=== PATIENT | female | born 1975 | race Caucasian/White ===

== ENCOUNTER → 2017-07-31 | Outpatient (CLI) | payer MEDICAID, SELFPAY | PROVIDERS: Family Provider Emergency Medicine; PCP Emergency Medicine; Visit Provider Emergency Medicine | DX: M54.5 Low back pain (principal) | CPT/HCPCS: 72148; 76376 ==

== ENCOUNTER 2017-08-20 18:55 | Emergency (ER) | payer MEDICAID, SELFPAY ==
[2017-08-20 18:56] VITALS: BP 82/51; PULSE 71; RESP 18; TEMP 36.9; O2SAT 95; BMI 36.9
--- NOTE | 2017-08-20 19:50 | XR_ITS ---
XR chest portable HISTORY: ITS.REASON: chest pain ORDERING PHYSICIAN: Anish Bhatti MD PATIENT AGE: 41 years COMPARISON: None available FINDINGS: The cardiomediastinal silhouette and pulmonary vascularity are within normal limits. There is a 7 mm nodular opacity in the right hilar region. While this may be related to a vessel on end, one cannot exclude possibility of a pulmonary nodule. As this is not readily apparent on the previous exam. The study is however slightly rotated. The lungs are otherwise clear with no acute findings.. No acute bony abnormalities. IMPRESSION: 1. No acute finding. 2. Nodular opacity right perihilar region possibly related to a vessel on end with mild rotation. Recommend upright PA and lateral chest for further evaluation.
[2017-08-20 20:06] LABS: Basophils # 0.1 K/mm3 (0-0.2); Basophils % 0.9 % (0.1-2.0); Eosinophils # 0.1 K/mm3 (0.0-0.4); Eosinophils % 1.5 % (0.1-12.0); Hemoglobin 14.7 g/dL (12.2-16.2); Lymphocytes # 3.9 K/mm3 (0.7-4.5); Lymphocytes % 40.5 K/mm3 (10-50); Mean Corpuscular HGB Conc 33.5 g/dL (31.8-35.4); Mean Corpuscular Hemoglobin 31.5 pg (27.0-31.2); Mean Corpuscular Volume 93.8 fl (81-99); Mean Platelet Volume 9.5 fl (7.4-10.4); Monocytes # 0.5 K/mm3 (0.1-1.0); Monocytes % 5.1 % (1.7-9.3); Neutrophils # 4.9 K/mm3 (1.8-7.8); Platelet Count 190 K/mm3 (142-424); Red Blood Count 4.69 M/mm3 (4.20-5.40); Red Cell Distribution Width 13.8 % (11.5-17.5); White Blood Count 9.5 K/mm3 (4.8-10.8)
--- NOTE | 2017-08-20 20:26 | PC.PHONENOTE ---
pt's yelled for help myself and Ekaterina went in and witnessedshaking and jerking on the bed, advised pt was having a seizure and she had a hx of them. Pt monitored and made sure she did not injure herself. Seizure pads in place at this time. notified.
[2017-08-20 20:27] LABS: Alanine Aminotransferase 23 U/L (12-78); Albumin Level 3.8 gm/dL (3.4-5.0); Alkaline Phosphatase 62 U/L (46-116); Aspartate Amino Transferase 16 U/L (15-37); Bilirubin,Total 0.3 mg/dL (0.2-1.0); Blood Urea Nitrogen 12 mg/dL (7-18); Calcium 9.2 mg/dL (8.5-10.1); Carbon Dioxide 33 mmol/L (21.0-32.0); Chloride 101 mmol/L (98-107); Creatine Kinase 79 U/L (26-192); Creatinine Clearance Estimated 176 mL/min (0-300); Creatinine,Serum 0.76 mg/dL (0.55-1.02); Estimated Glomerular Filt Rate 84 ml/min (>60); GFR (African American) 102 ML/MIN (>60); Globulin 3.8 gm/dl (1.3-3.2); Glucose 85 mg/dL (74-106); Sodium 138 mmol/L (136-145); Total Protein,Serum 7.6 gm/dL (6.4-8.2); Troponin I < 0.02 ng/ml (0.00-0.06)
[2017-08-20 20:31] LABS: CKMB Relative Index 0.6 U/L (0-4.0); Creatine Kinase MB < 0.5 mg/ml (0.0-3.6)
--- NOTE | 2017-08-20 22:11 | HMH.EDCP ---
ED Disposition Clinical Impression: Atypical chest pain Disposition: Home, Self-Care Condition on Discharge: Good Instructions: DI for Atypical Chest Pain Additional Instructions: see pcp for follow up Referrals: Jeevan Kevin MD [Primary Care Provider] - - Critical Care Critical Care Time: No Attestation: On 08/20/17, the high probability of a clinically significant, sudden or life threatening deterioration of the following system(s) required my full and direct attention, intervention and personal management. The time I documented below is in addition to time spent performing reported procedures but includes the following listed in this critical care notation. Medical Decision Making - Medical Records Medical records reviewed: Yes: I reviewed the patient's medical records. Vital Signs: 08/20/17 18:56 Temperature 98.4 F Temperature Source Oral Pulse Rate [Right Radial] 71 Respiratory Rate 18 Blood Pressure [Right Arm] 82/51 Blood Pressure Mean [Right Arm] 61 Blood Pressure Source [Right Arm] Automatic Cuff Blood Pressure Position [Right Arm] Supine 02 Sat by Pulse Oximetry 95 Oxygen Delivery Method Room Air - Lab Data Lab Results 08/20/17 19:00: WBC 9.5, RBC 4.69, Hgb 14.7, Hct 44.0, MCV 93.8, MCH 31.5 H, MCHC 33.5, RDW 13.8, Plt Count 190, MPV 9.5, Neut % (Auto) 52.0, Lymph % (Auto) 40.5, [place] % (Auto) 5.1, Eos % (Auto) 1.5, Baso % (Auto) 0.9, Neut # (Auto) 4.9, Lymph # (Auto) 3.9, [place] # (Auto) 0.5, Eos # (Auto) 0.1, Baso # (Auto) 0.1 08/20/17 19:00: Sodium 138, Potassium 4.0, Chloride 101, Carbon Dioxide 33 H, Anion Gap 8.0, BUN 12, Creatinine 0.76, Estimated Creat Clear 176, Estimated GFR 84, Est GFR ( Amer) 102, Glucose 85, Calcium 9.2, Total Bilirubin 0.3, AST 16, ALT 23, Alkaline Phosphatase 62, Total Creatine Kinase 79, CK-MB (CK-2) < 0.5, CK-MB (CK-2) Rel Index 0.6, Troponin I < 0.02, Total Protein 7.6, Albumin 3.8, Globulin 3.8 H, Albumin/Globulin Ratio 1.0 L Result diagrams: 08/20/17 19:00 08/20/17 19:00 Orders (Tests/Meds): ORDERS Category Date Time Status XR chest portable Stat Exams 08/20/17 19:50 Taken - Radiology Data #1 Image Reviewed: Yes I reviewed the patient's radiology image Preliminary Findings: Normal/NAD - ECG Data Tracing #1 I reviewed this ECG and interpreted as documented below: Ischemic changes: non-specific ST-T wave changes - Leonid Inquiry Pt receiving controlled substance: No Chest Pain HPI - General Chief Complaint: Chest Pain Stated Complaint: CHEST PAIN Time Seen by Provider: 08/20/17 20:30 Mode of Arrival: Ambulatory Source of Information: Patient, Significant Other, Medical Record Limitations: No Limitations Description of Symptoms (Recalled from ER Triage Doc. by RN): PT STATES THATS SHE HAS BEEN HAVING CHEST PAIN ALL DAY. PAIN FEELS LIKE SHE HAS SOMETHING SITTING ON HER CHEST AT A PAIN RATING OF 9 OUT OF 10. - History of Present Illness HPI narrative: this wf with ant chest pain today with no sob and no fever or chills no known card disease complaint: chest pain Onset (ago): day(s) Duration: now resolved Activity at onset: other Pain location: epigastric Pain radiation: none Relieving factors: nothing Risk Factors for CAD: Family Hx of CAD, Smoking Treatments prior to or on arrival for Cardiac Chest Pain: none - Related Data Allergies Allergy/AdvReac Type Severity Reaction Status Date / Time codeine [CODEINE] Allergy Intermediate Verified 08/20/17 19:04 Penicillins Allergy Intermediate Verified 08/20/17 19:04 [facility] History I have reviewed the patient's past medical history: Yes Fractures: Yes (FEMUR JAMES) - *Social History Smoking Status: Former smoker Tobacco Type: cigarettes Alcohol Intake: never - Psychiatric History Expresses thoughts of harming self/others: None Suicide Plan Description: No Plan ROS Obtained: Yes All systems reviewed & no additional complaints - Consti
--- NOTE | 2017-08-20 22:18 | ED_ITS ---
ED Disposition Clinical Impression: Atypical chest pain Disposition: Home, Self-Care Condition on Discharge: Good Instructions: DI for Atypical Chest Pain Additional Instructions: see pcp for follow up Referrals: Jeevan Kevin MD [Primary Care Provider] - - Critical Care Critical Care Time: No Attestation: On 08/20/17, the high probability of a clinically significant, sudden or life threatening deterioration of the following system(s) required my full and direct attention, intervention and personal management. The time I documented below is in addition to time spent performing reported procedures but includes the following listed in this critical care notation. Medical Decision Making - Medical Records Medical records reviewed: Yes: I reviewed the patient's medical records. Vital Signs: 08/20/17 18:56 Temperature 98.4 F Temperature Source Oral Pulse Rate [Right Radial] 71 Respiratory Rate 18 Blood Pressure [Right Arm] 82/51 Blood Pressure Mean [Right Arm] 61 Blood Pressure Source [Right Arm] Automatic Cuff Blood Pressure Position [Right Arm] Supine 02 Sat by Pulse Oximetry 95 Oxygen Delivery Method Room Air - Lab Data Lab Results 08/20/17 19:00: WBC 9.5, RBC 4.69, Hgb 14.7, Hct 44.0, MCV 93.8, MCH 31.5 H, MCHC 33.5, RDW 13.8, Plt Count 190, MPV 9.5, Neut % (Auto) 52.0, Lymph % (Auto) 40.5, [place] % (Auto) 5.1, Eos % (Auto) 1.5, Baso % (Auto) 0.9, Neut # (Auto) 4.9 , Lymph # (Auto) 3.9, [place] # (Auto) 0.5, Eos # (Auto) 0.1, Baso # (Auto) 0.1 08/20/17 19:00: Sodium 138, Potassium 4.0, Chloride 101, Carbon Dioxide 33 H, Anion Gap 8.0, BUN 12, Creatinine 0.76, Estimated Creat Clear 176, Estimated GFR 84, Est GFR ( Amer) 102, Glucose 85, Calcium 9.2, Total Bilirubin 0.3 , AST 16, ALT 23, Alkaline Phosphatase 62, Total Creatine Kinase 79, CK-MB (CK-2 ) < 0.5, CK-MB (CK-2) Rel Index 0.6, Troponin I < 0.02, Total Protein 7.6, Albumin 3.8, Globulin 3.8 H, Albumin/Globulin Ratio 1.0 L Result diagrams: 08/20/17 19:00 08/20/17 19:00 Orders (Tests/Meds): ORDERS Category Date Time Status XR chest portable Stat Exams 08/20/17 19:50 Taken - Radiology Data #1 Image Reviewed: Yes I reviewed the patient's radiology image Preliminary Findings: Normal/NAD - ECG Data Tracing #1 I reviewed this ECG and interpreted as documented below: Ischemic changes: non-specific ST-T wave changes - Leonid Inquiry Pt receiving controlled substance: No Chest Pain HPI - General Chief Complaint: Chest Pain Stated Complaint: CHEST PAIN Time Seen by Provider: 08/20/17 20:30 Mode of Arrival: Ambulatory Source of Information: Patient, Significant Other, Medical Record Limitations: No Limitations Description of Symptoms (Recalled from ER Triage Doc. by RN): PT STATES THATS SHE HAS BEEN HAVING CHEST PAIN ALL DAY. PAIN FEELS LIKE SHE HAS SOMETHING SITTING ON HER CHEST AT A PAIN RATING OF 9 OUT OF 10. - History of Present Illness HPI narrative: this wf with ant chest pain today with no sob and no fever or chills no known card disease complaint: chest pain Onset (ago): day(s) Duration: now resolved Activity at onset: other Pain location: epigastric Pain radiation: none Relieving factors: nothing Risk Factors for CAD: Family Hx of CAD, Smoking Treatments prior to or on arrival for Cardiac Chest Pain: none - Related Data
== END 2017-08-20 22:26 | disposition left against medical advice (07) ==
PROVIDERS: Emergency Provider Emergency Medicine; Family Provider Emergency Medicine; PCP Emergency Medicine
DX: R07.89 Other chest pain (principal); Z87.891 Personal history of nicotine dependence; Z88.0 Allergy status to penicillin; Z88.6 Allergy status to analgesic agent
CPT/HCPCS: 71045; 80053; 82550; 82553; 84484; 85025; 93005; 99283

== ENCOUNTER → 2017-10-22 15:22 | Outpatient (CLI) | payer MEDICAID, SELFPAY ==
[2017-10-22 20:18] LABS: Alanine Aminotransferase 29 U/L (12-78); Albumin Level 3.7 gm/dL (3.4-5.0); Albumin/Globulin Ratio 1.2 (1.1-1.8); Alkaline Phosphatase 66 U/L (46-116); Anion Gap 11.6 mEq/L (5-15); Aspartate Amino Transferase 14 U/L (15-37); Bilirubin,Total 0.4 mg/dL (0.2-1.0); Blood Urea Nitrogen 9 mg/dL (7-18); Calcium 9.1 mg/dL (8.5-10.1); Carbon Dioxide 31 mmol/L (21.0-32.0); Chloride 103 mmol/L (98-107); Creatinine,Serum 0.61 mg/dL (0.55-1.02); Estimated Glomerular Filt Rate 108 ml/min (>60); Free T4 (Free Thyroxine) 0.99 ng/dl (0.76-1.46); GFR (African American) 131 ML/MIN (>60); Globulin 3.2 gm/dl (1.3-3.2); Glucose 82 mg/dL (74-106); Potassium 4.6 mmoL/L (3.5-5.1); Sodium 141 mmol/L (136-145); Thyroid Stimulating Hormone 1.73 uIU/ml (0.358-3.740); Total Protein,Serum 6.9 gm/dL (6.4-8.2)
[2017-10-22 23:12] LABS: Amphetamine/Metha Screen,Urine Negative ng/mL (<1000); Barbiturates Screen,Urine Negative ng/mL (<200); Benzodiazepines Screen,Urine Negative ng/mL (200); Cannabinoid Screen,Urine Negative ng/mL (<50); Cocaine Screen,Urine Negative ng/g (<300); Methadone Screen,Urine Negative ng/mL (<300); Opiate Screen,Urine Negative ng/mL (<300); Phencyclidine Screen,Urine Negative ng/mL (<25)
== END ==
PROVIDERS: Visit Provider Nurse Practitioner Family
DX: Z79.899 Other long term (current) drug therapy (principal); R25.2 Cramp and spasm; R63.5 Abnormal weight gain
CPT/HCPCS: 80053; 80305; 84439; 84443

== ENCOUNTER → 2017-11-03 11:04 | Outpatient (CLI) | payer MEDICAID, SELFPAY ==
[2017-11-03 11:09] LABS: Microscopic, Urine URINE MICROSCOPIC (MICROSCOPIC)
--- NOTE | 2017-11-03 11:23 | XR_ITS ---
XR knee RT 4V HISTORY: Pain following injury ITS.REASON: s/p fall ORDERING PHYSICIAN: Trip Velazquez MD PATIENT AGE: 42 years COMPARISON: None FINDINGS: No acute fracture or dislocation. There is slight decrease in the joint space medially consistent with minimal osteoarthritic change. IMPRESSION: Minimal osteoarthritic change medial compartment otherwise negative
--- NOTE | 2017-11-03 11:23 | XR_ITS ---
XR ankle RT min 3V HISTORY: Pain and swelling following injury ITS.REASON: right ankle and foot swelling ORDERING PHYSICIAN: Trip Velazquez MD PATIENT AGE: 42 years COMPARISON: None FINDINGS: No fracture or dislocation. No lytic or blastic change. There is normal mineralization.. The joint spaces are well-preserved. No significant degenerative/arthritic changes. No erosive changes evident. IMPRESSION: Negative ankle, no acute finding
[2017-11-03 11:25] LABS: Appearance,Urine CLEAR (Clear); Bilirubin,Urine Negative (Negative); Blood, Urine Negative (Negative); Color,Urine YELLOW (Yellow); Glucose,Urine (UA) Negative (Negative); Ketones,Urine Negative (Negative); Leukocyte Esterase,Urine Negative (Negative); Nitrate,Urine Negative (Negative); Protein,Urine Negative (Negative); Specific Gravity, Urine 1.015 (1.005-1.030); Urobilinogen,Urine 0.2 EU/dl (0.2)
[2017-11-03 11:26] LABS: Basophils # 0.1 K/mm3 (0-0.2); Basophils % 0.4 % (0.1-2.0); Eosinophils # 0.1 K/mm3 (0.0-0.4); Eosinophils % 0.9 % (0.1-12.0); Hematocrit 47.8 % (37.0-47.0); Lymphocytes # 3.2 K/mm3 (0.7-4.5); Lymphocytes % 27.7 K/mm3 (10-50); Mean Corpuscular HGB Conc 33.4 g/dL (31.8-35.4); Mean Corpuscular Hemoglobin 31.8 pg (27.0-31.2); Mean Corpuscular Volume 95.2 fl (81-99); Mean Platelet Volume 9.3 fl (7.4-10.4); Monocytes # 0.5 K/mm3 (0.1-1.0); Monocytes % 4.6 % (1.7-9.3); Neutrophils # 7.6 K/mm3 (1.8-7.8); Neutrophils % 66.3 % (37.0-80.0); Platelet Count 208 K/mm3 (142-424); Red Blood Count 5.02 M/mm3 (4.20-5.40); Red Cell Distribution Width 13.5 % (11.5-17.5); White Blood Count 11.5 K/mm3 (4.8-10.8)
[2017-11-03 11:39] LABS: Bacteria,Urine Trace /lpf
[2017-11-03 13:01] LABS: Alanine Aminotransferase 23 U/L (12-78); Albumin Level 3.6 gm/dL (3.4-5.0); Albumin/Globulin Ratio 1.1 (1.1-1.8); Alkaline Phosphatase 62 U/L (46-116); Anion Gap 9.2 mEq/L (5-15); Aspartate Amino Transferase 20 U/L (15-37); Bilirubin,Total 0.4 mg/dL (0.2-1.0); Blood Urea Nitrogen 9 mg/dL (7-18); Carbon Dioxide 32 mmol/L (21.0-32.0); Chloride 100 mmol/L (98-107); Creatinine,Serum 0.63 mg/dL (0.55-1.02); Estimated Glomerular Filt Rate 104 ml/min (>60); GFR (African American) 126 ML/MIN (>60); Globulin 3.4 gm/dl (1.3-3.2); Glucose 91 mg/dL (74-106); Potassium 4.2 mmoL/L (3.5-5.1); Sodium 137 mmol/L (136-145)
== END ==
PROVIDERS: PCP Nurse Practitioner Family; Visit Provider Obstetrics & Gynecology
DX: M25.561 Pain in right knee (principal); M25.571 Pain in right ankle and joints of right foot; W19.XXXA Unspecified fall, initial encounter
CPT/HCPCS: 36415; 73564; 73610; 80053; 81001; 85025

== ENCOUNTER 2017-11-10 07:08 | Day surgery (SDC) | payer MEDICAID, SELFPAY ==
[2017-11-10] VITALS (23 sets, daily range): BP systolic 118–196; BP diastolic 60–148; PULSE 53–65; RESP 12–20; TEMP 36.1–43; O2SAT 89–96; BMI 37.2
--- NOTE | 2017-11-10 08:09 | HMH.ANESCL ---
[facility] Anesthesia Checklist - Patient Identification Patient Identification: Arm Band, Verbal (Name & ) - Structural Data Admitted From: Home Planned Operative Procedure/s: a and p repair Consent for Planned Operative Procedure(s) Verified: Yes Verified Documents: Surgical Consent, History and Physical - NPO Status Verified Time NPO: 00:00 - Chart Verification Results Verified: CBC, BMP - Additional verifications Patient : No Anesthesia Reactions: No Hx Blood Transfusions: No Blood Transfusion Reaction: No Cephalosporin Allergy: No Previous Colonoscopy: No - Cardiovascular Assessment Heart Sounds: S1 & S2 Pulse Strength: Baseline Pulse Rhythm: Regular Peripheral Edema: No - Airway Assessment C-Spine Mobility Assessed: Yes TMJ Mobility Assessed: Yes Dentition: Good Dentition - Neurological Assessment Level of Consciousness: Awake, Alert, Appropriate Hx Seizures: Yes (last one 3 months ago) Numbness or tingling in extremities: No - Anesthesia Plan Anesthesia Risk discussed: Yes Anesthesia Plan: Verified ASA Class: II Anesthesia Type: General [facility] Anesthesia HX I have reviewed the patient's past medical history: Yes Medical History: Reports:: Anxiety, Depression, Gastroesophageal Reflux Disease(GERD), Hypertension, Seizures Denies:: Cancer, Diabetes Mellitus Type 1, Diabetes Mellitus Type 2, MRSA Other Medical History: Reports: Arthritis, Other. Denies: Blood Transfusion Reaction Laterality Cases: Bilateral: Other Other Surgeries: Yes: Appendectomy, Cholecystectomy, Other Amputation: No Fractures: Yes (FEMUR JAMES) *Family Hx:: Asthma, Cancer, Diabetes, Heart Attack, Hyperlipidemia, Hypertension, Stroke, Thyroid Disorder
--- NOTE | 2017-11-10 08:12 | P.PN_ITS ---
[facility] Anesthesia Checklist - Patient Identification Patient Identification: Arm Band, Verbal (Name & ) - Structural Data Admitted From: Home Planned Operative Procedure/s: a and p repair Consent for Planned Operative Procedure(s) Verified: Yes Verified Documents: Surgical Consent, History and Physical - NPO Status Verified Time NPO: 00:00 - Chart Verification Results Verified: CBC, BMP - Additional verifications Patient : No Anesthesia Reactions: No Hx Blood Transfusions: No Blood Transfusion Reaction: No Cephalosporin Allergy: No Previous Colonoscopy: No - Cardiovascular Assessment Heart Sounds: S1 & S2 Pulse Strength: Baseline Pulse Rhythm: Regular Peripheral Edema: No - Airway Assessment C-Spine Mobility Assessed: Yes TMJ Mobility Assessed: Yes Dentition: Good Dentition - Neurological Assessment Level of Consciousness: Awake, Alert, Appropriate Hx Seizures: Yes (last one 3 months ago) Numbness or tingling in extremities: No - Anesthesia Plan Anesthesia Risk discussed: Yes Anesthesia Plan: Verified ASA Class: II Anesthesia Type: General [facility] Anesthesia HX I have reviewed the patient's past medical history: Yes Medical History: Reports:: Anxiety, Depression, Gastroesophageal Reflux Disease( GERD), Hypertension, Seizures Denies:: Cancer, Diabetes Mellitus Type 1, Diabetes Mellitus Type 2, MRSA Other Medical History: Reports: Arthritis, Other. Denies: Blood Transfusion Reaction Laterality Cases: Bilateral: Other Other Surgeries: Yes: Appendectomy, Cholecystectomy, Other Amputation: No Fractures: Yes (FEMUR JAMES) *Family Hx:: Asthma, Cancer, Diabetes, Heart Attack, Hyperlipidemia, Hypertension, Stroke, Thyroid Disorder
--- NOTE | 2017-11-10 09:15 | HMH.OPNOTE ---
Date of procedure: 11/10/17 Pre-op Diagnosis:: Symptomatic pelvic relaxation Post-op Diagnosis:: Symptomatic pelvic relaxation Procedure performed:: Anterior and posterior colporrhaphy's Surgeon:: Trip Vealzquez MD Starbucks Clerk(s):: DANIEL Bustamante STAMP MOUNTER:: Jaylon Urbina Anesthesia: GETA Estimated blood loss (mL): 100 Operative findings:: Symptomatic pelvic relaxation Operative note:: After the patient was prepped and draped in usual fashion and general anesthesia was administered, a weighted speculum was placed within the posterior fourchette of the vagina, and the vaginal cuff was grasped at each end with a long Devika clamp. The intervening scar of the vaginal cuff was excised with Metzenbaum scissors. The vaginal mucosa was then undermined up the midline to the urethral meatus, Allis clamps being placed on either side along the way. The endopelvic fascia was sharply and bluntly dissected free, and then interrupted U-sutures of 2-0 Vicryl were placed to elevate the urethrovesical angle. The excess vaginal mucosa was then trimmed, and the mucosa was closed with a running locked suture of 2-0 Vicryl. The vaginal cuff was closed with a running locked suture of #1 Vicryl. The posterior repair was carried out as had been the anterior repair, albeit in a yash-shaped fashion. Pelvic support appeared good at the close of the procedure. The urine was clear in the Bentley catheter. The sponge and needle count was correct. The patient tolerated the procedure well, and was taken to PACU in excellent condition. She will be discharged today, with her Bentley catheter, if her vital signs are stable. Condition: stable Disposition: same day Specimens:: None Complications:: None
--- NOTE | 2017-11-10 09:19 | P.OP_ITS ---
Date of procedure: 11/10/17 Pre-op Diagnosis:: Symptomatic pelvic relaxation Post-op Diagnosis:: Symptomatic pelvic relaxation Procedure performed:: Anterior and posterior colporrhaphy's Surgeon:: Trip Velazquez MD Cosmetics Machine Operator(s):: DANIEL Bustamante TEAM LEADER SURGERY:: Jaylon Urbina Anesthesia: GETA Estimated blood loss (mL): 100 Operative findings:: Symptomatic pelvic relaxation Operative note:: After the patient was prepped and draped in usual fashion and general anesthesia was administered, a weighted speculum was placed within the posterior fourchette of the vagina, and the vaginal cuff was grasped at each end with a long Devika clamp. The intervening scar of the vaginal cuff was excised with Metzenbaum scissors. The vaginal mucosa was then undermined up the midline to the urethral meatus, Allis clamps being placed on either side along the way. The endopelvic fascia was sharply and bluntly dissected free, and then interrupted U-sutures of 2-0 Vicryl were placed to elevate the urethrovesical angle. The excess vaginal mucosa was then trimmed, and the mucosa was closed with a running locked suture of 2-0 Vicryl. The vaginal cuff was closed with a running locked suture of #1 Vicryl. The posterior repair was carried out as had been the anterior repair, albeit in a yash-shaped fashion. Pelvic support appeared good at the close of the procedure. The urine was clear in the Bentley catheter. The sponge and needle count was correct. The patient tolerated the procedure well, and was taken to PACU in excellent condition. She will be discharged today, with her Bentley catheter, if her vital signs are stable. Condition: stable Disposition: same day Specimens:: None Complications:: None
--- NOTE | 2017-11-10 09:25 | HMH.ANESI ---
[facility] Anesthesia Record Part I Intake, IV Amount: 1,500 Estimated blood loss (mL): 50 Urine output (mL): 200 Blood Pressure: 150/100 SaO2: 93 Pulse Rate: 58 Respiratory Rate: 12 Temperature: 97.7 F Patient is:: Awake, Stable Stable to PACU at:: 09:20
--- NOTE | 2017-11-10 09:27 | P.PN_ITS ---
[facility] Anesthesia Record Part II Discharge Time: 09:50 Destination: [facility] PACU nurse assessment reviewed?: Yes Patient Condition:: Good Anesthesia Complications:: None
--- NOTE | 2017-11-10 09:27 | HMH.ANESII ---
[facility] Anesthesia Record Part II Discharge Time: 09:50 Destination: [facility] PACU nurse assessment reviewed?: Yes Patient Condition:: Good Anesthesia Complications:: None
[2017-11-10 10:37] LABS: Hematocrit 46.4 % (37.0-47.0); Hemoglobin 15.2 g/dL (12.2-16.2)
[2017-11-10 11:13] LABS: Microscopic,Cath URINE MICROSCOPIC (MICROSCOPIC)
[2017-11-10 11:57] LABS: Appearance,Urine/Cath CLEAR (Clear); Bilirubin,Cath Negative (Negative); Blood, Urine/Cath Negative (Negative); Color,Urine/Cath YELLOW (Yellow); Glucose,Urine/Cath (UA) Negative (Negative); Ketones,Urine/Cath Negative (Negative); Leukocyte Esterase,Cath Negative (Negative); Nitrate,Cath Negative (Negative); Protein,Urine/Cath Negative (Negative); Urobilinogen,Cath 0.2 EU/dl (0.2)
[2017-11-10 12:16] LABS: Bacteria,Urine/Cath TRACE /lpf
== END 2017-11-10 10:45 | disposition home or self-care (01) ==
LOC: OR 07:10
PROVIDERS: Family Provider Emergency Medicine; PCP Nurse Practitioner Family; Visit Provider Obstetrics & Gynecology
PROC: (CPT 57288; principal; 2017-11-10 08:30)
DX: N81.89 Other female genital prolapse (principal)
CPT/HCPCS: 57260; 81001; 85014; 85018; 96372; 96374; J1956; J2405

== ENCOUNTER → 2018-01-08 11:10 | Outpatient (CLI) | payer MEDICAID, SELFPAY ==
--- NOTE | 2018-01-08 11:11 | MR_ITS ---
MR knee RT wo con HISTORY: Right knee pain, prior fall with anterior and posterior pain ITS.REASON: osteoarthritis right knee ORDERING PHYSICIAN: Darin Ramirez MD PATIENT AGE: 42 years Comparison: 11/03/2017 TECHNIQUE: Standard multiplanar multiecho sequences are performed without contrast. FINDINGS: The cruciate ligaments, collateral ligaments, patellar tendon, and quadriceps tendon are intact. Posterior patellar cartilage is well-preserved. No meniscal tear apparent There are tricompartmental osteoarthritic changes with some decrease in the joint space and osteophyte formation. There is a small knee joint effusion. No fracture or dislocation. No bone marrow edema. IMPRESSION: 1. No internal derangement 2. Osteoarthritis with small knee joint effusion
== END ==
PROVIDERS: Family Provider Emergency Medicine; PCP Nurse Practitioner Family; Visit Provider Orthopaedic Surgery
DX: M17.11 Unilateral primary osteoarthritis, right knee (principal)
CPT/HCPCS: 73721

== ENCOUNTER → 2018-01-19 09:37 | Outpatient (POV) | payer MEDICAID, SELFPAY ==
[2018-01-19 09:46] VITALS: BP 118/74; PULSE 74; RESP 18; O2SAT 98
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
== END ==
PROVIDERS: Family Provider Emergency Medicine; PCP Nurse Practitioner Family; Visit Provider Clinical Nurse Specialist Family Health
DX: M46.1 Sacroiliitis, not elsewhere classified (principal)
CPT/HCPCS: 99202

== ENCOUNTER → 2018-01-28 10:59 | Outpatient (REF) | payer MEDICAID, SELFPAY ==
[2018-01-28 13:45] LABS: Amphetamine/Metha Screen,Urine Negative ng/mL (<1000); Barbiturates Screen,Urine Negative ng/mL (<200); Benzodiazepines Screen,Urine Negative ng/mL (200); Cannabinoid Screen,Urine Negative ng/mL (<50); Cocaine Screen,Urine Negative ng/g (<300); Methadone Screen,Urine Negative ng/mL (<300); Opiate Screen,Urine Negative ng/mL (<300); Phencyclidine Screen,Urine Negative ng/mL (<25)
== END ==
LOC: LAB 10:59
PROVIDERS: Visit Provider Nurse Practitioner Family
DX: G62.9 Polyneuropathy, unspecified (principal)
CPT/HCPCS: 80305

== ENCOUNTER → 2018-02-23 10:26 | Outpatient (CLI) | payer MEDICAID, SELFPAY ==
--- NOTE | 2018-02-23 10:27 | US_ITS ---
US transvaginal HISTORY: Previous hysterectomy ITS.REASON: pelvic pain ORDERING PHYSICIAN: Trip Velazquez MD PATIENT AGE: 42 years Comparison: Transvaginal ultrasound pelvis 05/06/2017 FINDINGS: The vaginal cuff appears normal. The left ovary measures 1.8 x 1.5 cm and shows homogeneous echogenicity. The right ovary measures 1.3 x 1.8 x 1.4 cm. The right ovary appears normal as well. There is no abnormal fluid collection. There is normal-appearing bowel noted. IMPRESSION: Post hysterectomy, grossly normal-appearing ovaries bilaterally, no abnormal fluid collection identified
== END ==
PROVIDERS: Family Provider Emergency Medicine; PCP Nurse Practitioner Family; Visit Provider Obstetrics & Gynecology
DX: R10.2 Pelvic and perineal pain (principal)
CPT/HCPCS: 76830

== ENCOUNTER → 2018-03-01 09:52 | Outpatient (POV) | payer MEDICAID, SELFPAY ==
--- NOTE | 2018-03-01 10:20 | HMH.PAINSOAP ---
[facility] Pain Management SOAP Note Subjective:: Patient is a pleasant 42-year-old white female who we are treating for low back pain. Patient has recently had a bilateral SI joint injection she states she got no relief from. Patient does not have any updated MRI imaging. Patient states she can feel popping in her back at all times she rates her pain an 8 out of 10 she states nothing helps it. Patient is currently in a Suboxone clinic. And a narcotic candidate. We will fill an MRI for the patient to discern pathology. ROS General: no recent weight change, no fever, no sleep disturbances Respiratory: no cough, no shortness of air, no recurring pulmonary infections Cardiovascular/Peripheral Vascular: No chest pain, No palpitations, no edema, no shortness of breath. Gastrointestinal: no incontinence, normal bowel movements reported Genitourinary: no incontinence Musculoskeletal: Back pain, hip pain Psychiatric: normal mood/ affect Neurological: [denies weakness in extremities], [denies balance issues] Objective:: Physical Exam General: Alert and oriented x3, no acute distress, pleasant and cooperative, [on room air] Lungs: Resps E/U, Symmetrical chest expansion, Eyes: PERRL Musculoskeletal: Flexion and extension of lumbar spine somewhat guarded secondary to pain, deep tendon reflexes normal, strength in upper and lower extremities [5/5], [abnormal gait noted] Neurological: speech clear, farmer vegetable equal, no gross sensory deficits Assessment:: Back pain, leg pain, hip pain Plan:: We will order a MRI for the patient and follow-up with her after we get the results. We will then make a plan of care. This note was dictated using voice recognition software and may contain errors or omissions
--- NOTE | 2018-03-01 10:24 | P.CONS_ITS ---
[facility] Pain Management SOAP Note Subjective:: Patient is a pleasant 42-year-old white female who we are treating for low back pain. Patient has recently had a bilateral SI joint injection she states she got no relief from. Patient does not have any updated MRI imaging. Patient states she can feel popping in her back at all times she rates her pain an 8 out of 10 she states nothing helps it. Patient is currently in a Suboxone clinic. And a narcotic candidate. We will fill an MRI for the patient to discern pathology. ROS General: no recent weight change, no fever, no sleep disturbances Respiratory: no cough, no shortness of air, no recurring pulmonary infections Cardiovascular/Peripheral Vascular: No chest pain, No palpitations, no edema, no shortness of breath. Gastrointestinal: no incontinence, normal bowel movements reported Genitourinary: no incontinence Musculoskeletal: Back pain, hip pain Psychiatric: normal mood/ affect Neurological: [denies weakness in extremities], [denies balance issues] Objective:: Physical Exam General: Alert and oriented x3, no acute distress, pleasant and cooperative, [ on room air] Lungs: Resps E/U, Symmetrical chest expansion, Eyes: PERRL Musculoskeletal: Flexion and extension of lumbar spine somewhat guarded secondary to pain, deep tendon reflexes normal, strength in upper and lower extremities [5/5], [abnormal gait noted] Neurological: speech clear, veterinary manager equal, no gross sensory deficits Assessment:: Back pain, leg pain, hip pain Plan:: We will order a MRI for the patient and follow-up with her after we get the results. We will then make a plan of care. This note was dictated using voice recognition software and may contain errors or omissions
[2018-03-01 11:03] VITALS: BP 140/79; PULSE 56; RESP 18; O2SAT 98; BMI 37.3
== END ==
PROVIDERS: Family Provider Emergency Medicine; PCP Nurse Practitioner Family; Visit Provider Clinical Nurse Specialist Family Health
DX: M54.5 Low back pain (principal)
CPT/HCPCS: 99212

== ENCOUNTER → 2018-03-08 13:00 | Outpatient (CLI) | payer MEDICAID, SELFPAY ==
--- NOTE | 2018-03-08 13:03 | MR_ITS ---
MR lumbar spine wo con HISTORY: Low back pain, bilateral leg pain, clicking in the low back straightening back, prior fusion ITS.REASON: BACK PAIN ORDERING PHYSICIAN: Zainab Brown PATIENT AGE: 42 years Comparison: 07/31/2017 TECHNIQUE: Standard multiplanar multiecho sequences are performed without contrast. 3-D MIP and myelographic images are also rendered and reviewed FINDINGS: Normal alignment. The spinal cord ends at the L1 level. L1-L2 and L2-L3 show mild facet hypertrophic change. L3-L4: Mild disc desiccation with minimal bulging disc and facet hypertrophy. The disc is slightly eccentric toward the right as before with mild bilateral foraminal narrowing. L4-L5: Degenerative disc disease with bulging disc which is eccentric towards the left along with facet and ligamentum flavum hypertrophy with moderate left-sided foraminal narrowing. There is minimal anterolisthesis of L4.. L5-S1: Mild degenerative disc disease with minimal bulging disc. No disc herniation or canal stenosis. IMPRESSION: No change in the mild lumbar spondylosis with degenerative disc disease and facet and ligamentum flavum hypertrophy with bulging discs and foraminal narrowing as detailed above. No disc herniation or canal stenosis.
== END ==
PROVIDERS: Family Provider Emergency Medicine; PCP Nurse Practitioner Family; Visit Provider Clinical Nurse Specialist Family Health
DX: M54.5 Low back pain (principal)
CPT/HCPCS: 72148; 76376

== ENCOUNTER → 2018-03-22 11:39 | Outpatient (POV) | payer MEDICAID, SELFPAY ==
[2018-03-22 11:42] VITALS: BP 130/82; PULSE 61; RESP 18; O2SAT 98; BMI 38.8
--- NOTE | 2018-03-22 12:29 | XR_ITS ---
XR foot wt bearing LT 3V HISTORY: Pain following injury ITS.REASON: TOE FRACTURE, FOOT/ANKLE PAIN ORDERING PHYSICIAN: Zainab Brown PATIENT AGE: 42 years COMPARISON: None FINDINGS: No acute fracture or dislocation is evident. There is a well-circumscribed bony density at the medial aspect of the medial cuneiform at the first metatarsal tarsal junction and may represent an accessory center of ossification. There is minimal hallux valgus. IMPRESSION: No acute finding
--- NOTE | 2018-03-22 12:29 | XR_ITS ---
XR ankle wt bearing LT min 3V HISTORY: Ankle pain ITS.REASON: TOE FRACTURE, FOOT/ANKLE PAIN ORDERING PHYSICIAN: Zainab Brown PATIENT AGE: 42 years Comparison: None FINDINGS: No fracture or dislocation. No lytic or blastic change. There is normal mineralization.. The joint spaces are well-preserved. No significant degenerative/arthritic changes. No erosive changes evident. IMPRESSION: Negative ankle, no acute finding
--- NOTE | 2018-03-22 12:29 | XR_ITS ---
XR foot wt bearing RT 3V HISTORY: Pain following injury ITS.REASON: TOE FRACTURE, FOOT/ANKLE PAIN ORDERING PHYSICIAN: Zainab Brown PATIENT AGE: 42 years COMPARISON: None FINDINGS: No fracture or dislocation. No lytic or blastic change. There is normal mineralization.. The joint spaces are well-preserved. No significant degenerative/arthritic changes. No erosive changes evident. IMPRESSION: Negative, no acute finding
--- NOTE | 2018-03-22 12:29 | XR_ITS ---
XR ankle wt bearing RT min 3V HISTORY: Ankle pain ITS.REASON: TOE FRACTURE, FOOT/ANKLE PAIN ORDERING PHYSICIAN: Zainab Brown PATIENT AGE: 42 years Comparison: None FINDINGS: No fracture or dislocation. No lytic or blastic change. There is normal mineralization.. The joint spaces are well-preserved. No significant degenerative/arthritic changes. No erosive changes evident. IMPRESSION: Negative ankle, no acute finding
--- NOTE | 2018-03-22 13:01 | HMH.PAINSOAP ---
[facility] Pain Management SOAP Note Subjective:: She is a pleasant 42-year-old white female who presents today for follow-up in regards to her MRI. Her last visit however patient has had 2 falls and a trip to the ER after several days due to what she states broken her toes. We will set the patient up with a trapper bird. Patient rates her pain an 8 out of 10 mostly her bilateral feet. Patient does have some pathology on her MRI however it has been unchanged since her last one. ROS General: no recent weight change, no fever, no sleep disturbances Respiratory: no cough, no shortness of air, no recurring pulmonary infections Cardiovascular/Peripheral Vascular: No chest pain, No palpitations, no edema, no shortness of breath. Gastrointestinal: no incontinence, normal bowel movements reported Genitourinary: no incontinence Musculoskeletal: Bilateral foot pain Psychiatric: normal mood/ affect Neurological: [denies weakness in extremities], [denies balance issues] Objective:: Physical Exam General: Alert and oriented x3, no acute distress, pleasant and cooperative, [on room air] Lungs: Resps E/U, Symmetrical chest expansion, Eyes: PERRL Musculoskeletal: Flexion and extension of lumbar spine somewhat guarded secondary to pain, deep tendon reflexes normal, strength in upper and lower extremities [5/5], [abnormal gait noted], patient presents with a boot on her right foot and left foot wrapped in Cameron bandages. Neurological: speech clear, dish up person equal, no gross sensory deficits Assessment:: Bilateral foot pain, degenerative disc disease of lumbar spine Plan:: We will set her up for x-rays along with a trapper bird appointment in regards to her bilateral foot pain. We will follow-up with her in 2 months and see how she is doing. At this time patient's foot pain is worse than her back pain. We will readdress her back pain at her next visit. Patient is on Suboxone and is not a narcotic candidate. This note was dictated using voice recognition software and may contain errors or omissions
--- NOTE | 2018-03-22 13:05 | P.CONS_ITS ---
[facility] Pain Management SOAP Note Subjective:: She is a pleasant 42-year-old white female who presents today for follow-up in regards to her MRI. Her last visit however patient has had 2 falls and a trip to the ER after several days due to what she states broken her toes. We will set the patient up with a pot runner. Patient rates her pain an 8 out of 10 mostly her bilateral feet. Patient does have some pathology on her MRI however it has been unchanged since her last one. ROS General: no recent weight change, no fever, no sleep disturbances Respiratory: no cough, no shortness of air, no recurring pulmonary infections Cardiovascular/Peripheral Vascular: No chest pain, No palpitations, no edema, no shortness of breath. Gastrointestinal: no incontinence, normal bowel movements reported Genitourinary: no incontinence Musculoskeletal: Bilateral foot pain Psychiatric: normal mood/ affect Neurological: [denies weakness in extremities], [denies balance issues] Objective:: Physical Exam General: Alert and oriented x3, no acute distress, pleasant and cooperative, [ on room air] Lungs: Resps E/U, Symmetrical chest expansion, Eyes: PERRL Musculoskeletal: Flexion and extension of lumbar spine somewhat guarded secondary to pain, deep tendon reflexes normal, strength in upper and lower extremities [5/5], [abnormal gait noted], patient presents with a boot on her right foot and left foot wrapped in Cameron bandages. Neurological: speech clear, stock patch sawyer equal, no gross sensory deficits Assessment:: Bilateral foot pain, degenerative disc disease of lumbar spine Plan:: We will set her up for x-rays along with a pot runner appointment in regards to her bilateral foot pain. We will follow-up with her in 2 months and see how she is doing. At this time patient's foot pain is worse than her back pain. We will readdress her back pain at her next visit. Patient is on Suboxone and is not a narcotic candidate. This note was dictated using voice recognition software and may contain errors or omissions
== END ==
PROVIDERS: Family Provider Emergency Medicine; PCP Nurse Practitioner Family; Visit Provider Clinical Nurse Specialist Family Health
DX: M79.672 Pain in left foot (principal); M79.671 Pain in right foot; M51.36 Other intervertebral disc degeneration, lumbar region
CPT/HCPCS: 73610; 73630; 99213

== ENCOUNTER → 2018-03-25 11:13 | Outpatient (REF) | payer MEDICAID, SELFPAY ==
[2018-03-25 14:42] LABS: Amphetamine/Metha Screen,Urine Negative ng/mL (<1000); Barbiturates Screen,Urine Negative ng/mL (<200); Benzodiazepines Screen,Urine Negative ng/mL (<200); Cannabinoid Screen,Urine Negative ng/mL (<50); Cocaine Screen,Urine Negative ng/mL (<300); Methadone Screen,Urine Negative ng/mL (<300); Opiate Screen,Urine Negative ng/mL (<300); Phencyclidine Screen,Urine Negative ng/mL (<25)
== END ==
LOC: LAB 11:13
PROVIDERS: Visit Provider Nurse Practitioner Family
DX: Z79.899 Other long term (current) drug therapy (principal)
CPT/HCPCS: 80305

== ENCOUNTER → 2018-04-06 13:11 | Outpatient (CLI) | payer MEDICAID, SELFPAY | PROVIDERS: PCP Nurse Practitioner Family; Visit Provider Nurse Practitioner Family | DX: G47.00 Insomnia, unspecified (principal) | CPT/HCPCS: 95806 ==

== ENCOUNTER → 2018-04-16 08:11 | Outpatient (CLI) | payer MEDICAID, SELFPAY ==
--- NOTE | 2018-04-16 08:25 | MR_ITS ---
MR ankle LT wo/w con HISTORY: Left ankle pain following injury. Anterior pain ITS.REASON: left ankle pain ORDERING PHYSICIAN: Jocelyn Arndt DPM PATIENT AGE: 42 years Comparison: 03/22/2018 TECHNIQUE: Standard multiplanar multiecho sequences are performed without and with gadolinium enhancement. FINDINGS: Motion artifact does obscure fine detail. There is a nondisplaced longitudinal fracture involving the posterior aspect of the distal tibia. Bone marrow edema is present at that region. The fracture does extend into the articular surface of the distal tibia with some minimal cortical irregularity of the articular surface posteriorly. There is some mild edema at the sinus Tarsi nonspecific There is thickening of the anterior tibiofibular ligament which may be due to underlying sprain. There is tear of the anterior talofibular ligament. There may be a small with a residual ligament fiber at the ATFL however, this is abnormal. The ATFL should be much thicker than this. The posterior tibiofibular and posterior talofibular ligaments appear intact. A small cyst is present in the mid aspect of the calcaneus superiorly and medially measuring approximately 8 x 5 mm. The coronal images are somewhat limited by motion artifact. The fibers of the deltoid ligament are sparse. Sprain of the deltoid ligament or partial tear is a consideration. Please correlate with physical exam. Unable to completely assess due to the motion. No abnormal enhancement apparent. The tendons about the ankle appear intact. There is a small ankle joint effusion. Bone marrow edema involves the posterior aspect of the distal tibia as well as the posterior and lateral aspect of the distal tibia. IMPRESSION: 1. Nondisplaced longitudinal fracture of the posterior distal tibia with articular involvement with underlying bone marrow edema. There is ankle joint effusion 2. Tear of the ATFL. 3. Thickening of the anterior tibiofibular ligament suggesting partial tear or sprain. 4. The fibers of the deltoid ligament are sparse. Motion artifact does obscure fine detail at this region. Partial tear or sprain of the deltoid ligament is considered.
[2018-04-16 08:36] LABS: Blood Urea Nitrogen 16 mg/dL (7-18); Creatinine,Serum 0.79 mg/dL (0.55-1.02); Estimated Glomerular Filt Rate 80 ml/min (>60); GFR (African American) 97 ML/MIN (>60)
== END ==
PROVIDERS: Family Provider Emergency Medicine; PCP Nurse Practitioner Family; Visit Provider Podiatrist
DX: M25.572 Pain in left ankle and joints of left foot (principal); S93.432A Sprain of tibiofibular ligament of left ankle, initial encounter; S93.492A Sprain of other ligament of left ankle, initial encounter
CPT/HCPCS: 36415; 73223; 82565; 84520; A9576

== ENCOUNTER → 2018-04-23 10:49 | Outpatient (CLI) | payer MEDICAID, SELFPAY ==
[2018-04-23 18:38] LABS: Amphetamine/Metha Screen,Urine Negative ng/mL (<1000); Barbiturates Screen,Urine Negative ng/mL (<200); Benzodiazepines Screen,Urine Negative ng/mL (<200); Cannabinoid Screen,Urine Negative ng/mL (<50); Cocaine Screen,Urine Negative ng/mL (<300); Methadone Screen,Urine Negative ng/mL (<300); Opiate Screen,Urine Negative ng/mL (<300); Phencyclidine Screen,Urine Negative ng/mL (<25)
== END ==
PROVIDERS: Visit Provider Nurse Practitioner Family
DX: Z79.899 Other long term (current) drug therapy (principal)
CPT/HCPCS: 80305

== ENCOUNTER → 2018-05-24 11:56 | Outpatient (POV) | payer MEDICAID, SELFPAY ==
[2018-05-24 12:14] VITALS: BP 108/60; PULSE 58; RESP 18; O2SAT 95; BMI 37.3
--- NOTE | 2018-05-24 12:43 | HMH.PAINSOAP ---
[facility] Pain Management SOAP Note Subjective:: Patient is a pleasant 42-year-old white female who presents today for follow-up. Patient is being treated for back pain along with radicular symptoms. Patient states her pain has become worse and worse. She rates it an 8 out of 10 today. Patient would like to discuss neuro stimulation. Patient is in a Suboxone clinic is a not a candidate for narcotic medications. Patient would like to discuss a anti-inflammatory regimen. Patient states she is on Mobic previously however she has not been on it lately. ROS General: no recent weight change, no fever, no sleep disturbances Respiratory: no cough, no shortness of air, no recurring pulmonary infections Cardiovascular/Peripheral Vascular: No chest pain, No palpitations, no edema, no shortness of breath. Gastrointestinal: no incontinence, normal bowel movements reported Genitourinary: no incontinence Musculoskeletal: Back pain, leg pain Psychiatric: normal mood/ affect Neurological: [denies weakness in extremities], [denies balance issues] Objective:: Physical Exam General: Alert and oriented x3, no acute distress, pleasant and cooperative, [on room air] Lungs: Resps E/U, Symmetrical chest expansion, Eyes: PERRL Musculoskeletal: Flexion and extension of lumbar spine somewhat guarded secondary to pain, deep tendon reflexes normal, strength in upper and lower extremities [5/5], [abnormal gait noted] Neurological: speech clear, carroter equal, no gross sensory deficits Assessment:: Degenerative disc disease lumbar spine with lumbar radiculopathy Plan:: Patient and I discussed in neurostimulator. Patient would like to move forward with this. Patient's tried and failed physical therapy, injections, anti-inflammatories. We will also start her back on Celebrex 200 mg 1 p.o. daily. Patient is not a narcotic candidate due to her Suboxone use. I believe that this would increase her functionality on a long-term basis. I will follow-up with the patient after her psychological evaluation. This note was dictated using voice recognition software and may contain errors or omissions
--- NOTE | 2018-05-24 12:46 | P.CONS_ITS ---
[facility] Pain Management SOAP Note Subjective:: Patient is a pleasant 42-year-old white female who presents today for follow-up. Patient is being treated for back pain along with radicular symptoms. Patient states her pain has become worse and worse. She rates it an 8 out of 10 today. Patient would like to discuss neuro stimulation. Patient is in a Suboxone clinic is a not a candidate for narcotic medications. Patient would like to discuss a anti-inflammatory regimen. Patient states she is on Mobic previously however she has not been on it lately. ROS General: no recent weight change, no fever, no sleep disturbances Respiratory: no cough, no shortness of air, no recurring pulmonary infections Cardiovascular/Peripheral Vascular: No chest pain, No palpitations, no edema, no shortness of breath. Gastrointestinal: no incontinence, normal bowel movements reported Genitourinary: no incontinence Musculoskeletal: Back pain, leg pain Psychiatric: normal mood/ affect Neurological: [denies weakness in extremities], [denies balance issues] Objective:: Physical Exam General: Alert and oriented x3, no acute distress, pleasant and cooperative, [on room air] Lungs: Resps E/U, Symmetrical chest expansion, Eyes: PERRL Musculoskeletal: Flexion and extension of lumbar spine somewhat guarded seconda ry to pain, deep tendon reflexes normal, strength in upper and lower extremities [5/5], [abnormal gait noted] Neurological: speech clear, division operations manager equal, no gross sensory deficits Assessment:: Degenerative disc disease lumbar spine with lumbar radiculopathy Plan:: Patient and I discussed in neurostimulator. Patient would like to move forward with this. Patient's tried and failed physical therapy, injections, anti- inflammatories. We will also start her back on Celebrex 200 mg 1 p.o. daily. Patient is not a narcotic candidate due to her Suboxone use. I believe that this would increase her functionality on a long-term basis. I will follow-up with the patient after her psychological evaluation. This note was dictated using voice recognition software and may contain errors or omissions
== END ==
PROVIDERS: Family Provider Emergency Medicine; PCP Nurse Practitioner Family; Visit Provider Clinical Nurse Specialist Family Health
DX: M51.16 Intervertebral disc disorders with radiculopathy, lumbar region (principal)
CPT/HCPCS: 99213

== ENCOUNTER → 2018-06-16 19:07 | Outpatient (CLI) | payer MEDICAID, SELFPAY ==
[2018-06-16 19:50] LABS: Basophils # 0.1 K/mm3 (0-0.2); Basophils % 0.9 % (0.1-2.0); Eosinophils # 0.2 K/mm3 (0.0-0.4); Eosinophils % 1.7 % (0.1-12.0); Hematocrit 46.1 % (37.0-47.0); Lymphocytes # 3.9 K/mm3 (0.7-4.5); Lymphocytes % 37.8 % (10-50); Mean Corpuscular HGB Conc 32.5 g/dL (31.8-35.4); Mean Corpuscular Hemoglobin 31.2 pg (27.0-31.2); Mean Corpuscular Volume 95.9 fl (81-99); Mean Platelet Volume 10.4 fl (7.4-10.4); Monocytes # 0.6 K/mm3 (0.1-1.0); Monocytes % 5.5 % (1.7-9.3); Neutrophils # 5.6 K/mm3 (1.8-7.8); Neutrophils % 54.2 % (37.0-80.0); Platelet Count 187 K/mm3 (142-424); Red Blood Count 4.81 M/mm3 (4.20-5.40); Red Cell Distribution Width 13.7 % (11.5-17.5); White Blood Count 10.4 K/mm3 (4.8-10.8)
[2018-06-16 21:13] LABS: Alanine Aminotransferase 28 U/L (12-78); Albumin Level 3.6 gm/dL (3.4-5.0); Albumin/Globulin Ratio 1.1 (1.1-1.8); Alkaline Phosphatase 85 U/L (46-116); Anion Gap 14.3 mEq/L (5-15); Aspartate Amino Transferase 23 U/L (15-37); Bilirubin,Total 0.2 mg/dL (0.2-1.0); Blood Urea Nitrogen 14 mg/dL (7-18); Calcium 8.7 mg/dL (8.5-10.1); Carbon Dioxide 28 mmol/L (21.0-32.0); Chloride 99 mmol/L (98-107); Chol/HDL Ratio 3.3 (1-3.5); Cholesterol 169 mg/dL (140-200); Creatinine,Serum 0.89 mg/dL (0.55-1.02); Estimated Glomerular Filt Rate 70 ml/min (>60); GFR (African American) 85 ML/MIN (>60); Globulin 3.3 gm/dl (1.3-3.2); Glucose 93 mg/dL (74-106); HDL Cholesterol 52 mg/dL (29-89); LDL Cholesterol 90 mg/dL (0-130); Potassium 4.3 mmoL/L (3.5-5.1); Sodium 137 mmol/L (136-145); T4 (Thyroxine) 6.5 ug/dl (4.7-13.3); Thyroid Stimulating Hormone 1.08 uIU/ml (0.358-3.740); Total Protein,Serum 6.9 gm/dL (6.4-8.2); Triglycerides 137 mg/dL (30-200); VLDL Cholesterol 27 mg/dL (0-40)
[2018-06-18 15:52] LABS: Vitamin D 25 Hydroxy 35.6 ng/mL (30.0-100.0)
== END ==
LOC: LAB 19:08 → LAB.DROPOF 06-17 11:15
PROVIDERS: PCP Physician Assistant; Visit Provider Physician Assistant
DX: R53.83 Other fatigue (principal)
CPT/HCPCS: 80053; 80061; 82652; 84436; 84443; 85025

== ENCOUNTER → 2018-07-20 15:19 | Outpatient (CLI) | payer MEDICAID, SELFPAY ==
[2018-07-20 16:31] LABS: Erythrocyte Sedimentation Rate 10 mm/hr (0-20)
[2018-07-20 18:17] LABS: Amphetamine/Metha Screen,Urine Negative ng/mL (<1000); Barbiturates Screen,Urine Negative ng/mL (<200); Benzodiazepines Screen,Urine Negative ng/mL (<200); Cannabinoid Screen,Urine Negative ng/mL (<50); Cocaine Screen,Urine Negative ng/mL (<300); Methadone Screen,Urine Negative ng/mL (<300); Opiate Screen,Urine Negative ng/mL (<300); Phencyclidine Screen,Urine Negative ng/mL (<25)
[2018-07-22 12:25] LABS: Anti-Centromere B Antibodies <0.2 AI (0.0-0.9); Anti-Jo-1 <0.2 AI (0.0-0.9); Anti-Smith Antibody <0.2 AI (0.0-0.9); Antichromatin Antibodies <0.2 AI (0.0-0.9); Antiscleroderma-70 Antibodies <0.2 AI (0.0-0.9); RNP Antibodies <0.2 AI (0.0-0.9); Sjogren's Anti-SS-A <0.2 AI (0.0-0.9); Sjogren's Anti-SS-B <0.2 AI (0.0-0.9)
[2018-07-22 15:22] LABS: Anti-DNA (DS) Ab Qn 1 IU/mL (0-9); RA Latex Turbid. <10.0 IU/mL (0.0-13.9)
[2018-07-23 03:37] LABS: PTT-LA 38.8 sec (0.0-51.9); dRVVT 43.9 sec (0.0-47.0)
[2018-07-23 06:04] LABS: Anti-Cyclic Citrullinated Pept 36 units (0-19); Lupus Reflex Interpretation Comment: (.)
== END ==
PROVIDERS: PCP Nurse Practitioner Family; Visit Provider Nurse Practitioner Family
DX: M25.50 Pain in unspecified joint (principal); R06.02 Shortness of breath; R60.9 Edema, unspecified; Z79.899 Other long term (current) drug therapy
CPT/HCPCS: 36415; 80305; 83880; 85613; 85651; 86140; 86200; 86225; 86235; 86431

== ENCOUNTER → 2018-08-12 07:17 | Outpatient (CLI) | payer MEDICAID, SELFPAY ==
--- NOTE | 2018-08-12 07:21 | CA_ITS ---
PROCEDURE: 2-D M-mode and color Doppler study INDICATIONS FOR THE TEST: Chest painX COPD Heart MurmurX Tobacco SmokingX Palpitations Fatigue Syncope Edema HypertensionXDiabetes Mellitus Rheumatic Fever SOB POLLARD ObesityXHyperlipidemiaX Family History HD Additional History PATIENT INFORMATION HEIGHT: 69 WEIGHT:266 GENDER: Female B/P:131/76 2-D/M-MODE INTERPRETATION: 2-D MEASUREMENTS OBSERVED VALUES IN CMS Right Ventricular Dimension (RVDd) 2.6 Interventricular Septum (Thickness)(IVsd) .8 Left Ventricular Internal Dimensions(LVIDd) 5.1 Left Ventricular Posterior Wall (Thickness)(LVPWd) 1.0 Aortic Root 3.3 Aortic Cusp Separation 1.9 Left Atrial Dimensions (LAD) 3.0 2D 1. Left atrium is mildly enlarged, left ventricle is normal size, there is mild qualitative concentric left ventricular hypertrophy, visually estimated ejection fraction 55% with no regional wall motion abnormality. 2. The right atrium and right ventricle are normal size and contractility. 3. The aortic, mitral and tricuspid valve are grossly normal. 4. The pulmonic valve is poorly visualized. 5. No significant pericardial effusion noted. DOPPLER INTERROGATION: Doppler interrogation of the aortic, mitral and tricuspid valvular presence of mild mitral and tricuspid regurgitation, tricuspid regurgitation jet velocity is inadequate for calculation of the right ventricular systolic pressure, grade 1 diastolic dysfunction seen without tissue Doppler evidence of raised left atrial pressure. CONCLUSION: 1. Mildly enlarged left atrium, normal left ventricular size, mild qualitative concentric left ventricular hypertrophy, visually estimated ejection fraction of 55% with no regional wall motion abnormality, grade 1 diastolic dysfunction seen without tissue Doppler evidence of raised left atrial pressure. 2. Mild mitral and tricuspid regurgitation 3. No significant pericardial effusion noted.
--- NOTE | 2018-08-12 07:21 | NM_ITS ---
History and Indications: Hypertension, tobacco use, family history, chest pain, shortness of breath, palpitations and fatigue Procedure: Patient received a 0.4 mg of intravenous Lexiscan, resting heart rate was 69 bpm resting blood pressure 120/75, with maximum heart rate achieved was 85 bpm is less than 85% of the maximum predicted heart rate and a blood pressure 112/66. With Lexiscan patient complained of shortness of breath and chest pressure. Electrocardiogram: Resting electrocardiogram showed sinus rhythm nonspecific ST-T changes, possible septal infarct, with Lexiscan there is less than 1.[address] segment depression noted from the baseline EKG. The EKG portion of the Lexiscan Myoview is nondiagnostic. Cardiac stress and resting SPECT images: Cardiac stress and resting SPECT images were obtained using technetium 99 Myoview 32.3 mCi at stress and 10.3 mCi at rest, gated SPECT further analysis of segmental wall motion and calculation of the ejection fraction also done. Cardiac stress and resting SPECT show uniform myocardial activity without segmental perfusion abnormality, computer derived ejection fraction is 63% with no regional wall motion abnormality, right ventricle is normal size and contractility. Conclusion: 1. The EKG portion of the Lexiscan Myoview is nondiagnostic. 2. No scintigraphic evidence of reversible ischemia seen, computer derived ejection fraction is 63% with no regional wall motion abnormality, right ventricle is normal size and contractility. 3. Normal Lexiscan Myoview study.
--- NOTE | 2018-08-12 07:21 | CI_ITS ---
Cerebrovascular Exam Indications: 785.9 Bruit. IMPRESSIONS 1. The bilateral vertebral arteries are patent with normal antegrade flow. 2. Study suggests less than 20% stenosis involving the right internal carotid artery. 3. Study suggests 20-49% stenosis involving the left internal carotid artery, lower end of scale. Carotid duplex study. Complete study and Doppler flow study including spectral analysis, color and cole scale imaging. Height: Height: 175.3cm. Height: 69in. Weight: Weight: 120.7kg. Weight: 265.4lb. Body mass index: BMI: 39.3kg/m^2. Body surface area: BSA: 2.48m^2. Location: Vascular laboratory. Patient status: Outpatient. Tables: Arterial flow: + +--------+--------+ Location V sys V ed + +--------+--------+ Right CCA - proximal 110cm/s 31.4cm/s + +--------+--------+ Right CCA - distal 91.1cm/s 36.9cm/s + +--------+--------+ Right ECA 118cm/s -------- + +--------+--------+ Right ICA - proximal 86.7cm/s 29.5cm/s + +--------+--------+ Right ICA - mid 84.9cm/s 33.9cm/s + +--------+--------+ Right ICA - distal 91.1cm/s 40.2cm/s + +--------+--------+ Right vertebral 40.5cm/s -------- + +--------+--------+ Left CCA - proximal 158cm/s 40.1cm/s + +--------+--------+ Left CCA - distal 103cm/s 33.8cm/s + +--------+--------+ Left ECA 96.6cm/s -------- + +--------+--------+ Left ICA - proximal 118cm/s 45.3cm/s + +--------+--------+ Left ICA - mid 109cm/s 43.4cm/s + +--------+--------+ Left ICA - distal 124cm/s 59.7cm/s + +--------+--------+ Left vertebral 58.9cm/s -------- + +--------+--------+ Velocity ratios: + + + + + + Right, V sys Right, V ed Left, V sys Left, V ed + + + + + + Max ICA/dist CCA 1 1.09 1.2 1.77 + + + + + + (Report amended ) Electronically signed by: Shimon Trinidad [id number]
--- NOTE | 2018-08-12 10:27 | HMH.ITSHM ---
Current Home Medications as stated by this patient Sarah Alexander or veterans contact representative. []trazodone propranolol pantoprazole mupirocin tolterodine gabapentin celecoxib asa amlodipine estradiol
== END ==
PROVIDERS: PCP Emergency Medicine; Visit Provider Internal Medicine
DX: R07.9 Chest pain, unspecified (principal); R00.1 Bradycardia, unspecified; E78.5 Hyperlipidemia, unspecified; G47.33 Obstructive sleep apnea (adult) (pediatric); I10 Essential (primary) hypertension
CPT/HCPCS: 78452; 93017; 93306; 93880; A9502; J2785

== ENCOUNTER → 2018-09-23 11:10 | Outpatient (CLI) | payer MEDICAID, SELFPAY | PROVIDERS: Visit Provider Internal Medicine Cardiovascular Disease | DX: I51.89 Other ill-defined heart diseases (principal) | CPT/HCPCS: 36415; 83880 ==

== ENCOUNTER → 2018-10-07 11:15 | Outpatient (CLI) | payer MEDICAID, SELFPAY ==
[2018-10-07 12:37] LABS: Anion Gap 14.6 mEq/L (5-15); Blood Urea Nitrogen 16 mg/dL (7-18); Calcium 9.5 mg/dL (8.5-10.1); Carbon Dioxide 30 mmol/L (21.0-32.0); Chloride 98 mmol/L (98-107); Estimated Glomerular Filt Rate 50 ml/min (>60); GFR (African American) 60 ML/MIN (>60); Glucose 81 mg/dL (74-106); Potassium 4.6 mmoL/L (3.5-5.1); Sodium 138 mmol/L (136-145)
== END ==
PROVIDERS: Visit Provider Internal Medicine Cardiovascular Disease
DX: E78.2 Mixed hyperlipidemia (principal); I10 Essential (primary) hypertension; I51.89 Other ill-defined heart diseases; R60.9 Edema, unspecified
CPT/HCPCS: 36415; 80048; 83880

== ENCOUNTER → 2018-10-12 14:58 | Outpatient (CLI) | payer MEDICAID, SELFPAY ==
[2018-10-12 16:56] LABS: Anion Gap 12.4 mEq/L (5-15); Blood Urea Nitrogen 11 mg/dL (7-18); Calcium 8.6 mg/dL (8.5-10.1); Carbon Dioxide 30 mmol/L (21.0-32.0); Chloride 102 mmol/L (98-107); Creatinine,Serum 0.91 mg/dL (0.55-1.02); Estimated Glomerular Filt Rate 68 ml/min (>60); GFR (African American) 82 ML/MIN (>60); Glucose 85 mg/dL (74-106); Potassium 4.4 mmoL/L (3.5-5.1); Sodium 140 mmol/L (136-145)
== END ==
PROVIDERS: Visit Provider Internal Medicine Cardiovascular Disease
DX: I51.89 Other ill-defined heart diseases (principal); R60.9 Edema, unspecified; I10 Essential (primary) hypertension; E78.2 Mixed hyperlipidemia
CPT/HCPCS: 36415; 80048; 83880

== ENCOUNTER → 2018-11-22 09:07 | Outpatient (CLI) | payer MEDICAID, SELFPAY ==
--- NOTE | 2018-11-22 09:11 | FL_ITS ---
EXAM: Barium swallow/esophagram. INDICATION: ITS.REASON: Dysphagia ORDERING PHYSICIAN: Nadeem Murphy MD PATIENT AGE: 43 years COMPARISON: None TECHNIQUE: In the upright position the patient was observed to swallow barium in both the AP and lateral view. The cervical esophagus was examined under fluoroscopy with images obtained. The patient was then placed prone in the right anterior oblique position and was observed to swallow barium with Valsalva technique . FLUOROSCOPY TIME: 1 minute and 9 seconds FINDINGS: There was no evidence of aspiration. There was normal peristalsis. No filling defects or mucosal abnormalities. No masses or strictures. No hiatal hernia or reflux demonstrated. The esophagus is midline without evidence of external compression. IMPRESSION: Negative barium swallow.
== END ==
PROVIDERS: PCP Emergency Medicine; Visit Provider Otolaryngology
DX: R13.10 Dysphagia, unspecified (principal)
CPT/HCPCS: 74220

== ENCOUNTER → 2018-11-22 09:59 | Outpatient (POV) | payer MEDICAID, SELFPAY ==
[2018-11-22 10:45] VITALS: BP 136/91; PULSE 88; RESP 18; O2SAT 98; BMI 40.8
--- NOTE | 2018-11-22 12:56 | HMH.PAINSOAP ---
[facility] Pain Management SOAP Note Subjective:: Patient is a very pleasant 43-year-old white female who presents today for follow-up. She is being treated for back pain along with radicular symptoms. She rates her pain an 8 out of 10. Patient and I have discussed neuro stimulation. She is in a Suboxone clinic. She is not a candidate for narcotic medications. Patient is on anti-inflammatories. She is not on any anticoagulation therapy. Patient states that her pain is not controlled. Patient states it is interfering with her daily activities. Patient has tried and failed physical therapy, multiple injection therapies. She is tried and failed medications. ROS General: no recent weight change, no fever, no sleep disturbances Respiratory: no cough, no shortness of air, no recurring pulmonary infections Cardiovascular/Peripheral Vascular: No chest pain, No palpitations, no edema, no shortness of breath. Gastrointestinal: no incontinence, normal bowel movements reported Genitourinary: no incontinence Musculoskeletal: Back pain, leg pain Psychiatric: normal mood/ affect, Neurological: [denies weakness in extremities], [denies balance issues] Objective:: Physical Exam General: Alert and oriented x3, no acute distress, pleasant and cooperative, [on room air] Lungs: Resps E/U, Symmetrical chest expansion, Eyes: PERRL Musculoskeletal: Flexion and extension of lumbar spine somewhat guarded secondary to pain, deep tendon reflexes normal, strength in upper and lower extremities [5/5], [abnormal gait noted] Neurological: speech clear, financial operations consultant equal, no gross sensory deficits Assessment:: 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 Patient is not a narcotic candidate due to her Suboxone use at this time. I will follow-up with the patient after her stimulator trial and reassess her symptoms at that time. Dr. Kohler has reviewed this note and agrees with this plan of care. This note was dictated using voice recognition software and may contain errors or omissions
--- NOTE | 2018-11-22 13:02 | P.CONS_ITS ---
[facility] Pain Management SOAP Note Subjective:: Patient is a very pleasant 43-year-old white female who presents today for follow-up. She is being treated for back pain along with radicular symptoms. She rates her pain an 8 out of 10. Patient and I have discussed neuro stimulation. She is in a Suboxone clinic. She is not a candidate for narcotic medications. Patient is on anti-inflammatories. She is not on any anticoagulation therapy. Patient states that her pain is not controlled. Patient states it is interfering with her daily activities. Patient has tried and failed physical therapy, multiple injection therapies. She is tried and failed medications. ROS General: no recent weight change, no fever, no sleep disturbances Respiratory: no cough, no shortness of air, no recurring pulmonary infections Cardiovascular/Peripheral Vascular: No chest pain, No palpitations, no edema, no shortness of breath. Gastrointestinal: no incontinence, normal bowel movements reported Genitourinary: no incontinence Musculoskeletal: Back pain, leg pain Psychiatric: normal mood/ affect, Neurological: [denies weakness in extremities], [denies balance issues] Objective:: Physical Exam General: Alert and oriented x3, no acute distress, pleasant and cooperative, [on room air] Lungs: Resps E/U, Symmetrical chest expansion, Eyes: PERRL Musculoskeletal: Flexion and extension of lumbar spine somewhat guarded secondary to pain, deep tendon reflexes normal, strength in upper and lower extremities [5/5], [abnormal gait noted] Neurological: speech clear, custom bookbinder equal, no gross sensory deficits Assessment:: 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 Patient is not a narcotic candidate due to her Suboxone use at this time. I will follow-up with the patient after her stimulator trial and reassess her symptoms at that time. Dr. Kohler has reviewed this note and agrees with this plan of care. This note was dictated using voice recognition software and may contain errors or omissions
== END ==
PROVIDERS: PCP Physician Assistant; Visit Provider Clinical Nurse Specialist Family Health
DX: M51.16 Intervertebral disc disorders with radiculopathy, lumbar region (principal)
CPT/HCPCS: 99212

== ENCOUNTER → 2018-12-07 08:51 | Outpatient (POV) | payer MEDICAID, SELFPAY ==
[2018-12-07 09:19] VITALS: BP 151/94; PULSE 77; RESP 18; O2SAT 98; BMI 40.8
--- NOTE | 2018-12-07 15:05 | P.CONS_ITS ---
[facility] Pain Management SOAP Note Subjective:: Patient is a pleasant 43-year-old white female who presents today post spinal cord stimulator trial lead placement. Patient is doing well she rates her pain a 5 out of 10 mostly in her SI joint. Patient states that all of the radicular pain has dissipated. She rates that pain is 0 out of 10. Patient states she is more functional. She is not interested in any injections. Patient is currently in a Suboxone clinic. Patient states that this is been a successful trial. ROS General: no recent weight change, no fever, no sleep disturbances Respiratory: no cough, no shortness of air, no recurring pulmonary infections Cardiovascular/Peripheral Vascular: No chest pain, No palpitations, no edema, no shortness of breath. Gastrointestinal: no incontinence, normal bowel movements reported Genitourinary: no incontinence Musculoskeletal: Back pain, leg pain Psychiatric: normal mood/ affect Neurological: [denies weakness in extremities], [denies balance issues] Objective:: Physical Exam General: Alert and oriented x3, no acute distress, pleasant and cooperative, [on room air] Lungs: Resps E/U, Symmetrical chest expansion, Eyes: PERRL Musculoskeletal: Flexion and extension of lumbar spine somewhat guarded secondary to pain, deep tendon reflexes normal, strength in upper and lower extremities [5/5], [abnormal gait noted] Neurological: speech clear, rn traveling equal, no gross sensory deficits Assessment:: 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 Patient has done well. She is not on any anticoagulation therapy. Dr. Kohler has reviewed this note and agrees with this plan of care. This note was dictated using voice recognition software and may contain errors or omissions
== END ==
PROVIDERS: PCP Physician Assistant; Visit Provider Clinical Nurse Specialist Family Health
DX: M51.16 Intervertebral disc disorders with radiculopathy, lumbar region (principal)
CPT/HCPCS: 99212

== ENCOUNTER → 2019-01-25 08:49 | Outpatient (POV) | payer MEDICAID, SELFPAY ==
[2019-01-25 09:13] VITALS: BP 133/77; PULSE 57; RESP 18; O2SAT 98; BMI 40.6
--- NOTE | 2019-01-25 09:18 | HMH.PAINSOAP ---
[facility] Pain Management SOAP Note Subjective:: Patient is a pleasant 43-year-old white female resents today post spinal cord stimulator trial lead placement. She is complaining of severe low back pain, rating her pain a 10 out of 10 today. Patient says that she is unable to perform daily functions, I cannot spend time with my family, I am miserable, and I need something to help with the pain . She discussed concerns with her medication regimen. She states I think that pills would help me until I can get approved for the neurostimulator . Patient currently in a Suboxone treatment center. She also states I know I have had a pill problem in the past, but that does not mean I should stay in pain. No one is helping me with my pain . We will appeal her denial for her neurostimulator. Patient did get 80% relief of her symptoms during her trial. She was much more functional. She has had this pain for over 2 years. She is failed other conservative measures including medications, anti-inflammatories, injection therapy. ROS General: no recent weight change, no fever, no sleep disturbances Respiratory: no cough, no shortness of air, no recurring pulmonary infections Cardiovascular/Peripheral Vascular: No chest pain, No palpitations, no edema, no shortness of breath. Gastrointestinal: no incontinence, normal bowel movements reported Genitourinary: no incontinence Musculoskeletal: Back pain Psychiatric: normal mood/ affect, [denies depression], [denies anxiety] Neurological: [denies weakness in extremities], [denies balance issues] Objective:: Physical Exam General: Alert and oriented x3, no acute distress, pleasant and cooperative, [on room air] Lungs: Resps E/U, Symmetrical chest expansion, Eyes: PERRL Musculoskeletal: Flexion and extension of lumbar spine somewhat guarded secondary to pain, deep tendon reflexes normal, strength in upper and lower extremities [5/5], [abnormal gait noted] Neurological: speech clear, corporate development officer equal, no gross sensory deficits Assessment:: Degenerative disc disease lumbar spine with lumbar radiculopathy, CRPS type II Plan:: We did have a thorough discussion on the patient's oral medication regimen. We discussed that we are unable to prescribe her any oral narcotics as the patient is given Suboxone therapy. We also discussed injection therapy, for which she feels an epidural may be beneficial. We will schedule the patient for a bar epidural steroid injection at L4 and L5. The patient's not on any anticoagulation therapy. We will reassess her after her procedure. She is been instructed to call the office if she has any concerns prior to her appointment. Dr. Kohler has reviewed this note and agrees with this plan of care. This note was dictated using voice recognition software and may contain errors or omissions
== END ==
PROVIDERS: PCP Physician Assistant; Visit Provider Clinical Nurse Specialist Family Health
DX: M51.16 Intervertebral disc disorders with radiculopathy, lumbar region (principal)
CPT/HCPCS: 99212

== ENCOUNTER → 2019-03-14 12:40 | Outpatient (POV) | payer MEDICAID, SELFPAY ==
[2019-03-14 13:11] VITALS: BP 126/78; PULSE 60; RESP 18; O2SAT 98; BMI 40.6
--- NOTE | 2019-03-14 13:14 | P.CONS_ITS ---
[facility] Pain Management SOAP Note Subjective:: Patient is a pleasant 43-year-old white female who presents today for follow-up after lumbar epidural steroid injection. She rates the pain a 5 out of 10 and she states she is doing well at this time. She states that she got 80% relief with her for her pain is starting to begin to return. Patient currently on Suboxone therapy is not a candidate for any narcotic medications. She has had a neurostimulator trial with 80 to 90% success. She would like to move forward with a permanent implant. Patient is walking better today. Her range of motion is better. Patient has color changes in bilateral lower extremities and temperature changes. She has numbness and tingling in bilateral lower extr emities as well. ROS General: no recent weight change, no fever, no sleep disturbances Respiratory: no cough, no shortness of air, no recurring pulmonary infections Cardiovascular/Peripheral Vascular: No chest pain, No palpitations, no edema, no shortness of breath. Gastrointestinal: no incontinence, normal bowel movements reported Genitourinary: no incontinence Musculoskeletal: Back pain, leg pain Psychiatric: normal mood/ affect Neurological: Weakness in bilateral lower extremities at times, [denies balance issues] Objective:: Physical Exam General: Alert and oriented x3, no acute distress, pleasant and cooperative, [on room air] Lungs: Resps E/U, Symmetrical chest expansion, Eyes: PERRL Musculoskeletal: Flexion and extension of lumbar spine somewhat guarded secondary to pain, deep tendon reflexes normal, strength in upper and lower extremities [5/5], [abnormal gait noted] Neurological: speech clear, cargo checker equal, no gross sensory deficits Assessment:: Degenerative disc disease lumbar spine with lumbar radiculopathy symptoms and CRPS type II Plan:: Darvin additional L4-L5 epidural steroid injection given the efficacy of the last one. She is not on any anticoagulation therapy and is continuing a home stretching program. Patient would like to move forward with a neurostimulator implant given the efficacy of the trial. I believe it would be beneficial for her. Dr. Kohler has reviewed this note and agrees with this plan of care. This note was dictated using voice recognition software and may contain errors or omissions Pain Management Hx Components *Have you ever received a pneumonia vaccine?: No *Have you received a flu vaccine this season?: No - *Social History *Occupational Status:: other *Travel in the last 8 weeks: None
== END ==
PROVIDERS: PCP Physician Assistant; Visit Provider Clinical Nurse Specialist Family Health
DX: M51.16 Intervertebral disc disorders with radiculopathy, lumbar region (principal)
CPT/HCPCS: 99212

== ENCOUNTER → 2019-05-02 10:07 | Outpatient (POV) | payer MEDICAID, SELFPAY ==
[2019-05-02 10:35] VITALS: BP 123/79; PULSE 68; RESP 18; O2SAT 98; BMI 38.7
--- NOTE | 2019-05-02 12:21 | HMH.PAINSOAP ---
[facility] Pain Management SOAP Note Subjective:: Patient is a 43-year-old white female who presents today for follow-up after epidural steroid injection. Patient rates her pain a 10 out of 10. She seems to have a difficult time getting comfortable. I discussed going to the emergency room with her she states I hate the emergency room . She is asking me what I can do for her pain. Patient is on Suboxone therapy is not a candidate for any narcotic medications she is currently on anti-inflammatories. Patient also states that she has fibromyalgia. She is unsure which physician diagnosed her with this. Patient is currently on gabapentin which I explained to her is the appropriate treatment for gabapentin. Patient and I discussed potentially adding Tylenol for some period of time while waiting her neurostimulator implantation. Patient states that a physician told her not to take Tylenol however she is unsure of who and why this was sent. She has numbness and tingling in bilateral lower extremities. She states that the injection did not help. Patient is also on Cymbalta and Elavil. Patient is tried Lyrica. Patient states that she would like to understand what kind of pain medication she will get post stimulator implant I discussed that we will only use Tylenol and ibuprofen for pain relief. ROS General: no recent weight change, no fever, no sleep disturbances Respiratory: no cough, no shortness of air, no recurring pulmonary infections Cardiovascular/Peripheral Vascular: No chest pain, No palpitations, no edema, no shortness of breath. Gastrointestinal: no incontinence, normal bowel movements reported Genitourinary: no incontinence Musculoskeletal: Back pain, leg pain Psychiatric: Anxious Neurological: [denies new onset weakness in extremities], [denies new onset balance issues] Objective:: Physical Exam General: Alert and oriented x3, no acute distress, pleasant and cooperative, [on room air] Lungs: Resps E/U, Symmetrical chest expansion, Eyes: PERRL Musculoskeletal: Flexion and extension of lumbar spine somewhat guarded secondary to pain, deep tendon reflexes normal, strength in upper and lower extremities [5/5], [abnormal gait noted] Neurological: speech clear, tractor sweeper driver equal, no gross sensory deficits Assessment:: 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 I ensure that I have explained to the patient she will not be receiving any narcotic medication post implant. Patient is also medications for her current situation. Patient again refused to go to the ER. I will follow-up with the patient after her stimulator placement she is been instructed to call the office if she has any issues prior to her next appointment. Dr. Kohler has reviewed this note and agrees with this plan of care. This note was dictated using voice recognition software and may contain errors or omissions [facility] History I have reviewed the patient's past medical history: Yes Medical History: Reports:: Anxiety, Cancer, Depression, Gastroesophageal Reflux Disease(GERD), Hypertension, Seizures Denies:: Diabetes Mellitus Type 1, Diabetes Mellitus Type 2, MRSA *Have you ever received a pneumonia vaccine?: Yes *Have you received a flu vaccine this season?: Yes Other Medical History: Reports: Arthritis, Other. Denies: Blood Transfusion Reaction Laterality Cases: Bilateral: Other Other Surgeries: Yes: Appendectomy, Cardiac Catheterization, Cholecystectomy, Hysterectomy-Total, Hysterectomy-Partial, Other Amputation: No Fractures: Yes (FEMUR JAMES) - *Social History Smoking Status: Current every day smoker Tobacco Type: cigarettes # Packs/Day (cigarettes): 1 #Yrs smoked (if former smoker): 35 Alcohol Intake: never Alcohol Intake Frequency:: other Substance Use Type: former substance user, marijuana, painkillers *Occupational Status:: oth
--- NOTE | 2019-05-02 12:24 | P.CONS_ITS ---
[facility] Pain Management SOAP Note Subjective:: Patient is a 43-year-old white female who presents today for follow-up after epidural steroid injection. Patient rates her pain a 10 out of 10. She seems to have a difficult time getting comfortable. I discussed going to the emergency room with her she states I hate the emergency room . She is asking me what I can do for her pain. Patient is on Suboxone therapy is not a candidate for any narcotic medications she is currently on anti-inflammatories. Patient also states that she has fibromyalgia. She is unsure which physician diagnosed her with this. Patient is currently on gabapentin which I explained to her is the appropriate treatment for gabapentin. Patient and I discussed potentially adding Tylenol for some period of time while waiting her neurostimulator implantation. Patient states that a physician told her not to take Tylenol however she is unsure of who and why this was sent. She has numbness and tingling in bilateral lower extremities. She states that the injection did not help. Patient is also on Cymbalta and Elavil. Patient is tried Lyrica. Patient states that she would like to understand what kind of pain medication she will get post stimulator implant I discussed that we will only use Tylenol and ibuprofen for pain relief. ROS General: no recent weight change, no fever, no sleep disturbances Respiratory: no cough, no shortness of air, no recurring pulmonary infections Cardiovascular/Peripheral Vascular: No chest pain, No palpitations, no edema, no shortness of breath. Gastrointestinal: no incontinence, normal bowel movements reported Genitourinary: no incontinence Musculoskeletal: Back pain, leg pain Psychiatric: Anxious Neurological: [denies new onset weakness in extremities], [denies new onset balance issues] Objective:: Physical Exam General: Alert and oriented x3, no acute distress, pleasant and cooperative, [on room air] Lungs: Resps E/U, Symmetrical chest expansion, Eyes: PERRL Musculoskeletal: Flexion and extension of lumbar spine somewhat guarded secondary to pain, deep tendon reflexes normal, strength in upper and lower extremities [5/5], [abnormal gait noted] Neurological: speech clear, sociology adjunct instructor equal, no gross sensory deficits Assessment:: 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 I ensure that I have explained to the patient she will not be receiving any narcotic medication post implant. Patient is also medications for her current situation. Patient again refused to go to the ER. I will follow-up with the patient after her stimulator placement she is been instructed to call the office if she has any issues prior to her next appointment. Dr. Kohler has reviewed this note and agrees with this plan of care. This note was dictated using voice recognition software and may contain errors or omissions [facility] History I have reviewed the patient's past medical history: Yes Medical History: Reports:: Anxiety, Cancer, Depression, Gastroesophageal Reflux Disease(GERD), Hypertension, Seizures Denies:: Diabetes Mellitus Type 1, Diabetes Mellitus Type 2, MRSA *Have you ever received a pneumonia vaccine?: Yes *Have you received a flu vaccine this season?: Yes Other Medical History: Reports: Arthritis, Other. Denies: Blood Transfusion Reaction Laterality Cases: Bilateral: Other Other Surgeries: Yes: Appendectomy, Cardiac Catheterization, Cholecystectomy, Hysterectomy-Total, Hysterectomy-Partial, Other Amputation: No
== END ==
PROVIDERS: PCP Physician Assistant; Visit Provider Clinical Nurse Specialist Family Health
DX: M51.16 Intervertebral disc disorders with radiculopathy, lumbar region (principal); M46.1 Sacroiliitis, not elsewhere classified
CPT/HCPCS: 99212

== ENCOUNTER → 2019-06-02 11:02 | Outpatient (POV) | payer MEDICAID, SELFPAY ==
--- NOTE | 2019-06-02 13:17 | HMH.PAINSOAP ---
[facility] Pain Management SOAP Note Subjective:: Patient is a pleasant 43-year-old white female who presents today for follow-up after a spinal cord stimulator placement. 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 Patient says that she has gotten great relief with her spinal cord stimulator. She tried and failed all other conservative therapies including injections or medications. She is also currently on Suboxone. Patient is not considered a surgical candidate. Patient says that she is getting approximately 90 to 95% relief with the simulator. She is complaining, however, of her inability to work her control device for programming. She did ask that I contact the spinal cord stimulator pharmacy services representative while she was present in the clinic to troubleshoot the device. Otherwise, the patient does say she is getting relief with the stimulator. She rates her pain a 2 out of 10 today. Review of Systems General: No recent weight changes, no fever, no sleep disturbances Respiratory: No cough, no shortness of air, no recurring pulmonary infections Cardiovascular/peripheral vascular: No chest pain, no palpitations, no edema, no shortness of breath Gastrointestinal: No new onset incontinence, normal bowel movements reported Genitourinary: No new onset incontinence Musculoskeletal: Back pain, bilateral leg pain Psychiatric: Normal mood/affect Neurological: [Denies weakness in extremities], [denies balance issues] Objective:: Physical exam General: Alert and oriented x3, no acute distress, pleasant and cooperative, [on room air] Lungs: Respirations even and unlabored, symmetrical chest expansion Eyes: PERRL Musculoskeletal: Flexion and extension of lumbar spine somewhat guarded secondary to pain, deep tendon reflexes normal, strength in upper and lower extremities [5/5], slightly antalgic gait noted Neurological: Speech clear, cable systems installer equal, no gross sensory deficit Integumentary: Incision well approximated, sutures intact. No redness, no edema, no drainage noted to incision site Assessment:: Degenerative disc disease lumbar spine with lumbar radiculopathy symptoms, CRPS type II bilateral legs Plan:: We will see the patient back in the clinic in 1 week to reassess her symptoms. We will also remove her sutures in 1 week. Leroy the patient is doing well with the stimulator in place. Patient has been instructed to contact the clinic if she has any concerns before next appointment. Dr. Bux has reviewed this note and agrees with this plan of care. This note was dictated using voice recognition software and make contain errors or omissions. [facility] History I have reviewed the patient's past medical history: Yes Medical History: Reports:: Anxiety, Cancer, Depression, Gastroesophageal Reflux Disease(GERD), Hypertension, Seizures Denies:: Diabetes Mellitus Type 1, Diabetes Mellitus Type 2, MRSA *Have you ever received a pneumonia vaccine?: Yes *Have you received a flu vaccine this season?: Yes Other Medical History: Reports: Arthritis, Other. Denies: Blood Transfusion Reaction Laterality Cases: Bilateral: Other Other Surgeries: Yes: Appendectomy, Cardiac Catheterization, Cholecystectomy, Hysterectomy-Total, Hysterectomy-Partial, Other Amputation: No Fractures: Yes (FEMUR JAMES) - *Social History Educational Level: Completed High School Smoking Status: Current every day smoker Tobacco Type: cigarettes # Packs/Day (cigarettes): 1 #Yrs smoked (if former smoker): 35 Alcohol Intake: never Alcohol Intake Frequency:: other Substance Use Type: former substance user, marijuana, painkillers *Occupational Status:: other Housing: house Household Members: family *Travel in the last 8 weeks: None - Psychiatric History Pschychiatric History:: Reports:: Anxiety, Depression Family Hx:: Asthma, Cancer, Diabetes, Heart Attack, Hyperlipidemia, Hypertension, Stroke, Thyroid
--- NOTE | 2019-06-02 13:20 | P.CONS_ITS ---
[facility] Pain Management SOAP Note Subjective:: Patient is a pleasant 43-year-old white female who presents today for follow-up after a spinal cord stimulator placement. 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 Patient says that she has gotten great relief with her spinal cord stimulator. She tried and failed all other conservative therapies including injections or medications. She is also currently on Suboxone. Patient is not considered a surgical candidate. Patient says that she is getting approximately 90 to 95% relief with the simulator. She is complaining, however, of her inability to work her control device for programming. She did ask that I contact the spinal cord stimulator screening representative while she was present in the clinic to troubleshoot the device. Otherwise, the patient does say she is getting relief with the stimulator. She rates her pain a 2 out of 10 today. Review of Systems General: No recent weight changes, no fever, no sleep disturbances Respiratory: No cough, no shortness of air, no recurring pulmonary infections Cardiovascular/peripheral vascular: No chest pain, no palpitations, no edema, no shortness of breath Gastrointestinal: No new onset incontinence, normal bowel movements reported Genitourinary: No new onset incontinence Musculoskeletal: Back pain, bilateral leg pain Psychiatric: Normal mood/affect Neurological: [Denies weakness in extremities], [denies balance issues] Objective:: Physical exam General: Alert and oriented x3, no acute distress, pleasant and cooperative, [on room air] Lungs: Respirations even and unlabored, symmetrical chest expansion Eyes: PERRL Musculoskeletal: Flexion and extension of lumbar spine somewhat guarded secondary to pain, deep tendon reflexes normal, strength in upper and lower extremities [5/5], slightly antalgic gait noted Neurological: Speech clear, developer architect equal, no gross sensory deficit Integumentary: Incision well approximated, sutures intact. No redness, no edema, no drainage noted to incision site Assessment:: Degenerative disc disease lumbar spine with lumbar radiculopathy symptoms, CRPS type II bilateral legs Plan:: We will see the patient back in the clinic in 1 week to reassess her symptoms. We will also remove her sutures in 1 week. Leroy the patient is doing well with the stimulator in place. Patient has been instructed to contact the clinic if she has any concerns before next appointment. Dr. Bux has reviewed this note and agrees with this plan of care. This note was dictated using voice recognition software and make contain errors or omissions. [facility] History I have reviewed the patient's past medical history: Yes Medical History: Reports:: Anxiety, Cancer, Depression, Gastroesophageal Reflux Disease(GERD), Hypertension, Seizures Denies:: Diabetes Mellitus Type 1, Diabetes Mellitus Type 2, MRSA *Have you ever received a pneumonia vaccine?: Yes *Have you received a flu vaccine this season?: Yes Other Medical History: Reports: Arthritis, Other. Denies: Blood Transfusion Reaction Laterality Cases: Bilateral: Other Other Surgeries: Yes: Appendectomy, Cardiac Catheterization, Cholecystectomy, Hysterectomy-Total, Hysterectomy-Partial, Other Amputation: No Fractures: Yes (FEMUR JAMES) - *Social History Educational Level: Completed High School Smoking Status: Current every day smoker Tobacco Type: cigarettes # Packs/Day (cigarettes): 1 #Yrs smoked (if former smoker): 35 Alcohol Intake: never Alcohol Intake Frequency:: oth
== END ==
PROVIDERS: PCP Emergency Medicine; Visit Provider Clinical Nurse Specialist Family Health
DX: M51.16 Intervertebral disc disorders with radiculopathy, lumbar region (principal); G57.73 Causalgia of bilateral lower limbs

== ENCOUNTER → 2019-06-13 11:01 | Outpatient (POV) | payer OTHER, SELFPAY ==
[2019-06-13 11:41] VITALS: BP 152/98; PULSE 87; RESP 18; O2SAT 98; BMI 39.9
--- NOTE | 2019-06-14 09:44 | HMH.PAINSOAP ---
[facility] Pain Management SOAP Note Subjective:: Patient is a pleasant 43-year-old white female who presents today for follow-up after neurostimulator implant. Patient had her stitches removed the incisions are well approximated with no sign symptoms of infection she states that her pain is controlled and her back the only pain that she has at this time is in her bilateral knees she rates the pain a 4 out of 10. Patient and I discussed that she may need adjustments for her neurostimulator in the future. But overall at this time she is doing well ROS General: no recent weight change, no fever, no sleep disturbances Respiratory: no cough, no shortness of air, no recurring pulmonary infections Cardiovascular/Peripheral Vascular: No chest pain, No palpitations, no edema, no shortness of breath. Gastrointestinal: no new onset incontinence, normal bowel movements reported Genitourinary: no new onset incontinence Musculoskeletal: Bilateral knee pain Psychiatric: normal mood/ affect Neurological: [denies new onset weakness in extremities], [denies new onset balance issues] Objective:: Physical Exam General: Alert and oriented x3, no acute distress, pleasant and cooperative, [on room air] Lungs: Resps E/U, Symmetrical chest expansion, Eyes: PERRL Musculoskeletal: Flexion and extension of lumbar spine somewhat guarded secondary to pain, deep tendon reflexes normal, strength in upper and lower extremities [5/5], [abnormal gait noted] decreased range of motion bilateral knees Neurological: speech clear, supply chain engineer equal, no gross sensory deficits Assessment:: Bilateral knee pain, osteoarthritis, degenerative disc disease lumbar spine with lumbar radiculopathy CRPS type II bilateral lower extremities Plan:: We will schedule the patient for bilateral intra-articular knee injections. I will follow-up with the patient after this reassess her symptoms at that time she is been instructed to call the office if she has any issues prior to her next appointment. Dr. Kohler has reviewed this note and agrees with this plan of care. This note was dictated using voice recognition software and may contain errors or omissions [facility] History I have reviewed the patient's past medical history: Yes Medical History: Reports:: Anxiety, Cancer, Depression, Gastroesophageal Reflux Disease(GERD), Hypertension, Seizures Denies:: Diabetes Mellitus Type 1, Diabetes Mellitus Type 2, MRSA *Have you ever received a pneumonia vaccine?: Yes *Have you received a flu vaccine this season?: Yes Other Medical History: Reports: Arthritis, Other. Denies: Blood Transfusion Reaction Laterality Cases: Bilateral: Other Other Surgeries: Yes: Appendectomy, Cardiac Catheterization, Cholecystectomy, Hysterectomy-Total, Hysterectomy-Partial, Other Amputation: No Fractures: Yes (FEMUR JAMES) - *Social History Smoking Status: Current every day smoker Tobacco Type: cigarettes # Packs/Day (cigarettes): 1 #Yrs smoked (if former smoker): 35 Alcohol Intake: never Alcohol Intake Frequency:: other Substance Use Type: former substance user, marijuana, painkillers *Occupational Status:: other Housing: house Household Members: family *Travel in the last 8 weeks: None - Psychiatric History Pschychiatric History:: Reports:: Anxiety, Depression Family Hx:: Asthma, Cancer, Diabetes, Heart Attack, Hyperlipidemia, Hypertension, Stroke, Thyroid Disorder, Coronary Artery Disease
--- NOTE | 2019-06-14 09:47 | P.CONS_ITS ---
[facility] Pain Management SOAP Note Subjective:: Patient is a pleasant 43-year-old white female who presents today for follow-up after neurostimulator implant. Patient had her stitches removed the incisions are well approximated with no sign symptoms of infection she states that her pain is controlled and her back the only pain that she has at this time is in her bilateral knees she rates the pain a 4 out of 10. Patient and I discussed that she may need adjustments for her neurostimulator in the future. But overall at this time she is doing well ROS General: no recent weight change, no fever, no sleep disturbances Respiratory: no cough, no shortness of air, no recurring pulmonary infections Cardiovascular/Peripheral Vascular: No chest pain, No palpitations, no edema, no shortness of breath. Gastrointestinal: no new onset incontinence, normal bowel movements reported Genitourinary: no new onset incontinence Musculoskeletal: Bilateral knee pain Psychiatric: normal mood/ affect Neurological: [denies new onset weakness in extremities], [denies new onset balance issues] Objective:: Physical Exam General: Alert and oriented x3, no acute distress, pleasant and cooperative, [on room air] Lungs: Resps E/U, Symmetrical chest expansion, Eyes: PERRL Musculoskeletal: Flexion and extension of lumbar spine somewhat guarded secondary to pain, deep tendon reflexes normal, strength in upper and lower extremities [5/5], [abnormal gait noted] decreased range of motion bilateral knees Neurological: speech clear, assorter equal, no gross sensory deficits Assessment:: Bilateral knee pain, osteoarthritis, degenerative disc disease lumbar spine with lumbar radiculopathy CRPS type II bilateral lower extremities Plan:: We will schedule the patient for bilateral intra-articular knee injections. I will follow-up with the patient after this reassess her symptoms at that time she is been instructed to call the office if she has any issues prior to her next appointment. Dr. Kohler has reviewed this note and agrees with this plan of care. This note was dictated using voice recognition software and may contain errors or omissions [facility] History I have reviewed the patient's past medical history: Yes Medical History: Reports:: Anxiety, Cancer, Depression, Gastroesophageal Reflux Disease(GERD), Hypertension, Seizures Denies:: Diabetes Mellitus Type 1, Diabetes Mellitus Type 2, MRSA *Have you ever received a pneumonia vaccine?: Yes *Have you received a flu vaccine this season?: Yes Other Medical History: Reports: Arthritis, Other. Denies: Blood Transfusion Reaction Laterality Cases: Bilateral: Other Other Surgeries: Yes: Appendectomy, Cardiac Catheterization, Cholecystectomy, Hysterectomy-Total, Hysterectomy-Partial, Other Amputation: No Fractures: Yes (FEMUR JAMES) - *Social History Smoking Status: Current every day smoker Tobacco Type: cigarettes # Packs/Day (cigarettes): 1 #Yrs smoked (if former smoker): 35 Alcohol Intake: never Alcohol Intake Frequency:: other Substance Use Type: former substance user, marijuana, painkillers *Occupational Status:: other Housing: house Household Members: family *Travel in the last 8 weeks: None - Psychiatric History Pschychiatric History:: Reports:: Anxiety, Depression Family Hx:: Asthma, Cancer, Diabetes, Heart Attack, Hyperlipidemia, Hypertension, Stroke, Thyroid Disorder, Coronary Artery Disease
== END ==
PROVIDERS: PCP Physician Assistant; Visit Provider Clinical Nurse Specialist Family Health
DX: M25.561 Pain in right knee (principal); M25.562 Pain in left knee; M51.16 Intervertebral disc disorders with radiculopathy, lumbar region; M19.90 Unspecified osteoarthritis, unspecified site; G57.73 Causalgia of bilateral lower limbs
CPT/HCPCS: 99213

== ENCOUNTER → 2019-08-01 13:38 | Outpatient (POV) | payer OTHER, SELFPAY ==
[2019-08-01 13:50] VITALS: BP 150/83; PULSE 67; RESP 18; O2SAT 99; BMI 40.8
--- NOTE | 2019-08-01 14:16 | HMH.PAINSOAP ---
[facility] Pain Management SOAP Note Subjective:: Patient is a pleasant 43-year-old white female who presents today for follow-up after bilateral knee injections. Patient got over 80% relief of her symptomology however her pain is beginning to return. Of note patient does have a neurostimulator in place however due to full system failure we are unable to charge it or read it. Patient needs a new system. Patient had a good trial with 80 to 90% relief of her symptomology. However she is unable to charge her battery and we are unable to read reprogram her. ROS General: no recent weight change, no fever, no sleep disturbances Respiratory: no cough, no shortness of air, no recurring pulmonary infections Cardiovascular/Peripheral Vascular: No chest pain, No palpitations, no edema, no shortness of breath. Gastrointestinal: no new onset incontinence, normal bowel movements reported Genitourinary: no new onset incontinence Musculoskeletal: Back pain, leg pain Psychiatric: normal mood/ affect Neurological: [denies new onset weakness in extremities], [denies new onset balance issues] Objective:: Physical Exam General: Alert and oriented x3, no acute distress, pleasant and cooperative, [on room air] Lungs: Resps E/U, Symmetrical chest expansion, Eyes: PERRL Musculoskeletal: Flexion and extension of lumbar spine somewhat guarded secondary to pain, deep tendon reflexes normal, strength in upper and lower extremities [5/5], [abnormal gait noted] Neurological: speech clear, body trimmer upholsterer equal, no gross sensory deficits Assessment:: Knee pain bilaterally, osteoarthritis bilateral knee, CRPS type II, back pain degenerative disc disease Plan:: We will schedule the patient for a bilateral knee injection and also work on getting her a nonrechargeable [employer] neurostimulator. I will follow-up with the patient after this reassess her symptoms at that time she is been instructed to call the office if she has any issues prior to her next appointment. Dr. Kohler has reviewed this note and agrees with this plan of care. This note was dictated using voice recognition software and may contain errors or omissions [facility] History I have reviewed the patient's past medical history: Yes Medical History: Reports:: Anxiety, Cancer (cervical), Carotid Stenosis, Congestive Heart Failure, Depression, Gastroesophageal Reflux Disease(GERD), Hypertension, Seizures Denies:: Diabetes Mellitus Type 1, Diabetes Mellitus Type 2, MRSA *Have you ever received a pneumonia vaccine?: Yes *Have you received a flu vaccine this season?: Yes Other Medical History: Reports: Arthritis, Hormone Therapy, Other. Denies: Blood Transfusion Reaction Laterality Cases: Left: Arthroscopy Shoulder, Bilateral: Other Other Surgeries: Yes: Appendectomy, Cardiac Catheterization, Cholecystectomy, Hysterectomy-Total, Hysterectomy-Partial, Other Amputation: No Fractures: Yes - *Social History Smoking Status: Current every day smoker Tobacco Type: cigarettes # Packs/Day (cigarettes): 40 #Yrs smoked (if former smoker): 35 Alcohol Intake: never Alcohol Intake Frequency:: other Substance Use Type: former substance user, marijuana, painkillers *Occupational Status:: other Housing: house Household Members: spouse, family *Travel in the last 8 weeks: None - Psychiatric History Pschychiatric History:: Reports:: Anxiety, Depression Family Hx:: Asthma, Cancer, Diabetes, Heart Attack, Hyperlipidemia, Hypertension, Stroke, Thyroid Disorder, Coronary Artery Disease
== END ==
PROVIDERS: PCP Emergency Medicine; Visit Provider Clinical Nurse Specialist Family Health
DX: M17.0 Bilateral primary osteoarthritis of knee (principal)
CPT/HCPCS: 99212

== ENCOUNTER → 2019-09-08 09:55 | Outpatient (POV) | payer OTHER, SELFPAY ==
[2019-09-08 10:08] VITALS: BP 138/84; PULSE 73; RESP 18; O2SAT 99; BMI 40.8
--- NOTE | 2019-09-08 10:20 | HMH.PAINSOAP ---
[facility] Pain Management SOAP Note Subjective:: Patient is a pleasant 43-year-old white female who presents today for follow-up. She is treated for pain secondary to lumbar degenerative disc disease along with lumbar radiculopathy symptoms. Patient failed conservative therapies and injections, oral medications, and was not considered a surgical candidate. She did undergo a new [employer] spinal cord stimulator, however, she did have a failure in the system. Unfortunately, the he did file chapter 11 and there was no support or service of the spinal cord stimulator system. The patient was replaced with a [employer] spinal cord stimulator. Overall the patient says she is doing well with her stimulator. She was planning to meet the spinal cord stimulator [employer] outside sales representative today, however, he did have to leave early Thursday unable to meet with the patient. He does plan to meet with the patient at the next visit. Patient rates her pain an 8 out of 10 today. She says she is still having some lower extremity pain. She would like to discuss reprogramming with the [employer] outside sales representative at the next visit. She is continuing with anti-inflammatories and a home stretching program. Review of Systems General: No recent weight changes, no fever, no sleep disturbances Respiratory: No cough, no shortness of air, no recurring pulmonary infections Cardiovascular/peripheral vascular: No chest pain, no palpitations, no edema, no shortness of breath Gastrointestinal: No new onset incontinence, normal bowel movements reported Genitourinary: No new onset incontinence Musculoskeletal: Low back pain, bilateral leg pain Psychiatric: Normal mood/affect Neurological: [Denies weakness in extremities], [denies balance issues] Objective:: Physical exam General: Alert and oriented x3, no acute distress, pleasant and cooperative, [on room air] Lungs: Respirations even and unlabored, symmetrical chest expansion Eyes: PERRL Musculoskeletal: Flexion and extension of lumbar spine somewhat guarded secondary to pain, deep tendon reflexes normal, strength in upper and lower extremities [5/5], [abnormal gait noted] Neurological: Speech clear, veneer clipper helper equal, no gross sensory deficit Assessment:: Degenerative disc disease lumbar spine with lumbar radiculopathy symptoms Plan:: We will plan to see the patient back in the clinic in 2 weeks to remove her sutures. Her incision is well approximated with sutures intact. She does not have any redness, drainage, or edema noted to site. She will continue with anti-inflammatories and a home stretching program. We will see her back in clinic in 2 weeks to reassess her symptoms. She has been instructed to contact clinic if she has any concerns before her next appointment. Dr. Kohler has reviewed this note and agrees with this plan of care. This note was dictated using voice recognition software and make contain errors or omissions. [facility] History I have reviewed the patient's past medical history: Yes Medical History: Reports:: Anxiety, Cancer (cervical, brain tumor), Carotid Stenosis, Congestive Heart Failure, Depression, Gastroesophageal Reflux Disease(GERD), Hypertension, Seizures Denies:: Diabetes Mellitus Type 1, Diabetes Mellitus Type 2, Internal Pacemaker, MRSA *Have you ever received a pneumonia vaccine?: Yes *Have you received a flu vaccine this season?: Yes Other Medical History: Reports: Arthritis, Hormone Therapy, Other. Denies: Blood Transfusion Reaction Laterality Cases: Left: Arthroscopy Shoulder, Bilateral: Other Other Surgeries: Yes: Appendectomy, Cardiac Catheterization, Cholecystectomy, Hysterectomy-Total, Hysterectomy-Partial, Other. No: Pacemaker Amputation: No Fractures: Yes (femur) - *Social History Smoking Status: Current every day smoker Tobacco Type: cigarettes # Packs/Day (cigarettes): 2 #Yrs smoked (if former smoker): 35 Alcohol Intake: never Alcohol Intake Frequency:: other Substance Use Type: former subs
== END ==
PROVIDERS: PCP Emergency Medicine; Visit Provider Clinical Nurse Specialist Family Health
DX: Z09 Encounter for follow-up examination after completed treatment for conditions other than malignant neoplasm (principal); M51.16 Intervertebral disc disorders with radiculopathy, lumbar region
CPT/HCPCS: 99212

== ENCOUNTER → 2019-09-27 09:24 | Outpatient (POV) | payer OTHER, SELFPAY ==
[2019-09-27 09:50] VITALS: BP 110/86; PULSE 83; RESP 18; O2SAT 99; BMI 40.8
--- NOTE | 2019-09-27 10:00 | HMH.PAINSOAP ---
[facility] Pain Management SOAP Note Subjective:: Patient is a pleasant 43-year-old white female who presents today for reprogramming of her new [employer] stimulator. Patient was getting relief until she fell into a wall. Patient does have quite a significant bruise on her lower left buttock. Patient rates her pain a 6 out of 10 today. Patient is having difficulty walking however this is probably secondary to her fall. Patient and I discussed the need to take it easy for the next couple weeks she will be reprogrammed today and in 2 weeks we will have her re-reprogrammed again. Patient stitches have been removed her incisions are well approximated there is no sign symptoms of infection. ROS General: no recent weight change, no fever, no sleep disturbances Respiratory: no cough, no shortness of air, no recurring pulmonary infections Cardiovascular/Peripheral Vascular: No chest pain, No palpitations, no edema, no shortness of breath. Gastrointestinal: no new onset incontinence, normal bowel movements reported Genitourinary: no new onset incontinence Musculoskeletal: Back pain, leg pain, hip pain Psychiatric: normal mood/ affect, Neurological: [denies new onset weakness in extremities], [denies new onset balance issues] Objective:: Physical Exam General: Alert and oriented x3, no acute distress, pleasant and cooperative, [on room air] Lungs: Resps E/U, Symmetrical chest expansion, Eyes: PERRL Musculoskeletal: Flexion and extension of lumbar spine somewhat guarded secondary to pain, deep tendon reflexes normal, strength in upper and lower extremities [5/5], [abnormal gait noted] Neurological: speech clear, centrifugal screen tender equal, no gross sensory deficits Assessment:: 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 Patient is to call us. Dr. Kohler has reviewed this note and agrees with this plan of care. This note was dictated using voice recognition software and may contain errors or omissions [facility] History I have reviewed the patient's past medical history: Yes Medical History: Reports:: Anxiety, Cancer (cervical, brain tumor), Carotid Stenosis, Congestive Heart Failure, Depression, Gastroesophageal Reflux Disease(GERD), Hypertension, Seizures Denies:: Diabetes Mellitus Type 1, Diabetes Mellitus Type 2, Internal Pacemaker, MRSA *Have you ever received a pneumonia vaccine?: Yes *Have you received a flu vaccine this season?: Yes Other Medical History: Reports: Arthritis, Hormone Therapy, Other. Denies: Blood Transfusion Reaction Laterality Cases: Left: Arthroscopy Shoulder, Bilateral: Other Other Surgeries: Yes: Appendectomy, Cardiac Catheterization, Cholecystectomy, Hysterectomy-Total, Hysterectomy-Partial, Other. No: Pacemaker Amputation: No Fractures: Yes (femur) - *Social History Smoking Status: Current every day smoker Tobacco Type: cigarettes # Packs/Day (cigarettes): 2 #Yrs smoked (if former smoker): 35 Alcohol Intake: never Alcohol Intake Frequency:: other Substance Use Type: former substance user, marijuana *Occupational Status:: other Housing: house Household Members: spouse, family *Travel in the last 8 weeks: None - Psychiatric History Pschychiatric History:: Reports:: Anxiety, Depression Family Hx:: Asthma, Cancer, Diabetes, Heart Attack, Hyperlipidemia, Hypertension, Stroke, Thyroid Disorder, Coronary Artery Disease
== END ==
PROVIDERS: PCP Emergency Medicine; Visit Provider Clinical Nurse Specialist Family Health
DX: M51.16 Intervertebral disc disorders with radiculopathy, lumbar region (principal); S30.0XXA Contusion of lower back and pelvis, initial encounter; W19.XXXA Unspecified fall, initial encounter
CPT/HCPCS: 99213

== ENCOUNTER → 2019-11-01 10:55 | Outpatient (POV) | payer OTHER, SELFPAY ==
[2019-11-01 11:04] VITALS: BP 150/95; PULSE 72; RESP 18; O2SAT 98; BMI 39.9
--- NOTE | 2019-11-01 12:33 | HMH.PAINSOAP ---
[facility] Pain Management SOAP Note Subjective:: She is pleasant 44-year-old white female who presents today for follow-up. Patient has recently been decreased on her gabapentin by her primary care physician. She states that she was called for a pill count however she was visiting her mother in [facility] and was not given the opportunity to bring her medicine in. Patient and I discussed us taking over this prescription. We will do so. Patient has a signed contract with us. She is in a Suboxone clinic and they are aware of her gabapentin use. Patient understands that she may get drug screen along with potential pill counts. We encouraged her to keep her pills on her when traveling long distances so she can complete pill counts at other pharmacies if necessary. Patient has had an increase in pain since going from gabapentin 800 mg 1 p.o. 4 times daily to 800 mg 1 p.o. daily abruptly. ROS General: no recent weight change, no fever, no sleep disturbances Respiratory: no cough, no shortness of air, no recurring pulmonary infections Cardiovascular/Peripheral Vascular: No chest pain, No palpitations, no edema, no shortness of breath. Gastrointestinal: no new onset incontinence, normal bowel movements reported Genitourinary: no new onset incontinence Musculoskeletal: Back pain, leg pain Psychiatric: normal mood/ affect Neurological: [denies new onset weakness in extremities], [denies new onset balance issues] Objective:: Physical Exam General: Alert and oriented x3, no acute distress, pleasant and cooperative, [on room air] Lungs: Resps E/U, Symmetrical chest expansion, Eyes: PERRL Musculoskeletal: Flexion and extension of lumbar spine somewhat guarded secondary to pain, deep tendon reflexes normal, strength in upper and lower extremities [5/5], [abnormal gait noted] Neurological: speech clear, pump servicer equal, no gross sensory deficits Assessment:: Degenerative disc disease lumbar spine with lumbar radiculopathy, CRPS type II Plan:: We will start the patient on gabapentin 800 mg 1 p.o. 4 times daily. We will do a telehealth visit in 1 month reassess her at that time she has been instructed to call the office if she has any issues prior to her next appointment. Dr. Kohler has reviewed this note and agrees with this plan of care. This note was dictated using voice recognition software and may contain errors or omissions [facility] History I have reviewed the patient's past medical history: Yes Medical History: Reports:: Anxiety, Cancer (cervical, brain tumor), Carotid Stenosis, Congestive Heart Failure, Depression, Gastroesophageal Reflux Disease(GERD), Hypertension, Seizures Denies:: Diabetes Mellitus Type 1, Diabetes Mellitus Type 2, Internal Pacemaker, MRSA *Have you ever received a pneumonia vaccine?: Yes *Have you received a flu vaccine this season?: Yes Other Medical History: Reports: Arthritis, Hormone Therapy, Other. Denies: Blood Transfusion Reaction Laterality Cases: Left: Arthroscopy Shoulder, Bilateral: Other Other Surgeries: Yes: Appendectomy, Cardiac Catheterization, Cholecystectomy, Hysterectomy-Total, Hysterectomy-Partial, Other. No: Pacemaker Amputation: No Fractures: Yes (femur) - *Social History Smoking Status: Current every day smoker Tobacco Type: cigarettes # Packs/Day (cigarettes): 2 #Yrs smoked (if former smoker): 35 Alcohol Intake: never Alcohol Intake Frequency:: other Substance Use Type: former substance user, marijuana *Occupational Status:: other Housing: house Household Members: spouse, family *Travel in the last 8 weeks: None - Psychiatric History Pschychiatric History:: Reports:: Anxiety, Depression Family Hx:: Asthma, Cancer, Diabetes, Heart Attack, Hyperlipidemia, Hypertension, Stroke, Thyroid Disorder, Coronary Artery Disease
== END ==
PROVIDERS: PCP Emergency Medicine; Visit Provider Clinical Nurse Specialist Family Health
DX: M51.16 Intervertebral disc disorders with radiculopathy, lumbar region (principal)
CPT/HCPCS: 99212

== ENCOUNTER → 2020-01-09 11:11 | Outpatient (POV) | payer OTHER, SELFPAY ==
--- NOTE | 2020-01-09 13:18 | XR_ITS ---
PROCEDURE: XR SACROILIAC JOINT BI MIN 3V CLINICAL INDICATION: HIP PAIN COMPARISON: No exams were available for comparison FINDINGS: The SI joints have an unremarkable appearance. No significant degenerative change, effusion, or lytic lesion evident. There is an epidural stimulator device present. The distal aspect is not imaged IMPRESSION: Negative SI joints Dictated by: Shimon Trinidad MD 01/09/2020 13:56 Electronically signed by Shimon Trinidad MD in [place] 01/09/2020 13:56
--- NOTE | 2020-01-09 13:18 | XR_ITS ---
PROCEDURE: XR HIP LT 2-3V W/PELVIS CLINICAL INDICATION: HIP PAIN COMPARISON: [id number] HIP LT 2-3V W/PELVIS IF PERFOR from 05/27/2017 FINDINGS: Left femur intramedullary shahla is present. There is an old mid to distal femur fracture. There is good alignment. No acute fracture or dislocation. On the abduction ule view of the hip there is a calcific density overlying the femoral head somewhat medially and could be due to an intra-articular loose body. This measures approximately [address] may confirm if clinically desired. This may be inferior on the AP view. IMPRESSION: 1. Prior ORIF of the left femur with old healed distal femur fracture. 2. Possible intra-articular loose body which could be confirmed with CT if clinically warranted Dictated by: Shimon Trinidad MD 01/09/2020 13:53 Electronically signed by Shimon Trinidad MD in [place] 01/09/2020 13:53
[2020-01-09 13:27] VITALS: BP 140/80; PULSE 85; RESP 18; TEMP 36.6; O2SAT 98; BMI 35.4
--- NOTE | 2020-01-10 08:24 | P.CONS_ITS ---
[facility] Pain Management SOAP Note Subjective:: She is a pleasant 44-year-old white female who presents today for follow-up. Patient has a neurostimulator and has done well with this however she is having a lot of left hip pain. She had her femur broken and repaired with a shahla several years ago. She is recently fallen and has hurt her hip. She rates her pain a 7 out of 10 she is in obvious discomfort. She is currently on Suboxone. Patient is helping to take care of her mother. We will send her for x-rays to help determine pathology. Patient will not does not need any reprogramming of her neurostimulator today. ROS General: no recent weight change, no fever, no sleep disturbances Respiratory: no cough, no shortness of air, no recurring pulmonary infections Cardiovascular/Peripheral Vascular: No chest pain, No palpitations, no edema, no shortness of breath. Gastrointestinal: no new onset incontinence, normal bowel movements reported Genitourinary: no new onset incontinence Musculoskeletal: Back pain, leg pain, left hip pain Psychiatric: normal mood/ affect, Neurological: [denies new onset weakness in extremities], [denies new onset balance issues] Objective:: Physical Exam General: Alert and oriented x3, no acute distress, pleasant and cooperative, [on room air] Lungs: Resps E/U, Symmetrical chest expansion, Eyes: PERRL Musculoskeletal: Flexion and extension of lumbar spine somewhat guarded secondary to pain, deep tendon reflexes normal, strength in upper and lower extremities [5/5], [abnormal gait noted] Neurological: speech clear, mechanical research engineer equal, no gross sensory deficits Assessment:: Left hip pain, degenerative disc disease lumbar spine lumbar radiculopathy Plan:: Noted on her x-ray is a potential foreign body in her intra-articular space in her hip. We will send this report along with the patient to [facility] for an evaluation. Patient states she is to call the office if she has any issues prior to her next appointment. Dr. Kohler has reviewed this note and agrees with this plan of care. This note was dictated using voice recognition software and may contain errors or omissions [facility] History I have reviewed the patient's past medical history: Yes Medical History: Reports:: Anxiety, Cancer (cervical, brain tumor), Carotid Stenosis, Congestive Heart Failure, Depression, Gastroesophageal Reflux Disease(GERD), Hypertension, Seizures Denies:: Diabetes Mellitus Type 1, Diabetes Mellitus Type 2, Internal Pacemaker, MRSA *Have you ever received a pneumonia vaccine?: Yes *Have you received a flu vaccine this season?: Yes Other Medical History: Reports: Arthritis, Hormone Therapy, Other. Denies: Blood Transfusion Reaction Laterality Cases: Left: Arthroscopy Shoulder, Bilateral: Other Other Surgeries: Yes: Appendectomy, Cardiac Catheterization, Cholecystectomy, Hysterectomy-Total, Hysterectomy-Partial, Other. No: Pacemaker Amputation: No Fractures: Yes (femur) - *Social History Smoking Status: Current every day smoker Tobacco Type: cigarettes # Packs/Day (cigarettes): 2 #Yrs smoked (if former smoker): 35 Alcohol Intake: never Alcohol Intake Frequency:: other Substance Use Type: former substance user, marijuana *Occupational Status:: other Housing: house Household Members: spouse, family *Travel in the last 8 weeks: None - Psychiatric History Pschychiatric History:: Reports:: Anxiety, Depression Family Hx:: Asthma, Cancer, Diabetes, Heart Attack, Hyperlipidemia, Hypertension, Stroke, Thyroid Disorder, Coronary Artery Disease
--- NOTE | 2020-01-30 15:30 | PC.NURSE ---
Gabapentin 800mg qid with 2 refills [facility] per provider order
== END ==
PROVIDERS: PCP Physician Assistant; Visit Provider Clinical Nurse Specialist Family Health
DX: M25.552 Pain in left hip (principal); M51.16 Intervertebral disc disorders with radiculopathy, lumbar region
CPT/HCPCS: 72202; 73502; 99212

== ENCOUNTER → 2020-01-25 13:41 | Outpatient (CLI) | payer OTHER, SELFPAY ==
--- NOTE | 2020-01-25 13:41 | CT_ITS ---
PROCEDURE: CT HEAD/BRAIN WO CON CLINICAL INDICATION: frequent falls, LUE numbness, facial drooping Right-sided facial drooping with left upper extremity numbness COMPARISON: HDWO CT HEAD W/O CONTRAST from 03/23/2017 TECHNIQUE: Axial images obtained. All CT scans at the facility use one or more dose reduction, viz: automated exposure control, ma/kV adjustment per patient size (including targeted exams where dose is matched to indication, i.e. head), or iterative reconstruction technique. FINDINGS: No midline shift, mass effect, intracranial hemorrhage, hydrocephalus, or extra-axial fluid collection is evident. There is an area coarse calcification in the right parietal lobe posteriorly with some surrounding slight increased density. Overall, the region measures approximately 7 mm with a calcification measuring approximately 4 mm. This could be due to a small meningioma. MRI of the brain without and with contrast may confirm. No edema or mass effect is evident. The calvarium has an unremarkable appearance. No mastoid effusion. No sinus air-fluid level. IMPRESSION: No acute intracranial finding. Small hyperdense lesion of the right parietal lobe with calcification which may be due to small meningioma. This may be slightly more prominent compared to the previous exam. MRI of the brain without and with contrast may provide further evaluation. No mass effect Dictated by: Shimon Trinidad MD 01/25/2020 16:46 Electronically signed by Shimon Trinidad MD in [place] 01/25/2020 16:46
== END ==
PROVIDERS: PCP Physician Assistant; Visit Provider Physician Assistant
DX: R29.810 Facial weakness (principal); R20.0 Anesthesia of skin; R29.6 Repeated falls
CPT/HCPCS: 70450

== ENCOUNTER → 2020-02-14 13:23 | Outpatient (CLI) | payer OTHER, SELFPAY ==
--- NOTE | 2020-02-14 13:23 | CT_ITS ---
PROCEDURE: CT HIP LT WO CON CLINICAL HISTORY: Possible intra-articular loose body Left hip pain and numbness with abnormal radiograph COMPARISON: ABDPELW/[id number] CT ABD PELVIS W/O CONTRAST from 11/03/2016 XR HIP LT 2-3V W/PELVIS from 01/09/2020 TECHNIQUE: Axial images obtained with sagittal and coronal reformats. All CT scans at the facility use one or more dose reduction, viz: automated exposure control, ma/kV adjustment per patient size (including targeted exams where dose is matched to indication, i.e. head), or iterative reconstruction technique. FINDINGS: Mild osteoarthritic changes are present involving the left SI joint. There is an intramedullary shahla within the left femur no acute fracture or dislocation is evident. There are mild osteoarthritic changes of the left hip with slight decrease in the joint space superiorly. There is an intra-articular loose body within the left hip joint just slightly posterior to the central aspect of the hip joint. This is oval in nature and measures approximately 7 mm by 3 mm. This is just inferior to the fovea of the femoral head. IMPRESSION: 1. There is a small intra-articular calcific loose body within the left hip joint at 7 x 3 mm 2. Minimal osteoarthritic change of the left hip and L left SI joint. Dictated by: Shimon Trinidad MD 02/15/2020 12:01 Electronically signed by Shimon Trinidad MD in [place] 02/15/2020 12:01
== END ==
PROVIDERS: PCP Physician Assistant; Visit Provider Orthopaedic Surgery
DX: M25.552 Pain in left hip (principal)
CPT/HCPCS: 73700

== ENCOUNTER → 2020-03-26 10:14 | Outpatient (POV) | payer OTHER, SELFPAY ==
[2020-03-26 10:39] VITALS: BP 142/78; PULSE 77; RESP 18; O2SAT 98; BMI 34.0
--- NOTE | 2020-03-26 11:30 | HMH.PAINSOAP ---
[facility] Pain Management SOAP Note Subjective:: She is a pleasant 44-year-old white female who presents today for follow-up. Patient has a neurostimulator and is done well for her she is using it every day. She is having a lot of pain in her left hip. Patient had a foreign body in the space and was sent to [place] for a consult with her surgeon. She still awaiting this. She is currently on Suboxone. She rates her pain a 6 out of 10. She states that she is here today to discuss knee injections. She has had knee injections in the past with good relief. She states that her knees are currently spongy crunchy . ROS General: no recent weight change, no fever, no sleep disturbances Respiratory: no cough, no shortness of air, no recurring pulmonary infections Cardiovascular/Peripheral Vascular: No chest pain, No palpitations, no edema, no shortness of breath. Gastrointestinal: no new onset incontinence, normal bowel movements reported Genitourinary: no new onset incontinence Musculoskeletal: Left hip pain, knee pain Psychiatric: normal mood/ affect Neurological: [denies new onset weakness in extremities], [denies new onset balance issues] Objective:: Physical Exam General: Alert and oriented x3, no acute distress, pleasant and cooperative, [on room air] Lungs: Resps E/U, Symmetrical chest expansion, Eyes: PERRL Musculoskeletal: Flexion and extension of lumbar spine somewhat guarded secondary to pain, deep tendon reflexes normal, strength in upper and lower extremities [5/5], [abnormal gait noted] Neurological: speech clear, first cook equal, no gross sensory deficits Assessment:: Osteoarthritis bilateral knees, left hip pain Plan:: We will schedule the patient for bilateral knee injections. Patient's been instructed to call the office if she has any issues prior to her next appointment. She is going to get notes from [place] for our office. Dr. Kohler has reviewed this note and agrees with this plan of care. This note was dictated using voice recognition software and may contain errors or omissions [facility] History I have reviewed the patient's past medical history: Yes Medical History: Reports:: Anxiety, Cancer, Carotid Stenosis, Congestive Heart Failure, Depression, Gastroesophageal Reflux Disease(GERD), Hyperlipidemia, Hypertension, Seizures Denies:: Diabetes Mellitus Type 1, Diabetes Mellitus Type 2, Internal Pacemaker, MRSA *Have you ever received a pneumonia vaccine?: Yes *Have you received a flu vaccine this season?: Yes Other Medical History: Reports: Arthritis, Fibromyalgia, Hormone Therapy, Other. Denies: Blood Transfusion Reaction Laterality Cases: Left: Arthroscopy Shoulder, Bilateral: Other Other Surgeries: Yes: Appendectomy, Cardiac Catheterization, Cholecystectomy, Hysterectomy-Total, Hysterectomy-Partial, Other. No: Pacemaker Amputation: No Fractures: Yes (femur) - *Social History Smoking Status: Current every day smoker Tobacco Type: cigarettes # Packs/Day (cigarettes): 2 #Yrs smoked (if former smoker): 35 Alcohol Intake: never Alcohol Intake Frequency:: other Substance Use Type: former substance user, marijuana *Occupational Status:: other Housing: house Household Members: spouse, family *Travel in the last 8 weeks: None - Psychiatric History Pschychiatric History:: Reports:: Anxiety, Depression Family Hx:: Asthma, Cancer, Diabetes, Heart Attack, Hyperlipidemia, Hypertension, Stroke, Thyroid Disorder, Coronary Artery Disease
== END ==
PROVIDERS: PCP Emergency Medicine; Visit Provider Clinical Nurse Specialist Family Health
DX: M17.0 Bilateral primary osteoarthritis of knee (principal); M25.552 Pain in left hip
CPT/HCPCS: 99212

== ENCOUNTER 2020-04-06 13:49 | Day surgery (SDC) | payer OTHER, SELFPAY ==
[2020-04-06 14:19] VITALS: BP 153/80; PULSE 62; RESP 18; TEMP 35.7; O2SAT 96; BMI 37.5
--- NOTE | 2020-04-06 14:38 | P.PCN_ITS ---
- Procedure Date: 04/06/20 Time: 14:38 Anesthesiologist:: Girma Kohler MD Complications:: None Pre-procedure Diagnosis:: Bilateral knee pain Post-procedure Diagnosis:: Same Indications for Procedure:: This patient is a pleasant 44-year-old white female who we have been treating for low back pain with lumbar radiculopathy symptoms. She does have a spinal cord stimulator in place. She has a lot of pain in her left hip. She has had a foreign body in the space and was sent to [place] for consult with her surgeon. We are awaiting notes from [place]. She is having a lot of pain in both knees today. She does have degenerative osteoarthritis both knees. Because of pain in both knees we will do bilateral intra-articular knee injections today. Procedure Details:: Bilateral intra-articular knee injection Informed consent was obtained the risk and benefits of the procedure were explained the patient. Patient was taken the procedure room. Both knees were prepped using ChloraPrep. A 25-gauge needle was used first medially then laterally to inject 10 mL bupivacaine 0.25% Depo-Medrol 40 mg into each knee. We used a total of 80 mg Depo-Medrol for both knees. Patient tolerated the procedure well with no complications. Plan and Disposition:: We will follow-up with her in 2 weeks. Will reevaluate symptoms at that time. Continues to have left hip pain. She says [place] was not planning on doing anything. We will seek a second opinion from the orthopedic physicians at [facility]. We will make a referral to them to reevaluate her left hip and left leg pain. We will also get her [employer] stimulator reprogrammed by the client relations representative.
[2020-04-06 14:42] VITALS: BP 132/88; PULSE 74
[2020-04-06 14:43] VITALS: BP 140/74; PULSE 85; RESP 18; O2SAT 98
[2020-04-06 14:58] VITALS: BP 143/74; PULSE 65; RESP 20; O2SAT 96
== END 2020-04-06 15:00 | disposition home or self-care (01) ==
LOC: SC.PAINP 13:51
PROVIDERS: PCP Emergency Medicine; Visit Provider Anesthesiology
DX: M25.561 Pain in right knee (principal); M25.562 Pain in left knee; I10 Essential (primary) hypertension; K21.9 Gastro-esophageal reflux disease without esophagitis; F32.9 Major depressive disorder, single episode, unspecified; F19.11 Other psychoactive substance abuse, in remission; I25.10 Atherosclerotic heart disease of native coronary artery without angina pectoris; G43.909 Migraine, unspecified, not intractable, without status migrainosus; D64.9 Anemia, unspecified; F41.9 Anxiety disorder, unspecified; Z88.0 Allergy status to penicillin; Z88.6 Allergy status to analgesic agent; Z72.0 Tobacco use
CPT/HCPCS: 20610; J1030

== ENCOUNTER → 2020-06-25 11:35 | Outpatient (POV) | payer OTHER, SELFPAY ==
[2020-06-25 11:57] VITALS: BP 129/91; PULSE 99; RESP 18; TEMP 36.4; O2SAT 98; BMI 36.3
--- NOTE | 2020-06-25 12:22 | HMH.PAINSOAP ---
[facility] Pain Management SOAP Note Subjective:: Patient is a pleasant 44-year-old white female who presents today for consultation regards to her knee pain. Patient bilateral intra-articular knee injections and got good relief with her left knee however she still having right knee pain. We have discussed genicular nerve block in the past she would like to move forward with this. Patient does have a [employer] neurostimulator however she states that it has been turned off for quite some time she has not had great relief with it at this point. However her biggest concern today is her knee pain. She rates her pain today 6 out of 10 ROS General: no recent weight change, no fever, no sleep disturbances Respiratory: no cough, no shortness of air, no recurring pulmonary infections Cardiovascular/Peripheral Vascular: No chest pain, No palpitations, no edema, no shortness of breath. Gastrointestinal: no new onset incontinence, normal bowel movements reported Genitourinary: no new onset incontinence Musculoskeletal: Right knee pain Psychiatric: normal mood/ affect Neurological: [denies new onset weakness in extremities], [denies new onset balance issues] Objective:: Physical Exam General: Alert and oriented x3, no acute distress, pleasant and cooperative, [on room air] Lungs: Resps E/U, Symmetrical chest expansion, Eyes: PERRL Musculoskeletal: Decreased range of motion right knee somewhat guarded secondary to pain, deep tendon reflexes normal, strength in upper and lower extremities [5/5], [abnormal gait noted] Neurological: speech clear, senior electrical estimator equal, no gross sensory deficits Assessment:: Right knee pain, osteoarthritis right knee Plan:: We will schedule the patient for right genicular knee block given her symptomology I do believe this would benefit her. At this time she is not utilizing her [employer] stimulator I will follow-up with her after her nerve block reassess her symptoms at that time she has been instructed to call the office if she has any issues prior to her next appointment. Dr. Kohler has reviewed this note and agrees with this plan of care. This note was dictated using voice recognition software and may contain errors or omissions [facility] History I have reviewed the patient's past medical history: Yes Medical History: Reports:: Anxiety, Cancer (cervical), Carotid Stenosis, Congestive Heart Failure, Coronary Artery Disease, Depression, Gastroesophageal Reflux Disease(GERD), Hyperlipidemia, Hypertension, Seizures Denies:: Diabetes Mellitus Type 1, Diabetes Mellitus Type 2, Internal Pacemaker, MRSA *Have you ever received a pneumonia vaccine?: Yes *Have you received a flu vaccine this season?: Yes Other Medical History: Reports: Anemia, Arthritis, Fibromyalgia, Hormone Therapy, Other. Denies: Blood Transfusion Reaction Laterality Cases: Left: Arthroscopy Shoulder, Bilateral: Other Other Surgeries: Yes: Appendectomy, Cardiac Catheterization, Cholecystectomy, Hysterectomy-Total, Hysterectomy-Partial, Other. No: Pacemaker Amputation: No Fractures: Yes (femur) - *Social History Smoking Status: Current every day smoker Tobacco Type: cigarettes # Packs/Day (cigarettes): 2 #Yrs smoked (if former smoker): 23 Alcohol Intake: never Alcohol Intake Frequency:: other Substance Use Type: former substance user, marijuana *Occupational Status:: other Housing: house Household Members: spouse, family *Travel in the last 8 weeks: None - Psychiatric History Pschychiatric History:: Reports:: Anxiety, Depression Family Hx:: Asthma, Cancer, Diabetes, Heart Attack, Hyperlipidemia, Hypertension, Stroke, Thyroid Disorder, Coronary Artery Disease
== END ==
PROVIDERS: PCP Emergency Medicine; Visit Provider Clinical Nurse Specialist Family Health
DX: M17.11 Unilateral primary osteoarthritis, right knee (principal)
CPT/HCPCS: 99212

== ENCOUNTER → 2020-07-12 09:39 | Outpatient (POV) | payer OTHER, SELFPAY ==
[2020-07-12 09:52] VITALS: BP 141/74; PULSE 84; RESP 18; TEMP 36.2; O2SAT 98; BMI 21.1
--- NOTE | 2020-07-12 10:43 | HMH.PAINSOAP ---
[facility] Pain Management SOAP Note Subjective:: Patient is a 44-year-old white female who presents today for follow-up. She has been treated for right in knee pain. She is scheduled for a right geniculate block of her right knee. Is here today with complaints of left low back pain with radiation into her left hip and left groin. She says it is radiating into her left leg as well. She does have a [employer] spinal cord stimulator but does not have the gun perforator loader for the device. Patient was asked if she has contacted her stimulator electronics parts sales representative or company for replacement of the gun perforator loader, however, she has not. I have advised patient she does need to contact the electronics parts sales representative. She is requesting a 4 pronged cane as well today. She says that she has lost her cane recently as well. Patient says that her pain is worse with standing and walking and does improve somewhat with sitting. She also asks if we will be able to fill out disability papers for her today. I have informed the patient that we are unable to do disability time. She does rate her pain a 7 out of 10 today. She would like to proceed with a left SI injection. She has tenderness at her left SI joint. She has tried physical therapy in the past along with continued home stretching program. She also uses ice and heat therapies. Review of Systems General: No recent weight changes, no fever, no sleep disturbances Respiratory: No cough, no shortness of air, no recurring pulmonary infections Cardiovascular/peripheral vascular: No chest pain, no palpitations, no edema, no shortness of breath Gastrointestinal: No new onset incontinence, normal bowel movements reported Genitourinary: No new onset incontinence Musculoskeletal: Left low back pain with radiation into left hip and left groin, right knee pain Psychiatric: Normal mood/affect Neurological: [Denies weakness in extremities], [denies balance issues] Objective:: Physical exam General: Alert and oriented x3, no acute distress, pleasant and cooperative, [on room air] Lungs: Respirations even and unlabored, symmetrical chest expansion Eyes: PERRL Musculoskeletal: Flexion and extension of [lumbar] spine somewhat guarded secondary to pain, deep tendon reflexes normal, strength in upper and lower extremities [5/5], [abnormal gait noted], positive Carol's test, positive distraction test, positive compression test Neurological: Speech clear, acidizer water well equal, no gross sensory deficit Assessment:: Left sacroiliitis, right knee pain Plan:: We will order the patient a cane. We will will also give her the representatives contact information to discuss replacement of her charging device for her spinal cord stimulator. We will also schedule her for left SI joint injection. She is try physical therapy along with ice and heat therapy and continued home stretching. She will follow-up with us after the injection for reassessment of her symptoms. She has been instructed to contact clinic if she has any concerns before next appointment. The patient and I specifically discussed risk factors for COVID19. These risks include, but are not limited to age greater than 60, heart or lung disease, diabetes, immunosuppression, and travel. We also discussed NSAIDs may worsen COVID19 infection or symptoms. Patient should not use NSAIDs to treat COVID19 signs or symptoms. Patient was also informed that any type of corticosteroid of any form (oral or injection) will decrease the patient's immune system response and may increase the likelihood of COVID19 infection and symptoms. Dr. Kohler has reviewed this note and agrees with this plan of care. This note was dictated using voice recognition software and make contain errors or omissions. [facility] History I have reviewed the patient's past medical history: Yes Medical History: Reports:: Anxiety, Cancer (cervical), Carotid Stenosis, Congestive Heart Failure, Coronary Artery Disease, Depression, Gastroesoph
== END ==
PROVIDERS: Visit Provider Clinical Nurse Specialist Family Health
DX: M46.1 Sacroiliitis, not elsewhere classified (principal); M25.561 Pain in right knee
CPT/HCPCS: 99212

== ENCOUNTER 2020-07-17 15:17 | Emergency (ER) | payer OTHER, SELFPAY ==
[2020-07-17 15:38] VITALS: BP 142/94; PULSE 74; RESP 19; TEMP 36.6; O2SAT 98; BMI 37.3
--- NOTE | 2020-07-17 15:42 | HMH.EDUTC ---
[facility] [place]ression: Encounter for laboratory testing for COVID-19 virus Otitis media Qualifiers: Otitis media type: unspecified Laterality: left Qualified Code(s): H66.92 - Otitis media, unspecified, left ear Disposition: Home, Self-Care Condition on Discharge: Good Instructions: Middle Ear Infection, Preventing the Spread of Coronavirus Discharge Instructions Additional Instructions: *Monitor Temp, Over the counter Motrin or Tylenol as directed/as needed Tylenol every 4 hours and Motrin every 6 hours (as long as your family doctor has told you that you can take it) for fever or pain. and straight to ER if unable to lower temp less than 101.0 after medication given *Warm salt water gargles may help to soothe the throat *Throat Lozenges *Warm fluids like tea with honey may help to soothe the throat *Sleep elevated *Humidifier/Vaporizer Follow up IMMEDIATELY for new or worsening symptoms or no Noticeable improvement over the next 48-72 hours. 911 for difficulty breathing or swallowing You were tested for today for COVID19 your test result should be back in the next 24-48 hours, you may call to the [facility] to see if your test results are back in the next 48 hours [phone] [facility] hours are 9am-9pm You was given a handout with instructions for Self Quarantine and Self isolation for while you wait on test results and what to do if they are positive If you are positive the Health Dept will be contacting you also Prescriptions: Azithromycin [Z-Paul 250mg Tab] 250 mg PO DIRECTED #6 tab Transmission Status: Received by [facility] Referrals: Jeevan Kevin MD [Primary Care Provider] - As needed Forms: Work/School Release Time of Disposition: 15:52 Medical Decision Making - Leonid Inquiry Pt receiving controlled substance: No Leonid was queried for this patient: No Vital Signs: 07/17/20 15:38 Temperature 97.9 F Temperature Source Oral Pulse Rate [Radial] 74 Respiratory Rate 19 Blood Pressure [Right Arm] 142/94 H Blood Pressure Mean [Right Arm] 110 Blood Pressure Source [Right Arm] Automatic Cuff Blood Pressure Position [Right Arm] Sitting 02 Sat by Pulse Oximetry 98 Oxygen Delivery Method Room Air Orders (Tests/Meds): ORDERS Category Date Time Status Covid-19 Nasal PCR Sendout [facility] 07/17/20 15:20 Ordered Medical Decision Narrative: Patient states that she has taken azithromycin before without reactions or complications [facility] [place] - General Stated complaint: covid test, treated for symptoms Time Seen by Provider: 07/17/20 15:42 Mode of Arrival: Ambulatory Source of Information: Patient Limitations: No Limitations Description of Symptoms (Recalled from Triage Doc. by RN): sore throat, cough, wants tested for covid HEENT Symptoms (Recalled from RN notes): Yes Resp Symptoms (Recalled from RN notes): No Skin Symptoms (Recalled from RN notes): No MS Symptoms (Recalled from RN notes): No Functional Status (Recalled from RN notes): wnl - History of Present Illness Provider Complaint: Patient states that she has been having sore throat, pain in her left ear and cough States that she just found out her neighbor that she has been around recently tested postive for COVID and wanted to get tested - Related Data Home Medications Medication Instructions Recorded Confirmed buprenorphine 8 mg-naloxone 2 mg 1.5 tab SUBLINGUAL BID tab 10/22/17 05/14/20 sublingual tablet Fluticasone Propionate [Flonase 1 spray INTRANASAL DAILY 12/01/18 05/14/20 Allergy Relief NS] Mupirocin [Centany] 1 applic TOPICAL BID 04/20/19 05/14/20 Albuterol Sulfate [Albuterol HFA 1 - 2 puffs IH Q4-6H PRN 05/24/19 05/14/20 Inhaler] Gabapentin 800 mg PO QID 04/06/20 05/14/20 Linaclotide [Linzess] See Rx Instructions .ROUTE .COMPLEX 04/06/20 05/14/20 Meloxicam 15 mg PO DAILY 04/06/20 05/14/20 Previous Rx's Medication Instructions Recorded pantoprazole 40 mg tablet,
[2020-07-17 16:21] VITALS: BP 142/94; PULSE 74; RESP 19; TEMP 36.6; O2SAT 98
[2020-07-19 14:10] LABS: Covid-19 Nasal PCR Sendout Lex Not Detected
== END 2020-07-17 16:22 | disposition home or self-care (01) ==
PROVIDERS: Emergency Provider Nurse Practitioner; PCP Emergency Medicine
DX: Z20.828 Contact with and (suspected) exposure to other viral communicable diseases (principal); H66.92 Otitis media, unspecified, left ear; F41.8 Other specified anxiety disorders; K21.9 Gastro-esophageal reflux disease without esophagitis; I10 Essential (primary) hypertension; I25.10 Atherosclerotic heart disease of native coronary artery without angina pectoris; E78.5 Hyperlipidemia, unspecified; F17.210 Nicotine dependence, cigarettes, uncomplicated; Z88.0 Allergy status to penicillin; Z88.2 Allergy status to sulfonamides; Z88.5 Allergy status to narcotic agent; Z79.899 Other long term (current) drug therapy
CPT/HCPCS: 99201; U0004

== ENCOUNTER 2020-07-20 11:30 | Day surgery (SDC) | payer OTHER, SELFPAY ==
[2020-07-20 12:14] VITALS: BP 151/102; PULSE 77; RESP 18; TEMP 36.6; O2SAT 98; BMI 35.2
[2020-07-20 12:42] VITALS: BP 138/88; PULSE 89; RESP 18
[2020-07-20 12:43] VITALS: BP 140/74; PULSE 89; RESP 18; O2SAT 98
--- NOTE | 2020-07-20 12:52 | P.PCN_ITS ---
- Procedure Date: 07/20/20 Time: 12:52 Anesthesiologist:: Girma Kohler MD Complications:: None Pre-procedure Diagnosis:: Right knee pain with degenerative osteoarthritis Post-procedure Diagnosis:: Same Indications for Procedure:: This patient is a pleasant 44-year-old white female who has increasing right knee pain. We will do a right genicular nerve block today to see if this gives her relief of her right knee pain. And to see if she may be candidate for radiofrequency ablation. Procedure Details:: Right genicular nerve block Informed consent was obtained the risk and benefits of the procedure were explained the patient. Patient was taken to the procedure room. The right knee was prepped using ChloraPrep. A 22-gauge spinal needle was inserted into the right genicular nerve superior lateral, superior medial and inferior medial genicular nerves. Needle placement is confirmed with dye. We then injected 3 mL bupivacaine 0.25% and Depo-Medrol 13 mg into each genicular nerve, superior medial, superior lateral and inferior medial genicular nerves. We used a total of 40 mg Depo-Medrol for all 3 nerves. Patient tolerated the procedure well wi th no complications. Plan and Disposition:: We will follow-up with this patient in 2 weeks. Will reevaluate her symptoms at that time. She does get good relief from these blocks, she may be a candidate for RF ablation to the genicular nerves.
[2020-07-20 12:55] VITALS: BP 151/99; PULSE 77; RESP 18; O2SAT 98
== END 2020-07-20 12:56 | disposition home or self-care (01) ==
LOC: SC.PAINP 11:32
PROVIDERS: PCP Emergency Medicine; Visit Provider Anesthesiology
DX: M17.11 Unilateral primary osteoarthritis, right knee (principal); I10 Essential (primary) hypertension; E78.5 Hyperlipidemia, unspecified; M79.10 Myalgia, unspecified site; Z72.0 Tobacco use; Z88.0 Allergy status to penicillin; Z88.2 Allergy status to sulfonamides; Z88.6 Allergy status to analgesic agent; Z79.82 Long term (current) use of aspirin; Z79.899 Other long term (current) drug therapy
CPT/HCPCS: 64454; Q9966

== ENCOUNTER 2020-08-06 14:15 | Day surgery (SDC) | payer OTHER, SELFPAY ==
[2020-08-06 14:17] VITALS: BP 123/73; PULSE 91; RESP 18; TEMP 36.1; BMI 36.6
[2020-08-06 14:52] VITALS: BP 125/74; PULSE 74; RESP 18
[2020-08-06 14:57] VITALS: BP 128/85; PULSE 74; RESP 18; O2SAT 98
--- NOTE | 2020-08-06 14:59 | HMH.PMPROC ---
- Procedure Date: 08/06/20 Time: 14:59 Anesthesiologist:: Zainab Brown APRN Complications:: None Pre-procedure Diagnosis:: sacroiliitis Post-procedure Diagnosis:: Same Indications for Procedure:: Patient is a pleasant 44-year-old white female who is having left SI joint pain. Patient has a positive Fili test SI joint compression test and distraction test on the left side. She presents today for left SI joint injection. We will move forward with this today. Procedure Details:: Informed consent was obtained and the risks and benefits of the procedure were explained to the patient. Patient was taken to the procedure room. Patient was placed prone on the procedure table. The left hip was prepped using ChloraPrep as a cleansing solution. The skin and subcutaneous tissues were anesthetized using lidocaine. Using fluoroscopic guidance I placed a 22-gauge spinal needle into the inferior aspect of the left SI joint. After this I injected 5 mL bupivacaine 0.25% and Depo-Medrol 40 mg into the left SI joint. The patient tolerated the procedure well with no complication. Plan and Disposition:: I will see the patient back in several weeks reassess her symptoms at that time she has been instructed to call the office if she has any issues prior to her next appointment. Dr. Kohler has reviewed this note and agrees with this plan of care. This note was dictated using voice recognition software and may contain errors or omissions
[2020-08-06 15:08] VITALS: BP 151/80; PULSE 74; RESP 18; O2SAT 98
== END 2020-08-06 15:09 | disposition home or self-care (01) ==
LOC: SC.PAINP 14:16
PROVIDERS: PCP Nurse Practitioner Family; Visit Provider Clinical Nurse Specialist Family Health
DX: M46.1 Sacroiliitis, not elsewhere classified (principal); I10 Essential (primary) hypertension; K21.9 Gastro-esophageal reflux disease without esophagitis; F41.9 Anxiety disorder, unspecified; Z88.0 Allergy status to penicillin; Z88.6 Allergy status to analgesic agent; Z88.2 Allergy status to sulfonamides; Z79.899 Other long term (current) drug therapy
CPT/HCPCS: 27096; G0260; J1040; Q9966

== ENCOUNTER → 2020-10-22 12:10 | Outpatient (CLI) | payer OTHER, SELFPAY ==
[2020-10-22 12:14] LABS: Microscopic, Urine URINE MICROSCOPIC (MICROSCOPIC)
[2020-10-22 12:53] LABS: Basophils # 0.1 K/mm3 (0-0.2); Basophils % 1.1 % (0.1-2.0); Eosinophils # 0.2 K/mm3 (0.0-0.4); Eosinophils % 1.4 % (0.1-12.0); Hematocrit 48.8 % (37.0-47.0); Hemoglobin 16.1 g/dL (12.2-16.2); Lymphocytes # 4.1 K/mm3 (0.7-4.5); Lymphocytes % 39.7 % (10-50); Mean Corpuscular HGB Conc 32.9 g/dL (31.8-35.4); Mean Corpuscular Hemoglobin 30.9 pg (27.0-31.2); Mean Corpuscular Volume 93.8 fl (81-99); Mean Platelet Volume 9.1 fl (7.4-10.4); Monocytes # 0.4 K/mm3 (0.1-1.0); Monocytes % 3.9 % (1.7-9.3); Neutrophils # 5.6 K/mm3 (1.8-7.8); Neutrophils % 53.9 % (37.0-80.0); Platelet Count 223 K/mm3 (142-424); Red Blood Count 5.21 M/mm3 (4.20-5.40); Red Cell Distribution Width 14.2 % (11.5-17.5); White Blood Count 10.5 K/mm3 (4.8-10.8)
[2020-10-22 13:14] LABS: Chloride 102 mmol/L (98-107); Sodium 142 mmol/L (136-145)
[2020-10-22 13:17] LABS: Alanine Aminotransferase 20 U/L (12-78); Albumin Level 4.7 g/dl (3.5-5.0); Albumin/Globulin Ratio 1.5 (1.1-1.8); Alkaline Phosphatase 85 U/L (38-126); Aspartate Amino Transferase 25 U/L (14-36); Bilirubin,Total 0.5 mg/dl (0.2-1.3); Blood Urea Nitrogen 22 mg/dl (7-17); Carbon Dioxide 34 mmol/L (22.0-30.0); Cholesterol 191 mg/dl (140-200); Estimated Glomerular Filt Rate 68 ml/min (>60); GFR (African American) 82 ML/MIN (>60); Globulin 3.1 g/dL (1.3-3.2); Total Protein,Serum 7.8 g/dl (6.3-8.2); Triglycerides 104 mg/dl (30-150); VLDL Cholesterol 21 mg/dL (0-40)
[2020-10-22 13:18] LABS: Calcium 10.2 mg/dl (8.4-10.2); Chol/HDL Ratio 2.7 (1-3.5); Glucose 112 mg/dl (74-100); HDL Cholesterol 71 mg/dl (40-60)
[2020-10-22 13:29] LABS: Direct LDL Cholesterol 85.31 mg/dL (100-129)
[2020-10-22 13:35] LABS: Free Thyroxine Index 3.2 ug/dL (5.93-13.13); T4 (Thyroxine) 11.2 ug/dl (5.53-11.0); Triiodothryronine (T3) Uptake 29 % (23.5-40.5)
[2020-10-22 13:49] LABS: Thyroid Stimulating Hormone 0.94 uIU/mL (0.465-4.68)
[2020-10-22 14:34] LABS: Appearance,Urine CLEAR (Clear); Bilirubin,Urine Negative (Negative); Blood, Urine Negative (Negative); Color,Urine YELLOW (Yellow); Glucose,Urine (UA) Negative (Negative); Ketones,Urine Negative (Negative); Leukocyte Esterase,Urine Negative (Negative); Nitrate,Urine Negative (Negative); Protein,Urine Negative (Negative); Specific Gravity, Urine 1.015 (1.005-1.030); Urobilinogen,Urine 0.2 EU/dl (0.2)
[2020-10-23 12:03] LABS: Hep A Ab, IgM Negative (Negative); Hepatitis B Core Antibody IgM Negative (Negative); Hepatitis B Surface Antigen Negative (Negative)
[2020-10-23 14:21] LABS: HIV Screen 4th Generation wRfx Non Reactive (Non Reactive); Hepatitis C Antibody <0.1 s/co ratio (0.0-0.9)
== END ==
PROVIDERS: Visit Provider Nurse Practitioner Family
DX: Z00.00 Encounter for general adult medical examination without abnormal findings (principal); Z11.4 Encounter for screening for human immunodeficiency virus [HIV]
CPT/HCPCS: 36415; 80053; 80061; 80074; 81001; 84436; 84443; 84479; 85025; 86703; G0432

== ENCOUNTER → 2020-10-25 12:39 | Outpatient (POV) | payer OTHER, SELFPAY ==
[2020-10-25 14:03] VITALS: BP 128/79; PULSE 89; RESP 18; O2SAT 99; BMI 37.5
--- NOTE | 2020-10-29 08:33 | HMH.PAINSOAP ---
[facility] Pain Management SOAP Note Subjective:: Patient is a pleasant 45-year-old white female who presents today for follow-up. Patient had a left SI joint injection back in July and did extremely well with it. Her pain is beginning to return. She gets 80% relief for up to 3 months. Patient would like to repeat her left SI joint injection given the efficacy of it. Patient also wants to discuss her knee. Patient does have notable swelling. I will send her to her orthopedic for potential drainage. She rates her pain today a 6 out of 10. ROS General: no recent weight change, no fever, no sleep disturbances Respiratory: no cough, no shortness of air, no recurring pulmonary infections Cardiovascular/Peripheral Vascular: No chest pain, No palpitations, no edema, no shortness of breath. Gastrointestinal: no new onset incontinence, normal bowel movements reported Genitourinary: no new onset incontinence Musculoskeletal: Left SI joint pain Psychiatric: normal mood/ affect Neurological: [denies new onset weakness in extremities], [denies new onset balance issues] Objective:: Physical Exam General: Alert and oriented x3, no acute distress, pleasant and cooperative, [on room air] Lungs: Resps E/U, Symmetrical chest expansion, Eyes: PERRL Musculoskeletal: Flexion and extension of lumbar spine somewhat guarded secondary to pain, deep tendon reflexes normal, strength in upper and lower extremities [5/5], [abnormal gait noted] Neurological: speech clear, drill rig operator helper equal, no gross sensory deficits Assessment:: Sacroiliitis Plan:: Schedule the patient for left SI joint injection. Patient's done well with this in the past. I do believe given her symptomology this would benefit her. I will follow-up with her after reassess her symptoms at that time she has been instructed to call the office if she has any issues prior to her next appointment. Dr. Kohler has reviewed this note and agrees with this plan of care. This note was dictated using voice recognition software and may contain errors or omissions [facility] History I have reviewed the patient's past medical history: Yes Medical History: Reports:: Anxiety, Carotid Stenosis, Congestive Heart Failure, Coronary Artery Disease, Depression, Gastroesophageal Reflux Disease(GERD), Hyperlipidemia, Hypertension Denies:: Cancer, Diabetes Mellitus Type 1, Diabetes Mellitus Type 2, Internal Pacemaker, MRSA, Seizures *Have you ever received a pneumonia vaccine?: Yes *Have you received a flu vaccine this season?: Yes Other Medical History: Reports: Anemia, Arthritis, Fibromyalgia, Hormone Therapy, Other. Denies: Blood Transfusion Reaction Laterality Cases: Left: Arthroscopy Shoulder, Bilateral: Other Other Surgeries: Yes: Appendectomy, Cardiac Catheterization, Cholecystectomy, Hysterectomy-Total, Hysterectomy-Partial, Other. No: Pacemaker Amputation: No Fractures: Yes (femur) - *Social History Smoking Status: Current every day smoker Tobacco Type: cigarettes # Packs/Day (cigarettes): 1 #Yrs smoked (if former smoker): 23 Alcohol Intake: never Alcohol Intake Frequency:: other Substance Use Type: former substance user, marijuana *Occupational Status:: other Housing: house Household Members: spouse *Travel in the last 8 weeks: None - Psychiatric History Pschychiatric History:: Reports:: Anxiety, Depression Family Hx:: Asthma, Cancer, Diabetes, Heart Attack, Hyperlipidemia, Hypertension, Stroke, Thyroid Disorder, Coronary Artery Disease
== END ==
PROVIDERS: PCP Nurse Practitioner Family; Visit Provider Clinical Nurse Specialist Family Health
DX: M46.1 Sacroiliitis, not elsewhere classified (principal)
CPT/HCPCS: 99212; G0463

== ENCOUNTER 2020-11-02 10:44 | Day surgery (SDC) | payer OTHER, SELFPAY ==
[2020-11-02 11:31] VITALS: BP 134/85; PULSE 73; TEMP 36.2; O2SAT 91; BMI 37.5
[2020-11-02 11:58] VITALS: BP 132/85; BP 141/74; PULSE 85; PULSE 89; RESP 18; O2SAT 98
--- NOTE | 2020-11-02 11:58 | P.PCN_ITS ---
- Procedure Date: 11/02/20 Time: 11:58 Anesthesiologist:: Girma Kohler MD Complications:: None Pre-procedure Diagnosis:: Sacroiliitis Post-procedure Diagnosis:: Same Indications for Procedure:: Patient is a pleasant 45-year-old white female who we are treating for left- sided hip pain. She is tender over the left SI joint. She has positive Carol's test on the left side. She is positive Fili test on left side. She has positive SI joint compression test on the left side. We will do a left SI joint injection under fluoroscopy today to help her with her pain symptoms. She has done well with these injections in the past. Also if she is doing well with her spinal cord stimulator. Procedure Details:: Left SI joint injection under fluoroscopy Informed consent was obtained and the risks and benefits of the procedure was explained to the patient. Patient was taken to the procedure room. Patient was placed prone on the procedure table. The left hip was prepped using ChloraPrep. The skin and subcutaneous tissues were anesthetized using lidocaine. I placed a 22-gauge spinal needle into the inferior aspect of the left SI joint. Needle placement was confirmed with dye. After this we injected 5 mL bupivacaine 0.25% and Depo-Medrol 40 mg into the left SI joint. The patient tolerated the procedure well with no complication. Plan and Disposition:: We will follow-up with her in 2 weeks. Will reevaluate symptoms at that time.
[2020-11-02 12:05] VITALS: BP 156/89; PULSE 66; RESP 20; O2SAT 95
== END 2020-11-02 12:05 | disposition home or self-care (01) ==
LOC: SC.PAINP 10:44
PROVIDERS: PCP Nurse Practitioner Family; Visit Provider Anesthesiology
DX: M46.1 Sacroiliitis, not elsewhere classified (principal); I10 Essential (primary) hypertension; E78.5 Hyperlipidemia, unspecified; M19.90 Unspecified osteoarthritis, unspecified site; Z88.0 Allergy status to penicillin; Z88.2 Allergy status to sulfonamides; Z88.6 Allergy status to analgesic agent; Z72.0 Tobacco use; J45.909 Unspecified asthma, uncomplicated; F41.9 Anxiety disorder, unspecified; F32.9 Major depressive disorder, single episode, unspecified; Z79.899 Other long term (current) drug therapy; Z79.82 Long term (current) use of aspirin
CPT/HCPCS: 27096; G0260; J1040; Q9966

== ENCOUNTER → 2020-11-20 07:44 | Outpatient (CLI) | payer OTHER, SELFPAY ==
--- NOTE | 2020-11-20 07:47 | XR_ITS ---
PROCEDURE: XR KNEE RT 4V CLINICAL INDICATION: knee pain Right anterior knee pain with swelling COMPARISON: [id number] XR knee RT 4V from 11/03/2017 FINDINGS: No fracture or dislocation. No lytic or blastic change. There is normal mineralization. There are mild osteoarthritic changes involving all 3 compartments. May be a small suprapatellar effusion. Other findings:There is a 3 mm calcific density superior to the lateral tibial spine and may be due to an osteophyte with lucency at its base. Cannot exclude the possibility of a loose body. IMPRESSION: Mild osteoarthritic changes with possible loose body or spur at the lateral tibial spine Dictated by: Shimon Trinidad MD 11/20/2020 16:23 Shimon Trinidad MD in [place] 11/20/2020 16:23
== END ==
PROVIDERS: PCP Emergency Medicine; Visit Provider Orthopaedic Surgery
DX: M25.561 Pain in right knee (principal); G89.29 Other chronic pain
CPT/HCPCS: 73564

== ENCOUNTER → 2020-12-20 12:50 | Outpatient (POV) | payer OTHER, SELFPAY ==
[2020-12-20 13:09] VITALS: BP 144/85; PULSE 81; RESP 18; O2SAT 98; BMI 37.9
--- NOTE | 2020-12-20 15:10 | HMH.PAINSOAP ---
[facility] Pain Management SOAP Note Subjective:: Patient is a pleasant 45-year-old white female who presents today for follow-up. Patient had a left SI joint injection which she got over 90% relief with a couple months ago. Patient since then has gone traveling and has flared her pain back up. She has a left-sided Fili test, distraction test, Carol's test, compression test on the left side are all positive. Patient currently on gabapentin 800 mg 1 p.o. 4 times daily. [facility] #[id number] reviewed and appropriate. ROS General: no recent weight change, no fever, no sleep disturbances Respiratory: no cough, no shortness of air, no recurring pulmonary infections Cardiovascular/Peripheral Vascular: No chest pain, No palpitations, no edema, no shortness of breath. Gastrointestinal: no new onset incontinence, normal bowel movements reported Genitourinary: no new onset incontinence Musculoskeletal: Back pain, leg pain Psychiatric: normal mood/ affect Neurological: [denies new onset weakness in extremities], [denies new onset balance issues] Objective:: Physical Exam General: Alert and oriented x3, no acute distress, pleasant and cooperative, [on room air] Lungs: Resps E/U, Symmetrical chest expansion, Eyes: PERRL Musculoskeletal: Flexion and extension of lumbar spine somewhat guarded secondary to pain, deep tendon reflexes normal, strength in upper and lower extremities [5/5], [abnormal gait noted] Neurological: speech clear, flight operations dispatch clerk equal, no gross sensory deficits Assessment:: Sacroiliitis Plan:: We will continue her gabapentin 800 mg 1 p.o. 4 times daily. We will set her up for a left SI joint injection. I will follow-up with her afterwards reassess her symptoms at that time she has been instructed to call the office if she has any issues prior to her next appointment. Dr. Kohler has reviewed this note and agrees with this plan of care. This note was dictated using voice recognition software and may contain errors or omissions [facility] History I have reviewed the patient's past medical history: Yes Medical History: Reports:: Anxiety, Carotid Stenosis, Congestive Heart Failure, Coronary Artery Disease, Depression, Gastroesophageal Reflux Disease(GERD), Hyperlipidemia, Hypertension Denies:: Cancer, Diabetes Mellitus Type 1, Diabetes Mellitus Type 2, Internal Pacemaker, MRSA, Seizures *Have you ever received a pneumonia vaccine?: Yes *Have you received a flu vaccine this season?: Yes Other Medical History: Reports: Anemia, Arthritis, Fibromyalgia, Hormone Therapy, Other. Denies: Blood Transfusion Reaction Laterality Cases: Left: Arthroscopy Shoulder, Bilateral: Other Other Surgeries: Yes: Appendectomy, Cancer Surgery, Cardiac Catheterization, Cholecystectomy, Hysterectomy-Total, Hysterectomy-Partial, Other. No: Pacemaker Amputation: No Fractures: Yes (femur) - *Social History Smoking Status: Current every day smoker Tobacco Type: cigarettes # Packs/Day (cigarettes): 2 #Yrs smoked (if former smoker): 23 Alcohol Intake: never Alcohol Intake Frequency:: other Substance Use Type: former substance user, marijuana *Occupational Status:: employed Housing: house Household Members: spouse *Travel in the last 8 weeks: None - Psychiatric History Pschychiatric History:: Reports:: Anxiety, Depression Family Hx:: Asthma, Cancer, Diabetes, Heart Attack, Hyperlipidemia, Hypertension, Stroke, Thyroid Disorder, Coronary Artery Disease
== END ==
PROVIDERS: PCP Nurse Practitioner Family; Visit Provider Clinical Nurse Specialist Family Health
DX: M46.1 Sacroiliitis, not elsewhere classified (principal)
CPT/HCPCS: 99212; G0463

== ENCOUNTER 2020-12-28 13:50 | Day surgery (SDC) | payer OTHER, SELFPAY ==
[2020-12-28 13:55] VITALS: BP 144/84; PULSE 84; RESP 18; TEMP 36.6; O2SAT 98; BMI 37.9
[2020-12-28 14:31] VITALS: BP 135/85; PULSE 88; RESP 18; O2SAT 98
[2020-12-28 14:32] VITALS: BP 133/74; PULSE 85; RESP 18; O2SAT 98
--- NOTE | 2020-12-28 14:32 | HMH.PMPROC ---
- Procedure Date: 12/28/20 Time: 14:32 Anesthesiologist:: Girma Kohler MD Complications:: None Pre-procedure Diagnosis:: Sacroiliitis Post-procedure Diagnosis:: Same Indications for Procedure:: Patient is a pleasant 45-year-old white female who we are treating for sacroiliitis. She has increasing pain on the left hip. She has benefited from previous left SI joint injections under fluoroscopy she is tender over her left SI joint. She does have a positive Carol's test on left side. She is positive Fili test on left side. She is positive SI joint compression test on left side. We will do a left SI joint junction under fluoroscopy today to help with pain symptoms. Procedure Details:: Left SI joint injection under fluoroscopy Informed consent was obtained and the risks and benefits of the procedure was explained to the patient. Patient was taken to the procedure room. Patient was placed prone on the procedure table. The left hip was prepped using ChloraPrep. The skin and subcutaneous tissues were anesthetized using lidocaine. I placed a 22-gauge spinal needle into the inferior aspect of the left SI joint. Needle placement was confirmed with dye. After this we injected 5 mL bupivacaine 0.25% and Depo-Medrol 40 mg into the left SI joint. The patient tolerated the procedure well with no complication. Plan and Disposition:: We will follow-up with her in 2 weeks. Will reevaluate symptoms at that time.
[2020-12-28 14:50] VITALS: BP 104/87; PULSE 84; RESP 18; O2SAT 98
== END 2020-12-28 14:50 | disposition home or self-care (01) ==
LOC: SC.PAINP 13:51
PROVIDERS: PCP Nurse Practitioner Family; Visit Provider Anesthesiology
DX: M46.1 Sacroiliitis, not elsewhere classified (principal); I25.10 Atherosclerotic heart disease of native coronary artery without angina pectoris; F41.9 Anxiety disorder, unspecified; F32.9 Major depressive disorder, single episode, unspecified; I11.0 Hypertensive heart disease with heart failure; I50.9 Heart failure, unspecified; K21.9 Gastro-esophageal reflux disease without esophagitis; Z72.0 Tobacco use
CPT/HCPCS: 27096; G0260; J1040; Q9966

== ENCOUNTER → 2021-01-24 12:28 | Outpatient (POV) | payer OTHER, SELFPAY ==
[2021-01-24 13:00] VITALS: BP 138/74; PULSE 98; RESP 18; O2SAT 96; BMI 37.2
--- NOTE | 2021-01-24 13:09 | HMH.PAINSOAP ---
[facility] Pain Management SOAP Note Subjective:: Patient is a 45-year-old white female who presents today for follow-up after a left SI joint injection. She has been treated for chronic low back pain and left hip pain. She rates her pain an 8 out of 10 today. She was recently without her gabapentin. She takes gabapentin 800 g 1 tablet p.o. 4 times daily. She says that she has been withdrawing from her gabapentin. She says that she contact clinic for a refill, however, was not called back. She is very frustrated today because she says that she feels that we are treating her like a junky . She is complaining of bilateral knee pain as well. Dr. Ramirez does see her for bilateral knee pain and does periodically treat her with injections, however, she would like to proceed with injections in the clinic as well. Patient says today, however, her pain is at its worse and the left low back and left hip and left leg. She is tender to palpation to her left SI joint. She is also positive for Carol's, compression, distraction test on the left side. Patient says that she got 70 to 80% relief with her last left SI joint injection for approximately 2 weeks. Review of Systems General: No recent weight changes, no fever, no sleep disturbances Respiratory: No cough, no shortness of air, no recurring pulmonary infections Cardiovascular/peripheral vascular: No chest pain, no palpitations, no edema, no shortness of breath Gastrointestinal: No new onset incontinence, normal bowel movements reported Genitourinary: No new onset incontinence Musculoskeletal: Low back pain with radiation into left buttock and left leg, bilateral knee pain Psychiatric: Normal mood/affect Neurological: [Denies weakness in extremities], [denies balance issues] Objective:: Physical exam General: Alert and oriented x3, no acute distress, pleasant and cooperative, [on room air] Lungs: Respirations even and unlabored, symmetrical chest expansion Eyes: PERRL Musculoskeletal: Flexion and extension of lumbar spine somewhat guarded secondary to pain, deep tendon reflexes normal, strength in upper and lower extremities [5/5], [abnormal gait noted], positive Carol's test, positive distraction test, positive compression test left side Neurological: Speech clear, flame hardening machine setter equal, no gross sensory deficit Assessment:: Degenerative osteoarthritis bilateral knees, sacroiliitis left Plan:: We will refill the patient's gabapentin 800 mg 1 tablet p.o. 4 times daily. We will also schedule patient for a left SI joint injection. She did get significant relief with her last injection. She will continue with home stretching and has had physical therapy in the past for greater than 6 weeks. She will continue with ice and heat therapies and anti-inflammatories. After treating her left SI joint, we will proceed with bilateral knee injections. She says that she has not had injections with us to her knees for some time. We will follow-up her with her after her left SI injection to reevaluate her symptoms. Risks and benefits of the procedure have been explained to the patient. Patient would like to proceed with the procedure. Possible side effects of corticosteroids have been discussed with the patient. Patient has been instructed to contact the clinic with any concerns before the next appointment. Dr. Kohler has reviewed this note and agrees with this plan of care. Patient risk this note was dictated using voice recognition software and make contain errors or omissions. [facility] History I have reviewed the patient's past medical history: Yes Medical History: Reports:: Anxiety, Carotid Stenosis, Congestive Heart Failure, Coronary Artery Disease, Depression, Gastroesophageal Reflux Disease(GERD), Hyperlipidemia, Hypertension Denies:: Cancer, Diabetes Mellitus Type 1, Diabetes Mellitus Type 2, Internal Pacemaker, MRSA, Seizures *Have you ever received a pneumonia vaccine?: No *Have you received a flu vac
== END ==
PROVIDERS: PCP Nurse Practitioner Family; Visit Provider Clinical Nurse Specialist Family Health
DX: M17.0 Bilateral primary osteoarthritis of knee (principal); M46.1 Sacroiliitis, not elsewhere classified
CPT/HCPCS: 99212; G0463

== ENCOUNTER → 2021-03-12 08:27 | Outpatient (CLI) | payer OTHER, SELFPAY ==
--- NOTE | 2021-03-12 08:35 | XR_ITS ---
PROCEDURE: XR KNEE LT 4V CLINICAL INDICATION: left knee pain COMPARISON: CR [id number] XR knee RT 4V from 11/03/2017 CR XR KNEE RT 4V from 11/20/2020 FINDINGS: Intramedullary shahla is present in the distal femur. There is slight decrease in the knee joint space medially and laterally with minimal osteosclerosis and minimal osteophyte formation consistent with minimal osteoarthritis. No fracture or dislocation Other findings:None. IMPRESSION: Minimal osteoarthritic changes Dictated by: Shimon Trinidad MD 03/12/2021 13:29 Shimon Trinidad MD in [place] 03/12/2021 13:29
== END ==
PROVIDERS: PCP Emergency Medicine; Visit Provider Orthopaedic Surgery
DX: M25.562 Pain in left knee (principal)
CPT/HCPCS: 73564

== ENCOUNTER → 2021-05-24 10:34 | Outpatient (CLI) | payer OTHER, SELFPAY | PROVIDERS: PCP Emergency Medicine; Visit Provider Nurse Practitioner | DX: Z20.822 Contact with and (suspected) exposure to COVID-19 (principal) | CPT/HCPCS: C9803; U0003; U0005 ==

== ENCOUNTER → 2021-07-29 08:31 | Outpatient (POV) | payer OTHER, SELFPAY ==
[2021-07-29 08:57] VITALS: BP 140/89; PULSE 66; RESP 18; O2SAT 99; BMI 37.8
--- NOTE | 2021-07-29 09:16 | HMH.PAINSOAP ---
[facility] Pain Management SOAP Note Subjective:: Patient is a 45-year-old white female who presents today for follow-up. She was last seen on January 24, 2021. She is having left low back pain with radiation into her left buttock, hip and leg. The pain is a 6 out of 10. She does get gabapentin from our clinic at 800 mg 1 tablet p.o. 4 times daily. She does undergo injective therapy in the clinic with SI injections. She does feel that her SI joint is inflamed once again. She says it feels much like the pain she has had in the past. The patient injections give her up to 80 to 90% relief for a few months. The pain has returned. Today, she is also complaining of left foot pain. She says that she feels that she is walking on rocks at the ball of her foot. She says that she is also having some swelling to the area. She is having difficulty standing for prolonged periods due to pain in her foot. This is new for her. The pain in her foot has been ongoing for approximately 1 month. She also has burning sensation to her foot. Review of Systems General: No recent weight changes, no fever, no sleep disturbances Respiratory: No cough, no shortness of air, no recurring pulmonary infections Cardiovascular/peripheral vascular: No chest pain, no palpitations, no edema, no shortness of breath Gastrointestinal: No new onset incontinence, normal bowel movements reported Genitourinary: No new onset incontinence Musculoskeletal: Left foot pain, left low back pain with radiation into left buttock and left leg Psychiatric: [Normal mood/affect] Neurological: [Denies weakness in extremities], [denies balance issues] Objective:: Physical exam General: Alert and oriented x3, no acute distress, pleasant and cooperative Lungs: Respirations even and unlabored, symmetrical chest expansion Eyes: PERRL Musculoskeletal: Flexion and extension of lumbar [spine] somewhat guarded secondary to pain, [antalgic gait noted], positive pedal pulses, positive Carol's test, positive distraction test, positive compression test, positive Gaenslen's test, positive Buskirk's test Neurological: Speech clear, no gross sensory deficit Assessment:: Left foot pain, left low back pain, sacroiliitis left Plan:: We will schedule the patient for a left SI joint injection. We will also refer the patient to Dr. Arndt for left foot pain?acute x1 month. The patient has seen Dr. Milan in the past for a brain tumor history. We did discuss Dr. Milan referral, however, she would like to see Dr. Arndt before proceeding with neurology consult. She and I did discuss she may need nerve conduction studies to her lower extremities. She is tender to her left SI joint today with a positive Carol's, compression, distraction, Gaenslen's, Fili test. We will schedule her for left SI joint injection. She has gotten up to 90% relief with injections in the past. The patient will continue with home stretching. She has tried physical therapy for more than 6 weeks in the past with minimal relief. She is also tried continued home stretching and ice and heat therapies. We will continue patient's gabapentin her milligrams 1 tablet p.o. 4 times daily. We will give the patient 3 months of the medication and plan to see her back in 3 months as well for medication refill. Possible side effects of corticosteroids have been discussed with the patient. Risks and benefits of the procedure have been explained to the patient. Patient would like to proceed with the procedure. Patient has been instructed to contact the clinic with any concerns before the next appointment. Dr. Kohler has reviewed this note and agrees with this plan of care. This note was dictated using voice recognition software and make contain errors or omissions. [facility] History I have reviewed the patient's past medical history: Yes Medical History: Reports:: Anxiety, Carotid Stenosis, Congestive Heart Failure, Coronary Artery Disease, Depr
== END ==
PROVIDERS: Visit Provider Clinical Nurse Specialist Family Health
DX: M79.672 Pain in left foot (principal); M54.59 Other low back pain; M46.1 Sacroiliitis, not elsewhere classified
CPT/HCPCS: 99212; G0463

== ENCOUNTER 2021-08-14 15:31 | Day surgery (SDC) | payer OTHER, SELFPAY ==
[2021-08-14 15:47] VITALS: BP 158/86; PULSE 79; RESP 20; TEMP 36.3; O2SAT 95; BMI 37.3
--- NOTE | 2021-08-14 16:03 | P.PCN_ITS ---
- Procedure Date: 08/14/21 Time: 16:04 Anesthesiologist:: Girma Kohler MD Complications:: None Pre-procedure Diagnosis:: Sacroiliitis Post-procedure Diagnosis:: Same Indications for Procedure:: Patient is a pleasant 45-year-old white female who we are treating for left- sided SI joint pain. She is tender over her left SI joint. She has positive Carol's test on left side. She is positive Fili test on the left side. She has positive SI joint compression test on the left side. We will plan on left SI joint injection under fluoroscopy today. She is gotten great benefit from these injections in the past for several weeks. She gets 80 to 90% relief in her pain symptoms. She also has a [employer] spinal cord stimulator. Her leads are in good position however she is having issues with her generator. We will have the [employer] industrial relations representative reach out to her to work on charging her stimulator battery or replacement. Procedure Details:: Left SI joint injection under fluoroscopy Informed consent was obtained and the risks and benefits of the procedure was explained to the patient. Patient was taken to the procedure room. Patient was placed prone on the procedure table. The left hip was prepped using ChloraPrep. The skin and subcutaneous tissues were anesthetized using lidocaine. I placed a 22-gauge spinal needle into the inferior aspect of the left SI joint. Needle placement was confirmed with dye. After this we injected 5 mL bupivacaine 0.25% and Depo-Medrol 40 mg into the left SI joint. The patient tolerated the procedure well with no complication. Plan and Disposition:: We will follow-up with her in 2 weeks. Will reevaluate symptoms at that time. If she does not get long-term relief from these SI joint injection she may be a candidate for SI joint stabilization with either cornerloc or omnia. Also we need to follow-up on the [employer] industrial relations representative meeting her for evaluating her generator. Her battery is she may need replacement of her stimulator battery.
[2021-08-14 16:05] VITALS: BP 160/97; PULSE 74; RESP 18; O2SAT 97
[2021-08-14 16:06] VITALS: PULSE 68; RESP 18; O2SAT 97
[2021-08-14 16:09] VITALS: BP 156/93; PULSE 80; RESP 20; O2SAT 93
== END 2021-08-14 16:10 | disposition home or self-care (01) ==
LOC: SC.PAINP 15:32
PROVIDERS: PCP Emergency Medicine; Visit Provider Anesthesiology
DX: M46.1 Sacroiliitis, not elsewhere classified (principal); E78.5 Hyperlipidemia, unspecified; I11.0 Hypertensive heart disease with heart failure; I50.9 Heart failure, unspecified; K21.9 Gastro-esophageal reflux disease without esophagitis; F41.9 Anxiety disorder, unspecified; F32.A Depression, unspecified; Z72.0 Tobacco use; I65.29 Occlusion and stenosis of unspecified carotid artery; J44.9 Chronic obstructive pulmonary disease, unspecified; Z90.49 Acquired absence of other specified parts of digestive tract; Z85.41 Personal history of malignant neoplasm of cervix uteri
CPT/HCPCS: 27096; 76000; G0260; J1040; Q9966

== ENCOUNTER → 2021-09-19 09:25 | Outpatient (CLI) | payer OTHER, SELFPAY ==
[2021-09-20 09:04] LABS: Covid-19 Nasal PCR Sendout Lex NOT DETECTED
== END ==
PROVIDERS: Visit Provider Nurse Practitioner
DX: Z20.822 Contact with and (suspected) exposure to COVID-19 (principal)
CPT/HCPCS: C9803; U0004; U0005

== ENCOUNTER → 2022-01-08 12:58 | Outpatient (CLI) | payer OTHER, SELFPAY ==
--- NOTE | 2022-01-08 12:59 | CA_ITS ---
FINAL REPORT TECHNIQUE: Color Doppler, duplex Doppler and cole scale sonography of the bilateral neck arterial vasculature was performed. Velocities were measured in the carotid arteries. Stenosis evaluation based on the validated velocity criteria. CLINICAL HISTORY: YRN, Smoker, Obesity FINDINGS: The peak systolic velocity of the right common carotid artery is 105 cm/s. The peak systolic velocity of the right internal carotid artery is 123 cm/s and end diastolic velocity 51 cm/s. The ICA/CCA ratio is 1.50. There is no evidence of plaque. The right external carotid artery is patent. The right vertebral artery is patent with antegrade flow. The peak systolic velocity of the left common carotid artery is 117 cm/s. The peak systolic velocity of the left internal carotid artery is 159 cm/s and end diastolic velocity 69 cm/s. The ICA/CCA ratio is 1.48. There is no evidence of plaque. The left external carotid artery is patent.The left vertebral artery is patent with antegrade flow. IMPRESSION: Less than 50% bilateral carotid stenoses. Bilateral patent vertebral arteries with antegrade flow. If indicated, CTA or MRA could further evaluate. Reviewed, Interpreted and Dictated by Delfino Costa III, MD Transcribed by Soco Edmondson Authenticated and [facility]
== END ==
PROVIDERS: PCP Nurse Practitioner Family; Visit Provider Internal Medicine Cardiovascular Disease
DX: R07.89 Other chest pain (principal); I65.23 Occlusion and stenosis of bilateral carotid arteries; I10 Essential (primary) hypertension; G47.33 Obstructive sleep apnea (adult) (pediatric)
CPT/HCPCS: 93880

== ENCOUNTER → 2022-01-27 10:39 | Outpatient (POV) | payer OTHER, SELFPAY ==
[2022-01-27 11:00] VITALS: BP 144/92; PULSE 70; RESP 18; TEMP 37.1; O2SAT 70; BMI 37.3
--- NOTE | 2022-01-27 12:50 | HMH.PAINSOAP ---
[facility] Pain Management SOAP Note Subjective:: Patient is a pleasant 46-year-old female who is here for medication refill and follow-up. Patient is currently being treated for degenerative disc disease of the lumbar spine with lumbar radiculopathy symptoms. Patient is being managed with gabapentin 800 mg 4 times a day that is prescribed by this clinic. Patient is also on Suboxone therapy by another provider for several years now. Patient denies any side effects from the medications. Patient denies any changes to the location and type of pain. Patient also has a [employer] spinal cord stimulator. She has been having issues charging this generator. One of the representatives will reach out to her to evaluate her stimulator. Rates pain as 6 out of 10. [facility] number [phone] with an active morphine equivalent 0. Drug screens have been reviewed and appropriate. When we last saw this patient, we were treating her for left-sided sacroiliitis. She had a left SI injection on August 14, 2021 that provided significant relief of 70 to 80% for about a month. We discussed with her before that she is a good candidate for sacroiliac joint stabilization procedure. Review of Systems: General: No recent weight changes, no fever, no sleep disturbances Respiratory: No cough, no shortness of air, no recurring pulmonary infections Cardiovascular/peripheral vascular: No chest pain, no palpitations, no edema, no shortness of breath Gastrointestinal: No new onset incontinence, normal bowel movements reported Genitourinary: No new onset incontinence Musculoskeletal: Low back pain, left leg pain Psychiatric: [Normal mood/affect] Neurological: [Denies weakness in extremities], [denies balance issues] Objective:: Physical Exam: General: Alert and oriented x3, no acute distress, pleasant and cooperative Lungs: Respirations even and unlabored, symmetrical chest expansion Eyes: PERRL Musculoskeletal: Flexion and extension of lumbar [spine] somewhat guarded secondary to pain, [antalgic gait noted]; left SI is positive for CHRISTY, Riley's, Humboldt's, Gaenslen's, compression, and distraction. Neurological: Speech clear, no gross sensory deficit Assessment:: Degenerative disease of lumbar spine with lumbar radiculopathy symptoms, left-sided sacroiliitis Plan:: We will continue the patient's gabapentin 800 mg 4 times a day and provide the patient with 3 months worth of refill. We will also schedule the patient for a left SI injection. Previously, we have discussed with this patient that she is a good candidate for sacroiliac transposition procedure. She states that she has a trip in the [facility] in April so she wants to postpone any surgeries until after she comes back. One of the [employer] representatives will reach out to her to evaluate her [employer] spinal cord stimulator. Patient has been instructed to contact the clinic with any concerns before the next appointment. Dr. Kohler has reviewed this note and agrees with this plan of care. This note was dictated using voice recognition software and make contain errors or omissions. [facility] History Medical History: Reports:: Anxiety, Cancer, Carotid Stenosis, Congestive Heart Failure, Coronary Artery Disease, Depression, Gastroesophageal Reflux Disease(GERD), Hyperlipidemia, Hypertension Denies:: Diabetes Mellitus Type 1, Diabetes Mellitus Type 2, Internal Pacemaker, MRSA, Seizures *Have you ever received a pneumonia vaccine?: No *Have you received a flu vaccine this season?: Yes Other Medical History: Reports: Anemia, Arthritis, Fibromyalgia, Hormone Therapy, Other. Denies: Blood Transfusion Reaction Laterality Cases: Left: Arthroscopy Shoulder, Bilateral: Other Other Surgeries: Yes: Appendectomy, Cancer Surgery, Cardiac Catheterization, Cholecystectomy, Hysterectomy-Total, Hysterectomy-Partial, Other. No: Pacemaker Amputation: No Fractures: Yes (femur) - *Social History Smoking Status: Current every d
== END ==
PROVIDERS: Visit Provider Student in an Organized Health Care Education/Training Program
DX: M51.16 Intervertebral disc disorders with radiculopathy, lumbar region (principal); M46.1 Sacroiliitis, not elsewhere classified
CPT/HCPCS: 99212; G0463

== ENCOUNTER → 2022-02-13 18:02 | Outpatient (CLI) | payer OTHER, SELFPAY ==
--- NOTE | 2022-02-18 14:56 | PC.NURSE ---
HST [id number] 01/[birth year]03[birth year]09/22
== END ==
PROVIDERS: PCP Emergency Medicine; Visit Provider Internal Medicine Cardiovascular Disease
DX: G47.33 Obstructive sleep apnea (adult) (pediatric) (principal); G47.10 Hypersomnia, unspecified; R06.83 Snoring; R51.9 Headache, unspecified
CPT/HCPCS: 95806

== ENCOUNTER 2022-03-18 10:32 | Day surgery (SDC) | payer OTHER, SELFPAY ==
[2022-03-18 10:41] VITALS: BP 130/83; PULSE 60; RESP 18; TEMP 35.8; O2SAT 96; BMI 35.9
--- NOTE | 2022-03-18 10:52 | HMH.PMPROC ---
- Procedure Date: 03/18/22 Time: 10:52 Anesthesiologist:: Leonides Centeno CRNA Complications:: None Pre-procedure Diagnosis:: Left sacroiliitis Post-procedure Diagnosis:: Same Indications for Procedure:: Very pleasant 46-year-old female that comes to our clinic today for left SI joint injection. Patient has had left SI joint injection in the past with significant improvement. She rates her pain 7/10. Procedure Details:: Procedure: Left sacroiliac injection under fluoroscopy Informed consent was obtained and the risk and benefits of the procedure were explained to the patient.~ The patient was taken to the procedure room and noninvasive monitors were placed including noninvasive blood pressure cuff and pulse oximeter.~ The patient was placed prone on the procedure table.~ The~ left hip was cleansed using Betadine as a cleansing solution.~ C-arm fluorosocpy was used to view the left SI joint.~ The skin and subcutaneous tissues were anesthetized using Lidocaine 1.5% and a 25-gauge needle.~ After this, a 22-gauge spinal needle was inserted under fluoroscopic guidance into the inferior aspect of the left SI joint.~ Omnipaque dye was injected and a good spread was seen throughout the joint.~ After this, approximately 5 mL of bupivacaine 0.25% and Depo-Medrol 40 mg was incrementally injected into the sacroiliac joint.~ The patient tolerated the procedure well with no complications.~ The patient was observed in the Pain Clinic for a period of 30-45 minutes, then discharged home neurologically intact.~ Plan and Disposition:: Patient was discharged without incident.
[2022-03-18 11:00] VITALS: BP 119/86; PULSE 55; RESP 20; O2SAT 95
== END 2022-03-18 11:00 | disposition home or self-care (01) ==
LOC: SC.PAINP 10:33
PROVIDERS: PCP Emergency Medicine; Visit Provider Nurse Anesthetist, Certified Registered
DX: M46.1 Sacroiliitis, not elsewhere classified (principal)
CPT/HCPCS: 27096; G0260; J1040

== ENCOUNTER → 2022-04-02 09:21 | Outpatient (POV) | payer OTHER, SELFPAY ==
[2022-04-02 09:37] VITALS: BP 133/84; PULSE 62; RESP 20; BMI 34.2
--- NOTE | 2022-04-02 09:56 | EXP.PAIN.SOA ---
[facility] Pain Management SOAP Note Subjective:: Patient is a pleasant 46-year-old female that presents today for follow-up of left SI injection on 03/18/2022. We are currently treating the patient for degenerative disc disease of lumbar spine with lumbar radiculopathy symptoms, left-sided sacroiliitis. Patient states that she has had about 40% improvement since this injection. Patient states that she is very active and this may be affecting how much relief she is getting. Patient states her pain today is a 6 out of 10. She states the pain is all in her low back that radiates into her bilateral lower extremities. Patient denies any new trauma or injury to the site. She denies any change to the location or type of pain she experiences. She states this pain is a sharp, tingling, needlelike sensation that radiates into her legs. Patient does have a [employer] spinal cord stimulator however she states she has been having issues with this and is unable to get it to charge. Patient states she does manage her pain with ibuprofen as needed and using a heating pad with moderate improvement of her symptoms. She is also managed with gabapentin 800 mg 4 times a day. She denies any side effects from this medication. She states this medication is adequately managing her pain. She did state at today's visit that she is out of refills on this medication. She also uses a compounding cream that she states provides significant yet temporary improvement of her symptoms. She states this prescription runs out in April. Patient is on Suboxone therapy by Dr. Keyla Cano. Patient also states that at her previous visit the provider did mention about a SI stabilization procedure that she may be a candidate for. She is still interested however she wants to wait until after she returns home from a cruise that she is scheduled to leave on for next week. Her Leonid is [id number]. It has been reviewed and appropriate. Review of Systems: General: No recent weight changes, no fever, no sleep disturbances Respiratory: No cough, no shortness of air, no recurring pulmonary infections Cardiovascular/peripheral vascular: No chest pain, no palpitations, no edema, no shortness of breath Gastrointestinal: No new onset incontinence, normal bowel movements reported Genitourinary: No new onset incontinence Musculoskeletal: Low back pain, bilateral leg pain Psychiatric: [Normal mood/affect] Neurological: [Denies weakness in extremities], [denies balance issues] Objective:: Physical Exam: General: Alert and oriented x3, no acute distress, pleasant and cooperative Lungs: Respirations even and unlabored, symmetrical chest expansion Eyes: PERRL Musculoskeletal: Flexion and extension of lumbar [spine] somewhat guarded secondary to pain, [antalgic gait noted] Neurological: Speech clear, no gross sensory deficit Assessment:: Degenerative disc disease of lumbar spine with lumbar radiculopathy symptoms, left-sided sacroiliitis Plan:: Patient has had moderate relief from her left SI symptoms since having her injection. She does continue to have significant pain in her low back and bilateral extremities. I have discussed with the patient regarding contacting [employer] to see if I can get one of the representatives to get in contact with her and reprogram/evaluate her stimulator. I will provide refills on the patient's gabapentin 800 mg 4 times a day with a 1 month supply. I will also reorder her compounding cream at today's visit patient will follow-up in 1 month following her return from the [facility]. I did also give her educational handouts on the cornerloc procedure. Patient will return to clinic in 1 month for follow-up and reevaluation of symptoms. Patient has been instructed to contact the clinic with any concerns before the next appointment. Dr. Kohler has reviewed this note and agrees with this plan of care. This note was dictated using voice recognition software and make contain errors or
== END | disposition home or self-care (01) ==
PROVIDERS: PCP Family Medicine; Visit Provider Nurse Practitioner Family
DX: M51.16 Intervertebral disc disorders with radiculopathy, lumbar region (principal); M46.1 Sacroiliitis, not elsewhere classified
CPT/HCPCS: 99212; G0463

== ENCOUNTER → 2022-04-29 10:29 | Outpatient (POV) | payer OTHER, SELFPAY ==
[2022-04-29 10:45] VITALS: BP 153/94; PULSE 70; RESP 20; TEMP 36.4; O2SAT 95; BMI 34.2
--- NOTE | 2022-04-29 11:16 | EXP.PAIN.SOA ---
[facility] Pain Management SOAP Note Subjective:: Patient is a pleasant 46-year-old female that presents today for follow-up.? We are currently treating the patient for degenerative disc disease of lumbar spine with lumbar radiculopathy symptoms, left-sided sacroiliitis.? Patient states she did have about 40 to 50% improvement following her last injection and gave her 2 weeks worth of relief. Patient states today her pain is a 7 out of 10 and primarily in her left SI area. Patient denies any new trauma or injury to the site.? She denies any change to the location or type of pain she experiences.? She states this pain is a sharp, tingling, needlelike sensation that radiates into her legs.? Patient does have a [employer] spinal cord stimulator.? Patient states she does manage her pain with ibuprofen as needed and using a heating pad with moderate improvement of her symptoms.? She is also managed with gabapentin 800 mg 4 times a day.? She denies any side effects from this medication.? She states this medication is adequately managing her pain.? She also uses a compounding cream that she states provides significant yet temporary improvement of her symptoms.? Patient is on Suboxone therapy by Dr. Keyla Cano. Her Leonid is [id number].? It has been reviewed and appropriate. Review of Systems: General: No recent weight changes, no fever, no sleep disturbances Respiratory: No cough, no shortness of air, no recurring pulmonary infections Cardiovascular/peripheral vascular: No chest pain, no palpitations,? no edema, no shortness of breath Gastrointestinal: No new onset incontinence, normal bowel movements reported Genitourinary: No new onset incontinence Musculoskeletal: Low back pain left side, left leg pain Psychiatric: [Normal mood/affect] Neurological: [Denies weakness in extremities], [denies balance issues] Objective:: Physical Exam: General: Alert and oriented x3, no acute distress, pleasant and cooperative Lungs: Respirations even and unlabored, symmetrical chest expansion Eyes: PERRL Musculoskeletal: Flexion and extension of lumbar [spine] somewhat guarded secondary to pain, [antalgic gait noted]. Point tenderness along left SI. Left Carol's, Riley's, Gaenslen's, compression distraction exam Neurological: Speech clear,? no gross sensory deficit Assessment:: Degenerative disc disease of lumbar spine with lumbar radiculopathy symptoms, left-sided sacroiliitis Plan:: Patient has had significant improvement of her left SI following her last injection however this only provided 2 weeks worth of relief. Patient had point tenderness along her left SI joint and a positive left Carol's, Riley's, Gaenslen's, compression and distraction exam during today's visit. I have discussed with the patient regarding the SI stabilization procedure. Risk and benefits were discussed with the patient. At her previous visit she was given educational handouts on the cornerloc procedure.? Patient would like to proceed forward with this plan of care. We will submit to insurance for a left SI stabilization procedure and contact the patient once we have approval. Patient has been instructed to contact the clinic with any concerns before the next appointment.? Dr. Kohler has reviewed this note and agrees with this plan of care.? This note was dictated using voice recognition software and make contain errors or omissions. [facility] Medical History Carotid artery stenosis Diastolic dysfunction Edema Fibromyalgia Insomnia Left leg pain Neuropathy Social History (Updated 04/08/22 @ 08:55 by JOSE Garcia) Smoking Status: Former smoker pack-years: 23 how long ago did patient quit smokin weeks as of 04/08/22 (still vaping but trying to stop) second hand exposure: Yes alcohol intake: never counseling provided: none substance use type: former substance user and marijuana current occupational status: othe
== END ==
PROVIDERS: PCP Family Medicine; Visit Provider Nurse Anesthetist, Certified Registered
DX: M51.16 Intervertebral disc disorders with radiculopathy, lumbar region (principal); M46.1 Sacroiliitis, not elsewhere classified
CPT/HCPCS: 99212; G0463

== ENCOUNTER → 2022-06-02 13:04 | Outpatient (POV) | payer OTHER, SELFPAY ==
[2022-06-02 13:14] VITALS: BP 124/79; PULSE 61; RESP 18; TEMP 36.7; O2SAT 95; BMI 34.2
--- NOTE | 2022-06-02 13:56 | EXP.PAIN.SOA ---
[facility] Pain Management SOAP Note Subjective:: Patient is a pleasant 46-year-old female who presents today for insurance denial to SI stabilization. We are currently treating the patient for degenerative disc disease of lumbar spine with lumbar radiculopathy symptoms, sacroiliitis. Today the patient rates her pain a 7 out of 10. She states the pain is primarily in her low back along her left side into her left leg and her right knee. Patient denies any new trauma or injury. She denies any change in location or type of pain she experiences. Patient states the pain is a sharp, tingling sensation that is worse with increased activity. Patient does have a [employer] spinal cord stimulator in place. Patient states in the past she has gotten right knee injections from Dr. Ramirez however she feels this is because worsening of her pain symptoms. She frequently has swelling and difficulty ambulating due to her right knee pain in combination with her sciatica issues. Patient does use [id number] ibuprofen as needed along with a heating pad with moderate improvement of her symptoms. Patient is also prescribed a compounding cream that helps give significant relief however only temporary. She is currently managed with gabapentin 800 mg 4 times a day. Patient denies any side effects from this medication. She states this medication does help manage her pain symptoms. She is also on Suboxone therapy by Dr. Keyla Cano. Her Leonid is [id number]. It is been reviewed and appropriate. Review of Systems: General: No recent weight changes, no fever, no sleep disturbances Respiratory: No cough, no shortness of air, no recurring pulmonary infections Cardiovascular/peripheral vascular: No chest pain, no palpitations, no edema, no shortness of breath Gastrointestinal: No new onset incontinence, normal bowel movements reported Genitourinary: No new onset incontinence Musculoskeletal: Low back pain, right knee pain Psychiatric: [Normal mood/affect] Neurological: [Denies weakness in extremities], [denies balance issues] Objective:: Physical Exam: General: Alert and oriented x3, no acute distress, pleasant and cooperative Lungs: Respirations even and unlabored, symmetrical chest expansion Eyes: PERRL Musculoskeletal: Flexion and extension of lumbar [spine] somewhat guarded secondary to pain, [antalgic gait noted]. Point tenderness along left SI and positive left Carol's, Riley's, Gaenslen's, compression and distraction exam Neurological: Speech clear, no gross sensory deficit Skin: Right knee has significant swelling/edema Assessment:: Degenerative disc disease of lumbar spine with lumbar radiculopathy symptoms, sacroiliitis, right knee pain Plan:: Patient is experiencing significant pain in her low back and right knee. Patient did have limited range of motion of her lumbar spine along with positive left Carol's, Riley's, Gaenslen's, compression and distraction exam. She had point tenderness along her left SI. I have discussed with the patient regarding her denial for the SI stabilization procedure. We will order x-rays of her bilateral hips and pelvis to exclude any other serious issues. I will also order physical therapy for her low back pain and knee pain. I will refill the patient's gabapentin 800 mg 4 times a day and provide a 1 month supply of this medication I will also send a referral to Dr. Andrey Mckeon for her right knee pain. We will follow-up with the patient in 1 month. Patient will return to clinic in 1 month for reevaluation of symptoms, medication refill and plan of care. At her next appointment we will look into reapplying for the SI stabilization procedure on the left side if indicated. Patient has been instructed to contact the clinic with any concerns before the next appointment. Dr. Kohler has reviewed this note and agrees with this plan of care. This note was dictated using voice recognition software and make contain errors or omissions. [facility]
== END | disposition home or self-care (01) ==
PROVIDERS: PCP Family Medicine; Visit Provider Nurse Practitioner Family
DX: M51.16 Intervertebral disc disorders with radiculopathy, lumbar region (principal); M46.1 Sacroiliitis, not elsewhere classified; M25.561 Pain in right knee; Z79.899 Other long term (current) drug therapy
CPT/HCPCS: 99212; G0463

== ENCOUNTER → 2022-06-13 10:25 | Outpatient (CLI) | payer OTHER, SELFPAY ==
--- NOTE | 2022-06-13 10:33 | XR_ITS ---
FINAL REPORT CLINICAL HISTORY: LBP,YOVANI HIP PAIN COMPARISON: 01/09/2020 FINDINGS: RIGHT HIP Two views of the right hip including an AP pelvis demonstrate no acute fracture or dislocation. The right hip joint space is preserved. There is mild degenerative change in the lower lumbar spine. The visualized bony structures are well aligned. No soft tissue abnormality is seen. IMPRESSION: No acute bony abnormality. Reviewed, Interpreted and Dictated by Delfino Costa III, MD Transcribed by Kallie Catalan Authenticated and [facility]
--- NOTE | 2022-06-13 10:33 | XR_ITS ---
FINAL REPORT CLINICAL HISTORY: LBP,YOVANI HIP PAIN COMPARISON: 01/09/2020 FINDINGS: LEFT HIP Two views of the left hip demonstrate no acute fracture or dislocation. There are postoperative changes in the femur. There are mild degenerative changes in the left hip. The visualized bony structures are well aligned. No soft tissue abnormality is seen. IMPRESSION: Mild degenerative change with no acute bony abnormality, similar to the prior exam. Reviewed, Interpreted and Dictated by Delfino Costa III, MD Transcribed by Kallie Catalan Authenticated and . [facility]
== END ==
PROVIDERS: PCP Family Medicine; Visit Provider Nurse Practitioner Family
DX: M54.50 Low back pain, unspecified (principal); M25.552 Pain in left hip; M25.551 Pain in right hip; R10.2 Pelvic and perineal pain; M25.561 Pain in right knee
CPT/HCPCS: 73502

== ENCOUNTER → 2022-06-24 12:53 | Outpatient (POV) | payer OTHER, SELFPAY ==
--- NOTE | 2022-06-24 13:12 | EXP.PAIN.SOA ---
[facility] Pain Management SOAP Note Subjective:: Patient is a pleasant 46-year-old female who presents today for follow-up and medication refill. We are currently treating the patient for degenerative disc disease of lumbar spine with lumbar radiculopathy symptoms, sacroiliitis, bilateral hip pain, right knee pain. Today she rates her pain a 8 out of 10. She states the pain is primarily in her right knee as well as her bilateral hips. Patient denies any new trauma or injury. Patient denies any change in location or type of pain she experiences. Patient states she continues to have sharp, achy, throbbing sensations in her right knee with increased swelling. At our last visit we did order x-rays of her bilateral hips and right knee however the patient did not get these done yet. She was going today after our visit. I also sent in a referral to Dr. Andrey Mckeon for her right knee pain and she has not heard from their office at this point. Patient is managed with gabapentin 800 mg 4 times a day. Patient denies any side effects from this medication. She states this medication does help some of her pain symptoms. She is requesting a refill at today's visit. Patient is also on Suboxone therapy by Keyla Cano and phentermine from Dr. Taylor's office. Patient has been going to physical therapy for her bilateral hip pain however she states that it is causing increased pain in her right knee with minimal improvement in her hips. Her Leonid is [id number]. It has been reviewed and appropriate. Review of Systems: General: No recent weight changes, no fever, no sleep disturbances Respiratory: No cough, no shortness of air, no recurring pulmonary infections Cardiovascular/peripheral vascular: No chest pain, no palpitations, no edema, no shortness of breath Gastrointestinal: No new onset incontinence, normal bowel movements reported Genitourinary: No new onset incontinence Musculoskeletal: Bilateral hip pain, right knee pain Psychiatric: [Normal mood/affect] Neurological: [Denies weakness in extremities], [denies balance issues] Objective:: Physical Exam: General: Alert and oriented x3, no acute distress, pleasant and cooperative Lungs: Respirations even and unlabored, symmetrical chest expansion Eyes: PERRL Musculoskeletal: Flexion and extension of lumbar [spine] somewhat guarded secondary to pain, [antalgic gait noted] Neurological: Speech clear, no gross sensory deficit Assessment:: Degenerative disc disease lumbar spine with lumbar radiculopathy symptoms, sacroiliitis, bilateral hip pain, right knee pain Plan:: Patient continues to experience significant pain in her right knee and bilateral hips. Patient did have limited range of motion of her lumbar spine during today's visit. I have counseled the patient to stop physical therapy at this time due to her worsening right knee pain and swelling. We will send a copy of her imaging to Dr. Mckeon's office regarding the referral. I have also counseled the patient that if she does not hear from his office with we will send an additional referral to Dr. Ross Altman's office. At our previous visit we did discuss about reapplying for the SI stabilization procedure on the left side that had been previously been denied by insurance however with her worsening right knee pain we will wait. I will refill the patient's gabapentin 800 mg 4 times a day and provide a 1 month supply of this medication. We will follow-up with the patient in 1 month. Patient will return to clinic in 1 month for reevaluation of symptoms, medication refill and follow-up. Patient has been instructed to contact the clinic with any concerns before the next appointment. Dr. Kohler has reviewed this note and agrees with this plan of care. This note was dictated using voice recognition software and make contain errors or omissions. [facility] Medical History Carotid artery stenosis Diastolic dysfunction Edema
[2022-06-24 13:34] VITALS: BP 143/91; PULSE 70; RESP 18; O2SAT 97; BMI 36.9
== END | disposition home or self-care (01) ==
PROVIDERS: PCP Family Medicine; Visit Provider Nurse Practitioner Family
DX: M51.16 Intervertebral disc disorders with radiculopathy, lumbar region (principal); M46.1 Sacroiliitis, not elsewhere classified; M25.561 Pain in right knee
CPT/HCPCS: 99212; G0463

== ENCOUNTER → 2022-06-24 13:16 | Outpatient (CLI) | payer OTHER, SELFPAY ==
--- NOTE | 2022-06-24 13:21 | XR_ITS ---
FINAL REPORT CLINICAL HISTORY: SWOLLEN,RT KNEE PAIN,FLUID FINDINGS: RIGHT KNEE 3 views of the right knee were obtained. There is no acute fracture or dislocation. Visualized joint spaces are normally aligned. There is mild narrowing of the medial and lateral compartment joint spaces. There is a small joint effusion. IMPRESSION: No acute bony abnormality. Mild medial and lateral compartment joint space narrowing with a small joint effusion. Reviewed, Interpreted and Dictated by Jean West MD Transcribed by Kallie Catalan Authenticated and [facility]
== END ==
PROVIDERS: PCP Family Medicine; Visit Provider Nurse Practitioner Family
DX: M25.561 Pain in right knee (principal)
CPT/HCPCS: 73562

== ENCOUNTER 2022-06-25 13:00 | Outpatient (RCR) | payer OTHER, SELFPAY | END 2022-06-25 13:05 | disposition home or self-care (01) | LOC: PT 13:00 | PROVIDERS: PCP Family Medicine; Visit Provider Nurse Practitioner Family | DX: M54.50 Low back pain, unspecified (principal); M25.552 Pain in left hip; M25.551 Pain in right hip; M25.561 Pain in right knee | CPT/HCPCS: 97010; 97014; 97110; 97163; G0283 ==

== ENCOUNTER → 2022-07-15 14:03 | Outpatient (CLI) | payer OTHER, SELFPAY | PROVIDERS: PCP Family Medicine; Visit Provider Family Medicine | DX: R39.9 Unspecified symptoms and signs involving the genitourinary system (principal) | CPT/HCPCS: 87086 ==

== ENCOUNTER → 2022-08-25 12:33 | Outpatient (POV) | payer OTHER, SELFPAY ==
[2022-08-25 12:39] VITALS: BP 143/83; PULSE 68; RESP 18; O2SAT 98; BMI 36.4
--- NOTE | 2022-08-25 13:04 | EXP.PAIN.SOA ---
[facility] Pain Management SOAP Note Subjective:: Patient is a pleasant 46-year-old female who presents today for medication refill and follow-up. We are currently treating the patient for degenerative disc disease of lumbar spine with lumbar radiculopathy symptoms, sacroiliitis, bilateral hip pain, right knee pain. today the patient rates her pain a 7 out of 10. Patient denies any new trauma or injury. Patient denies any change location or type of pain she experiences. Patient states she has been to see Dr. Mckeon since her last visit and he did tell her that she was not a surgical candidate. Patient has had pain improvement following losing weight. She is currently prescribed gabapentin 800 mg 4 times a day. Patient denies any side effects from this medication. She states this medication does help manage her pain symptoms. She is requesting a refill at today's visit. She is also on phentermine and Suboxone therapy from outside providers. Her Leonid is [id number]. Its been reviewed and appropriate. Review of Systems: General: No recent weight changes, no fever, no sleep disturbances Respiratory: No cough, no shortness of air, no recurring pulmonary infections Cardiovascular/peripheral vascular: No chest pain, no palpitations, no edema, no shortness of breath Gastrointestinal: No new onset incontinence, normal bowel movements reported Genitourinary: No new onset incontinence Musculoskeletal: Low back pain Psychiatric: [Normal mood/affect] Neurological: [Denies weakness in extremities], [denies balance issues] Objective:: Physical Exam: General: Alert and oriented x3, no acute distress, pleasant and cooperative Lungs: Respirations even and unlabored, symmetrical chest expansion Eyes: PERRL Musculoskeletal: Flexion and extension of lumbar [spine] somewhat guarded secondary to pain, [antalgic gait noted] Neurological: Speech clear, no gross sensory deficit ORT score updated with moderate risk Personal history of prescription drug abuse History of bipolar and depression Assessment:: Degenerative disc disease of lumbar spine with lumbar radiculopathy symptoms, sacroiliitis, bilateral hip pain, right knee pain Plan:: Patient continues to experience pain in her low back with radiating symptoms into her legs however she is doing well with her current medication regimen. I will refill the patient's gabapentin 800 mg 4 times a day and provide a 1 month supply of this medication. Patient will return to clinic in 1 month for reevaluation of symptoms, medication refill and follow-up. Patient has been instructed to contact the clinic with any concerns before the next appointment. Dr. Kohler has reviewed this note and agrees with this plan of care. This note was dictated using voice recognition software and make contain errors or omissions. [facility] Disclaimer: The information contained in this section may have been updated after the patient was seen, as this information can be updated by other users. Medical History Carotid artery stenosis Diastolic dysfunction Edema Fibromyalgia Insomnia Left leg pain Neuropathy Social History Smoking Status: Former smoker pack-years: 23 how long ago did patient quit smokin weeks as of 04/08/22 (still vaping but trying to stop) second hand exposure: Yes alcohol intake: never counseling provided: none substance use type: former substance user and marijuana current occupational status: unemployed Travel in the last 8 weeks: None household members: spouse housing: house number of children: 2 current occupational exposures/hazards: No caffeine: No
== END | disposition home or self-care (01) ==
PROVIDERS: PCP Family Medicine; Visit Provider Nurse Practitioner Family
DX: M51.16 Intervertebral disc disorders with radiculopathy, lumbar region (principal); M46.1 Sacroiliitis, not elsewhere classified; M25.551 Pain in right hip; M25.552 Pain in left hip; M25.561 Pain in right knee
CPT/HCPCS: 99212; G0463

== ENCOUNTER → 2022-08-25 13:00 | Outpatient (CLI) | payer OTHER, SELFPAY ==
[2022-08-25 14:42] LABS: Amphetamine/Metha Screen,Urine Positive ng/ml (<1000); Barbiturates Screen,Urine Negative ng/ml (<200)
[2022-08-25 14:43] LABS: Benzodiazepines Screen,Urine Negative ng/ml (<200)
[2022-08-25 14:44] LABS: Cannabinoid Screen,Urine Negative ng/ml (<50); Cocaine Screen,Urine Negative ng/ml (<300)
[2022-08-25 14:45] LABS: Methadone Screen,Urine Negative ng/ml (<300); Opiate Screen,Urine Negative ng/ml (<300)
[2022-08-25 14:46] LABS: Phencyclidine Screen,Urine Negative ng/ml (<25)
[2022-08-29 10:52] LABS: Opiates Negative (Cutoff=100)
== END ==
PROVIDERS: PCP Family Medicine; Visit Provider Nurse Practitioner Family
DX: Z79.891 Long term (current) use of opiate analgesic (principal)
CPT/HCPCS: 80305; 80361; 80365; G0480

== ENCOUNTER → 2022-10-06 14:22 | Outpatient (POV) | payer OTHER, SELFPAY ==
--- NOTE | 2022-10-06 15:02 | EXP.PAIN.SOA ---
[facility] Pain Management SOAP Note Subjective:: Patient is a pleasant 46-year-old female who presents today for medication refill and follow-up. We are currently treating the patient for degenerative disc disease of lumbar spine with lumbar radiculopathy symptoms, sacroiliitis, bilateral hip pain, right knee pain. Today she rates her pain an 8 out of 10. Patient denies any new trauma or injury. Patient denies any change location or type of pain she experiences. Patient continues to have pain in her low back and right knee. Patient states she has also been having some swelling in the right knee. Patient did go to Dr. Mckeon here at [facility] for evaluation for possible surgical intervention however she states that he is just recommending physical therapy. Patient is interested in a second opinion. Patient does describe her pain as an aching, throbbing sensation that is worse with increased activity. Patient is currently managed with gabapentin 800 mg 4 times a day. Patient denies any side effects from this medication. She is also on phentermine and Suboxone therapy from outside providers. Patient does have a [employer] spinal cord stimulator in place. Her Leonid is [id number]. Its been reviewed and appropriate. Review of Systems: General: No recent weight changes, no fever, no sleep disturbances Respiratory: No cough, no shortness of air, no recurring pulmonary infections Cardiovascular/peripheral vascular: No chest pain, no palpitations, no edema, no shortness of breath Gastrointestinal: No new onset incontinence, normal bowel movements reported Genitourinary: No new onset incontinence Musculoskeletal: Low back pain, right knee pain Psychiatric: [Normal mood/affect] Neurological: [Denies weakness in extremities], [denies balance issues] Objective:: Physical Exam: General: Alert and oriented x3, no acute distress, pleasant and cooperative Lungs: Respirations even and unlabored, symmetrical chest expansion Eyes: PERRL Musculoskeletal: Flexion and extension of right knee, lumbar [spine] somewhat guarded secondary to pain, [antalgic gait noted] Neurological: Speech clear, no gross sensory deficit Assessment:: Degenerative disc disease of lumbar spine with lumbar radiculopathy symptoms, sacroiliitis, bilateral hip pain, right knee pain Plan:: Patient is experiencing significant pain in her right knee with limited range of motion. I will order the patient a CT without contrast of her right knee. Patient is is unable to have a MRI due to having a [employer] spinal cord stimulator in place. I will also send a referral to [facility] for a second opinion for possible surgical interventions. I have discussed with the patient that she may benefit from injections in the future such as an intra-articular knee injection or genicular nerve block. I will refill the patient's gabapentin 800 mg 4 times a day and provide a 1 month supply of this medication. Patient will follow-up back in our office following imaging for reevaluation of symptoms and plan of care. Patient has been instructed to contact the clinic with any concerns before the next appointment. Dr. Kohler has reviewed this note and agrees with this plan of care. This note was dictated using voice recognition software and make contain errors or omissions. [facility] Disclaimer: The information contained in this section may have been updated after the patient was seen, as this information can be updated by other users. Medical History Carotid artery stenosis Diastolic dysfunction Edema Fibromyalgia Insomnia Left leg pain Neuropathy Social History Smoking Status: Former smoker pack-years: 23 how long ago did patient quit smokin weeks as of 04/08/22 (still vaping but trying to stop) second hand exposure: Yes alcohol intake: never counseling provided: none substance use ty
[2022-10-06 15:20] VITALS: BP 123/78; PULSE 70; RESP 18; O2SAT 98; BMI 35.7
== END | disposition home or self-care (01) ==
PROVIDERS: PCP Family Medicine; Visit Provider Nurse Practitioner Family
DX: M51.16 Intervertebral disc disorders with radiculopathy, lumbar region (principal); M46.1 Sacroiliitis, not elsewhere classified; M25.551 Pain in right hip; M25.552 Pain in left hip; M25.561 Pain in right knee
CPT/HCPCS: 99212; G0463

== ENCOUNTER → 2022-10-22 14:01 | Outpatient (POV) | payer OTHER, SELFPAY ==
--- NOTE | 2022-10-22 14:43 | EXP.PAIN.SOA ---
[facility] Pain Management SOAP Note Subjective:: Patient is a pleasant 47-year-old female who presents today for medication refill and follow-up. We are currently treating the patient for degenerative disc disease of lumbar spine with lumbar radiculopathy symptoms, sacroiliitis, bilateral hip pain, right knee pain. Today she rates her pain a 7 out of 10. Patient denies any new trauma or injury. Patient states her pain is all in her right knee and her right hip. At our last visit we did schedule her for a CT without contrast of her right knee however she had a family emergency and could not make this appointment. Patient states that she did have a in her immediate family. She would like to reschedule this appointment. We had also sent a referral for orthopedics for second opinion for possible surgical interventions. She states that today she has not heard from this office at this time. Patient does state her pain is an achy, throbbing sensation that is worse with increased activity. She does state this does interfere with her activities of daily living such as cooking and cleaning and that she frequently has to take breaks due to her worsening knee pain. She does state that she notices frequent popping and locking sensations in her right knee. Patient is currently prescribed gabapentin 800 mg 4 times a day. Patient denies any side effects from this medication. She is also prescribed phentermine and Suboxone therapy from outside providers. Her Leonid is [id number]. Its been reviewed and appropriate. Review of Systems: General: No recent weight changes, no fever, no sleep disturbances Respiratory: No cough, no shortness of air, no recurring pulmonary infections Cardiovascular/peripheral vascular: No chest pain, no palpitations, no edema, no shortness of breath Gastrointestinal: No new onset incontinence, normal bowel movements reported Genitourinary: No new onset incontinence Musculoskeletal: Right hip pain, right knee pain Psychiatric: [Normal mood/affect] Neurological: [Denies weakness in extremities], [denies balance issues] Objective:: Physical Exam: General: Alert and oriented x3, no acute distress, pleasant and cooperative Lungs: Respirations even and unlabored, symmetrical chest expansion Eyes: PERRL Musculoskeletal: Flexion and extension of right knee, lumbar [spine] somewhat guarded secondary to pain, [antalgic gait noted]. Crepitus noted with range of motion of right knee Neurological: Speech clear, no gross sensory deficit Assessment:: Degenerative disc disease of lumbar spine with lumbar radiculopathy symptoms, sacroiliitis, bilateral hip pain, right knee pain Plan:: Patient continues to experience significant pain in her right knee and right hip with limited range of motion. Patient did have crepitus noted with range of motion exercises of her right knee during today's exam. I have discussed with the patient that she may benefit from a right knee genicular nerve block. Risk and benefits were explained to the patient and she would like to proceed forward with this plan of care. I will refill her gabapentin 800 mg 4 times a day and provide a 1 month supply of this medication. We will schedule the patient for a right genicular nerve block as well as reschedule her right knee CT scan without contrast. Once we have this imaging we will send this over to office for the referral. Patient has been instructed to contact the clinic with any concerns before the next appointment. Dr. Kohler has reviewed this note and agrees with this plan of care. This note was dictated using voice recognition software and make contain errors or omissions. [facility] Disclaimer: The information contained in this section may have been updated after the patient was seen, as this information can be updated by other users. Medical History Carotid artery stenosis Diastolic dysfunction Edema Fibromya
[2022-10-22 15:08] VITALS: BP 141/78; PULSE 96; RESP 20; BMI 36.9
== END | disposition home or self-care (01) ==
PROVIDERS: PCP Family Medicine; Visit Provider Nurse Practitioner Family
DX: M51.16 Intervertebral disc disorders with radiculopathy, lumbar region (principal); M46.1 Sacroiliitis, not elsewhere classified; M25.551 Pain in right hip; M25.552 Pain in left hip; M25.561 Pain in right knee
CPT/HCPCS: 99212; G0463

== ENCOUNTER → 2022-11-03 15:11 | Outpatient (CLI) | payer OTHER, SELFPAY ==
--- NOTE | 2022-11-03 15:15 | CT_ITS ---
FINAL REPORT TECHNIQUE: Thin section axial images were obtained through the right knee without contrast. Reconstruction images were obtained from the axial data. 3D imaging was also obtained. Exam was performed using dose reduction technique. CLINICAL HISTORY: RT KNEE PAIN FINDINGS: There is no acute fracture or dislocation. No acute osseous abnormality is identified. There is mild lateral patellar subluxation. There is tricompartmental degenerative joint disease which is most pronounced in the lateral compartment. There is a large joint effusion. The quadriceps and patellar tendons are intact. Remaining soft tissues are without acute abnormality. IMPRESSION: Mild lateral patellar subluxation. Tricompartmental degenerative joint disease, most pronounced in the lateral compartment. Large joint effusion. Reviewed, Interpreted and Dictated by Noa Jones MD Transcribed by Kallie Catalan Authenticated and . [facility]
== END ==
PROVIDERS: PCP Family Medicine; Visit Provider Nurse Practitioner Family
DX: M25.561 Pain in right knee (principal)
CPT/HCPCS: 73700

== ENCOUNTER 2022-11-11 14:12 | Day surgery (SDC) | payer OTHER, SELFPAY ==
[2022-11-11 14:26] VITALS: BP 160/98; PULSE 74; RESP 18; TEMP 36.6; O2SAT 100; BMI 36.4
[2022-11-11 14:50] VITALS: BP 172/86; PULSE 68; RESP 18; O2SAT 98
--- NOTE | 2022-11-11 14:50 | EXP.PAIN.PRO ---
Procedure Date: 11/11/22 Time: 14:50 Anesthesiologist:: Leonides Centeno CRNA Complications:: None Pre-procedure Diagnosis:: Chronic right knee pain. Arthritis right knee. Post-procedure Diagnosis:: Same. Indications for Procedure:: Very pleasant 47-year-old female that comes our clinic today for right genicular nerve block. Patient has right knee pain she describes constant, dull, aching. Patient has difficulty with ambulation due to the pain. She rates her pain 7/10 Procedure Details:: Right knee genicular block Informed consent was obtained and the risk and benefits of the procedure was explained to the patient. The patient was taken to the procedure room. The right knee was prepped using ChloraPrep. I placed 22-gauge needles into the area of the right superior medial genicular nerve, right superior lateral genicular nerve and right inferior medial genicular nerve. Needle placement was confirmed in AP and lateral views with dye. We then injected bupivacaine 0.25% 3 mL's and Depo-Medrol 25 mg into each area of the right superior medial genicular nerve, right superior lateral genicular nerve and right inferior medial genicular nerve. Patient tolerated the procedure well with no complications. Plan and Disposition:: Patient was discharged without incident.
== END 2022-11-11 14:50 | disposition home or self-care (01) ==
PROVIDERS: PCP Family Medicine; Visit Provider Nurse Anesthetist, Certified Registered
DX: M17.11 Unilateral primary osteoarthritis, right knee (principal); M25.561 Pain in right knee; G89.29 Other chronic pain
CPT/HCPCS: 64454; J1030

== ENCOUNTER → 2022-12-29 08:55 | Outpatient (POV) | payer OTHER, SELFPAY ==
--- NOTE | 2022-12-29 08:57 | EXP.PAIN.SOA ---
[facility] Pain Management SOAP Note Subjective:: Patient is a pleasant 47-year-old female who presents today for medication refill and right knee CT follow-up.? We are currently treating the patient for degenerative disc disease of lumbar spine with lumbar radiculopathy symptoms, sacroiliitis, bilateral hip pain, right knee pain.? Today she rates her pain a 6 out of 10.? Patient denies any new trauma or injury.? She states she continues to have pain in her right knee as well as her low back. She does describe this as an aching, throbbing sensation that is worse with increased activity. Patient states it does interfere with her ability to perform activities of daily living such as cooking and cleaning. Patient has tried ceet-gcu-nhebqle Tylenol and ibuprofen along with heat and ice and topicals and physical therapy with minimal improvement. Patient continues to do at home stretching and exercise on a daily basis. She does state that she has had her number changed since our last visit. We did previously try to send her for referral for an orthopedic doctor for second opinion of her right knee pain. Patient is currently prescribed gabapentin 800 mg 4 times a day.? Patient denies any side effects from this medication.? She is also prescribed phentermine and Suboxone therapy from outside providers.? Her Leonid is [id number].? Its been reviewed and appropriate. Review of Systems: General: No recent weight changes, no fever, no sleep disturbances Respiratory: No cough, no shortness of air, no recurring pulmonary infections Cardiovascular/peripheral vascular: No chest pain, no palpitations,? no edema, no shortness of breath Gastrointestinal: No new onset incontinence, normal bowel movements reported Genitourinary: No new onset incontinence Musculoskeletal: Right hip pain, right knee pain Psychiatric: [Normal mood/affect] Neurological: [Denies weakness in extremities], [denies balance issues] Objective:: Physical Exam: General: Alert and oriented x3, no acute distress, pleasant and cooperative Lungs: Respirations even and unlabored, symmetrical chest expansion Eyes: PERRL Musculoskeletal: Flexion and extension of lumbar [spine] somewhat guarded secondary to pain, [antalgic gait noted] Neurological: Speech clear, no gross sensory deficit TECHNIQUE: Thin section axial images were obtained through the right knee without contrast.? Reconstruction images were obtained from the axial data.? 3D imaging was also obtained.? Exam was performed using dose reduction technique. CLINICAL HISTORY: RT KNEE PAIN FINDINGS: There is no acute fracture or dislocation.? No acute osseous abnormality is identified.? There is mild lateral patellar subluxation.? There is tricompartmental degenerative joint disease which is most pronounced in the lateral compartment. There is a large joint effusion.? The quadriceps and patellar tendons are intact.? Remaining soft tissues are without acute abnormality. IMPRESSION: Mild lateral patellar subluxation.? ? Tricompartmental degenerative joint disease, most pronounced in the lateral compartment.? Large joint effusion. Reviewed, Interpreted and Dictated by Noa Jones MD Transcribed by Kallie Catalan Authenticated and [facility] \ FINDINGS: Normal alignment. The spinal cord ends at the L1 level. L1-L2 and L2-L3 show mild facet hypertrophic change. L3-L4: Mild disc desiccation with minimal bulging disc and facet hypertrophy. The disc is slightly eccentric toward the right as before with mild bilateral foraminal narrowing. L4-L5: Degenerative disc disease with bulging disc which is eccentric towards the left along with facet and ligamentum flavum hypertrophy with moderate left-sided foraminal narrowing. There is minimal anterolisthesis of L4.. L5-S1: Mild degenerative disc disease with minimal bulging disc. No disc herniation or canal stenosis. I
[2022-12-29 09:33] VITALS: BP 139/89; PULSE 75; RESP 18; O2SAT 98; BMI 36.4
== END | disposition home or self-care (01) ==
PROVIDERS: Visit Provider Nurse Practitioner Family
DX: M51.16 Intervertebral disc disorders with radiculopathy, lumbar region (principal); M46.1 Sacroiliitis, not elsewhere classified; M25.551 Pain in right hip; M25.552 Pain in left hip; M25.561 Pain in right knee
CPT/HCPCS: 99212; G0463

== ENCOUNTER 2023-01-06 09:41 | Day surgery (SDC) | payer OTHER, SELFPAY ==
[2023-01-06 09:48] VITALS: BP 142/92; PULSE 77; RESP 18; TEMP 36.6; O2SAT 100; BMI 37.2
[2023-01-06 10:10] VITALS: BP 145/89; PULSE 74; RESP 18; O2SAT 98
[2023-01-06 10:11] VITALS: BP 145/89; PULSE 74; RESP 18; O2SAT 97
[2023-01-06 10:15] VITALS: BP 157/86; PULSE 69; RESP 18; O2SAT 100
--- NOTE | 2023-01-06 10:25 | P.PCN_ITS ---
Procedure Date: 01/06/23 Time: 10:10 Anesthesiologist:: Leonides Centeno CRNA Complications:: None Pre-procedure Diagnosis:: Degenerative disc lumbar spine multilevels. Lumbar radiculopathy. Post-procedure Diagnosis:: Same. Indications for Procedure:: Patient is a very pleasant 47-year-old female comes our clinic today for L4-5 lumbar epidural steroid injection. Patient has a nonfunctioning spinal cord stimulator in the lumbar spine. She complains of low back pain as well as bilateral hip and leg radicular symptoms. She rates her pain 6/10. Procedure Details:: Procedure: Lumbar epidural steroid injection under fluoroscopy Informed consent was obtained and the risks and benefits of the procedure were explained to the patient. The patient was taken to the procedure room and noninvasive monitors placed, including noninvasive blood pressure cuff and pulse oximeter. The back was viewed using C-arm Fluoroscopy and prepped using Chloraprep as a cleansing solution and the L4-L5 interspace was palpated. Skin and subcutaneous tissues were anesthetized using lidocaine 1.5% and a 25-gauge needle. After this, an 18-gauge Touhy epidural needle was placed into the L4-L5 interspace and advanced using fluoroscopic guidance and loss of resistance to air until the epidural space was encountered. After confirmation of needle placement in the epidural space, with dye, a solution containing normal saline, 3 mL and Depo-Medrol 80 mg were incrementally injected into the lumbar epidural space. The patient tolerated the procedure well with no complications. The patient was observed in the Pain Clinic and then discharged home neurologica lly intact. Plan and Disposition:: Patient was discharged without incident.
== END 2023-01-06 10:15 | disposition home or self-care (01) ==
LOC: SC.PAINP 09:42
PROVIDERS: PCP Family Medicine; Visit Provider Nurse Anesthetist, Certified Registered
DX: M51.16 Intervertebral disc disorders with radiculopathy, lumbar region (principal)
CPT/HCPCS: 62323; J1040

== ENCOUNTER → 2023-01-13 23:17 | Outpatient (CLI) | payer OTHER, SELFPAY ==
[2023-01-13 20:00] LABS: Alanine Aminotransferase 38 U/L (12-78); Albumin Level 4.5 g/dl (3.5-5.0); Albumin/Globulin Ratio 1.5 (1.1-1.8); Alkaline Phosphatase 93 U/L (38-126); Anion Gap 18.9 mEq/L (5-15); Aspartate Amino Transferase 35 U/L (14-36); Bilirubin,Total 0.3 mg/dl (0.2-1.3); Blood Urea Nitrogen 14 mg/dl (7-17); Calcium 9.3 mg/dl (8.4-10.2); Carbon Dioxide 30 mmol/L (22.0-30.0); Chloride 96 mmol/L (98-107); Estimated Glomerular Filt Rate 108 ml/min (>60); GFR (African American) 130 ML/MIN (>60); Glucose 147 mg/dl (74-100); Potassium 3.9 mmoL/L (3.5-5.1); Sodium 141 mmol/L (136-145); Total Protein,Serum 7.5 g/dl (6.3-8.2)
[2023-01-13 20:03] LABS: Hemoglobin A1C 5.4 % (4.0-6.0)
[2023-01-13 20:27] LABS: Thyroid Stimulating Hormone 1.56 uIU/mL (0.465-4.68)
[2023-01-15 08:37] LABS: T4 (Thyroxine) 9.4 ug/dl (5.53-11.0)
== END ==
PROVIDERS: PCP Family Medicine; Visit Provider Family Medicine
DX: E78.5 Hyperlipidemia, unspecified (principal); Z79.899 Other long term (current) drug therapy
CPT/HCPCS: 80053; 83036; 84436; 84443

== ENCOUNTER → 2023-02-18 13:58 | Outpatient (POV) | payer OTHER, SELFPAY ==
--- NOTE | 2023-02-18 14:33 | EXP.PAIN.SOA ---
[facility] Pain Management SOAP Note Subjective:: Patient is a pleasant 47-year-old female who presents today for medication refill and follow-up of lumbar epidural steroid injection L4-L5 on 01/06/2023. We are currently treating the patient for degenerative disc disease of lumbar spine with lumbar radiculopathy symptoms, sacroiliitis, bilateral hip pain, right knee pain. Today she rates her pain a 7 out of 10. Patient denies any new trauma or injury. Patient denies any change to location or type of pain she experiences. Patient states that she did have approximately 50 to 60% improvement following this injection lasting up until about the last week. Patient states she was able to increase her activity with decreased pain symptoms and did feel overall better functionally. Today she does state that she is back to her baseline with increased pain in her low back and legs and describes it as an aching, throbbing sensation. She does state that it is interfering again with her ability to perform activities of daily living such as cooking and cleaning. She is currently managed with gabapentin 800 mg 4 times a day from our office and then phentermine and Suboxone therapy from outside providers. Her Leonid is [id number]. Its been reviewed and appropriate. Review of Systems: General: No recent weight changes, no fever, no sleep disturbances Respiratory: No cough, no shortness of air, no recurring pulmonary infections Cardiovascular/peripheral vascular: No chest pain, no palpitations, no edema, no shortness of breath Gastrointestinal: No new onset incontinence, normal bowel movements reported Genitourinary: No new onset incontinence Musculoskeletal: Low back pain, bilateral leg pain Psychiatric: [Normal mood/affect] Neurological: [Denies weakness in extremities], [denies balance issues] Objective:: Physical Exam: General: Alert and oriented x3, no acute distress, pleasant and cooperative Lungs: Respirations even and unlabored, symmetrical chest expansion Eyes: PERRL Musculoskeletal: Flexion and extension of lumbar [spine] somewhat guarded secondary to pain, [antalgic gait noted] Neurological: Speech clear, no gross sensory deficit Assessment:: Degenerative disc disease of lumbar spine with lumbar radiculopathy symptoms, sacroiliitis, bilateral hip pain, right knee pain Plan:: Patient is experiencing worsening pain in her low back and legs with limited range of motion. I have discussed with the patient that she may benefit from repeat lumbar epidural steroid injection. Risk and benefits were discussed with the patient and she would like to proceed forward with this plan of care. Patient is not on any blood thinners. Patient previously had a epidural back in December that did provide upwards of 60% improvement lasting until this last week. I will also refill her gabapentin 800 mg 4 times a day and provide a 1 month supply of this medication. We will schedule the patient for a lumbar epidural steroid injection L4-L5. Patient has been instructed to contact the clinic with any concerns before the next appointment. Dr. Kohler has reviewed this note and agrees with this plan of care. This note was dictated using voice recognition software and make contain errors or omissions. [facility] Disclaimer: The information contained in this section may have been updated after the patient was seen, as this information can be updated by other users. Medical History Carotid artery stenosis Diastolic dysfunction Edema Fibromyalgia Insomnia Left leg pain Neuropathy Family History Other No significant family history Social History Smoking Status: Former smoker pack-years: 23 how long ago did patient quit smokin weeks as of 04/08/22 (still vaping but trying to stop) second hand exposure: Yes alcohol intak
[2023-02-18 14:41] VITALS: BP 141/90; PULSE 80; RESP 18; O2SAT 94; BMI 38.7
== END | disposition home or self-care (01) ==
PROVIDERS: PCP Emergency Medicine; Visit Provider Nurse Practitioner Family
DX: M51.16 Intervertebral disc disorders with radiculopathy, lumbar region (principal); M46.1 Sacroiliitis, not elsewhere classified; M25.551 Pain in right hip; M25.552 Pain in left hip; M25.561 Pain in right knee
CPT/HCPCS: 99212; G0463

== ENCOUNTER 2023-03-03 10:29 | Day surgery (SDC) | payer OTHER, SELFPAY ==
[2023-03-03 10:43] VITALS: BP 155/90; PULSE 81; RESP 16; TEMP 36.2; O2SAT 100; BMI 38.7
[2023-03-03 11:05] VITALS: BP 151/99; PULSE 78; RESP 20
--- NOTE | 2023-03-03 11:10 | EXP.PAIN.PRO ---
Procedure Date: 03/03/23 Time: 11:05 Anesthesiologist:: Leonides Centeno CRNA Complications:: None Pre-procedure Diagnosis:: Degenerative disc lumbar spine multilevels. Lumbar radiculopathy. Post-procedure Diagnosis:: Same. Indications for Procedure:: Patient is a very pleasant 47-year-old female who comes our clinic today for repeat lumbar epidural steroid injection at the L4-5 level. Patient has had this in the past with significant proved in terms of her overall low back pain as well as bilateral hip and leg radicular symptoms. She rates her pain 7/10. Procedure Details:: Procedure: Lumbar epidural steroid injection under fluoroscopy Informed consent was obtained and the risks and benefits of the procedure were explained to the patient. The patient was taken to the procedure room and noninvasive monitors placed, including noninvasive blood pressure cuff and pulse oximeter. The back was viewed using C-arm Fluoroscopy and prepped using Chloraprep as a cleansing solution and the L4-L5 interspace was palpated. Skin and subcutaneous tissues were anesthetized using lidocaine 1.5% and a 25-gauge needle. After this, an 18-gauge Touhy epidural needle was placed into the L4-L5 interspace and advanced using fluoroscopic guidance and loss of resistance to air until the epidural space was encountered. After confirmation of needle placement in the epidural space, with dye, a solution containing normal saline, 3 mL and Depo-Medrol 80 mg were incrementally injected into the lumbar epidural space. The patient tolerated the procedure well with no complications. The patient was observed in the Pain Clinic and then discharged home neurologically intact. Plan and Disposition:: Patient was discharged without incident.
[2023-03-03 11:12] VITALS: BP 149/86; PULSE 72; RESP 18; O2SAT 98
== END 2023-03-03 11:12 | disposition home or self-care (01) ==
PROVIDERS: PCP Emergency Medicine; Visit Provider Nurse Anesthetist, Certified Registered
DX: M51.16 Intervertebral disc disorders with radiculopathy, lumbar region (principal)
CPT/HCPCS: 62323; J1040

== ENCOUNTER → 2023-03-18 08:16 | Outpatient (POV) | payer OTHER, SELFPAY ==
[2023-03-18 08:37] VITALS: BP 140/96; PULSE 85; RESP 18; O2SAT 96; BMI 38.0
--- NOTE | 2023-03-18 09:08 | EXP.PAIN.SOA ---
[facility] Pain Management SOAP Note Subjective:: Patient is a pleasant 47-year-old female who presents today for follow-up of lumbar epidural steroid injection L4-L5 on 03/03/2023. We are currently treating the patient for degenerative disc disease of lumbar spine with lumbar radiculopathy symptoms, sacroiliitis, bilateral hip pain, right knee pain. Today she rates her pain a 5 out of 10. She does state that she has had at least 75 to 80% improvement following this injection and feels like it still continue to provide relief. Patient does state that she has been able to increase her activity with decreased pain symptoms and been more functional overall. Patient does state that it took about 2 days before the injection really kicked in. She does also state that she recently was walking in her yard and stepped into a hole from a previous utility pole. Patient does believe that she may have rolled her ankle and that she did experience pain with some swelling. Patient states that she has not had any imaging however she does not believe that this is anything significant such as a fracture. Patient is currently managed with gabapentin 800 mg 4 times a day from our office and phentermine and Suboxone therapy from outside providers. Her Leonid is [id number]. It has been reviewed and appropriate. Review of Systems: General: No recent weight changes, no fever, no sleep disturbances Respiratory: No cough, no shortness of air, no recurring pulmonary infections Cardiovascular/peripheral vascular: No chest pain, no palpitations, no edema, no shortness of breath Gastrointestinal: No new onset incontinence, normal bowel movements reported Genitourinary: No new onset incontinence Musculoskeletal: Low back pain, ankle pain Psychiatric: [Normal mood/affect] Neurological: [Denies weakness in extremities], [denies balance issues] Objective:: Physical Exam: General: Alert and oriented x3, no acute distress, pleasant and cooperative Lungs: Respirations even and unlabored, symmetrical chest expansion Eyes: PERRL Musculoskeletal: Flexion and extension of lumbar [spine] somewhat guarded secondary to pain, [antalgic gait noted] Neurological: Speech clear, no gross sensory deficit Assessment:: Degenerative disc disease of lumbar spine with lumbar radiculopathy symptoms, sacroiliitis, bilateral hip pain, right knee pain Plan:: Patient has had significant improvement following her lumbar epidural steroid injection and does not require any additional injections at this time. I have discussed with the patient that we can order x-ray imaging if she continues to have pain at the site of her ankle and to let our office know. I will refill the patient's gabapentin 800 mg 4 times a day and provide a 1 month supply of this medication. Patient will return to clinic in 1 month for reevaluation of symptoms and plan of care. Patient has been instructed to contact the clinic with any concerns before the next appointment. Dr. Kohler has reviewed this note and agrees with this plan of care. This note was dictated using voice recognition software and make contain errors or omissions. [facility] Disclaimer: The information contained in this section may have been updated after the patient was seen, as this information can be updated by other users. Medical History Carotid artery stenosis Diastolic dysfunction Edema Fibromyalgia Insomnia Left leg pain Neuropathy Family History Other No significant family history Social History (Updated 03/03/23 @ 10:44 by Margi Hoover RN) Smoking Status: Former smoker pack-years: 23 how long ago did patient quit smokin weeks as of 04/08/22 (still vaping but trying to stop) second hand exposure: Yes alcohol intake: never counseling provided: none substance use type: former substance user and marijuana current occupational statu
== END | disposition home or self-care (01) ==
PROVIDERS: PCP Family Medicine; Visit Provider Nurse Practitioner Family
DX: M51.16 Intervertebral disc disorders with radiculopathy, lumbar region (principal); M46.1 Sacroiliitis, not elsewhere classified; M25.551 Pain in right hip; M25.552 Pain in left hip; M25.561 Pain in right knee
CPT/HCPCS: 99212; G0463

== ENCOUNTER → 2023-04-20 13:33 | Outpatient (POV) | payer OTHER, SELFPAY ==
--- NOTE | 2023-04-20 14:18 | EXP.PAIN.SOA ---
[facility] Pain Management SOAP Note Subjective:: Patient is a pleasant 47-year-old female who presents today for follow-up. We are currently treating the patient for degenerative disc disease of lumbar spine with lumbar radiculopathy symptoms, bilateral hip pain, sacroiliitis, right knee pain, right ankle pain. Today she rates her pain a 7 out of 10. Patient states she is still having swelling and pain in her right ankle from our last visit. Patient rolled her ankle at that time and did not think she done anything significant however with the continued pain and issues she is worried that it may be more than what she thought. Patient describes this as a throbbing sensation that is constant and worse with increased swelling. Patient states she does frequently have to stop and take breaks due to the pain. Patient is currently managed gabapentin 800 mg 4 times a day from our office. Patient denies any side effects from this medication. She does state that she is scheduled to go on a cruise coming up. She also states that her spinal cord stimulator that has been in place for the last 6 years is no longer functioning. Patient states that it is not charging and not responding to her systems programmer at all. She states this has been going on for some time. Patient does state previously that the device did work well and helps manage some of her symptoms. She is interested in getting this device replaced. Her Leonid is [id number]. Its been reviewed and appropriate. Review of Systems: General: No recent weight changes, no fever, no sleep disturbances Respiratory: No cough, no shortness of air, no recurring pulmonary infections Cardiovascular/peripheral vascular: No chest pain, no palpitations, no edema, no shortness of breath Gastrointestinal: No new onset incontinence, normal bowel movements reported Genitourinary: No new onset incontinence Musculoskeletal: Right ankle pain Psychiatric: [Normal mood/affect] Neurological: [Denies weakness in extremities], [denies balance issues] Objective:: Physical Exam: General: Alert and oriented x3, no acute distress, pleasant and cooperative Lungs: Respirations even and unlabored, symmetrical chest expansion Eyes: PERRL Musculoskeletal: Flexion and extension of right ankle somewhat guarded secondary to pain, [antalgic gait noted] Neurological: Speech clear, no gross sensory deficit Assessment:: Degenerative disc disease of lumbar spine with lumbar radiculopathy symptoms, bilateral hip pain, sacroiliitis, right knee pain, right ankle pain, 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 I have discussed with the patient that it would be beneficial to order x-ray imaging as well as CT without contrast of her right ankle due to the prolonged pain and edema. I will refill the patient's gabapentin 800 mg 4 times a day and provide a 1 month supply of this medication. I have also discussed with the patient regarding replacing her spinal cord stimulator due to end-of-life. Risk and benefits of this procedure were explained to the patient and she would like to proceed forward with this plan of care. We will plan on submitting to insurance for a [employer] spinal cord stimulator replacement and contact the patient once we have approval. She is not on any blood thinners. Patient will return to clinic in 1 month following her imaging for reevaluation of symptoms and plan of care. Patient has been instructed to contact the clinic with any concerns before the next appointment. Dr. Kohler has reviewed this note and agrees with this plan of care. This note was dictated using voice recognition software and make contain errors or omissions. [facility] Disclaimer: The information contained in this section may have been updated after the patient was seen, as this information can be updated by other users. Medical History (Review
[2023-04-20 14:40] VITALS: BP 140/90; PULSE 80; RESP 18; O2SAT 98; BMI 37.4
== END | disposition home or self-care (01) ==
PROVIDERS: PCP Family Medicine; Visit Provider Nurse Practitioner Family
DX: M51.16 Intervertebral disc disorders with radiculopathy, lumbar region (principal); M25.551 Pain in right hip; M25.552 Pain in left hip; M46.1 Sacroiliitis, not elsewhere classified; M25.561 Pain in right knee; M25.571 Pain in right ankle and joints of right foot
CPT/HCPCS: 99212; G0463

== ENCOUNTER → 2023-05-14 10:36 | Outpatient (POV) | payer OTHER, SELFPAY ==
--- NOTE | 2023-05-14 10:46 | EXP.PAIN.SOA ---
[facility] Pain Management SOAP Note Subjective:: Patient is a pleasant 47-year-old female who presents today for medication refill and follow-up. We are currently treating the patient for degenerative disc disease of lumbar spine with lumbar radiculopathy symptoms, sacroiliitis, right knee pain, right ankle pain. Today she rates her pain a 6 out of 10. Patient denies any new trauma or injury. Patient does state that she did enjoy her cruise that she went on and that since our last visit her ankle has been doing better. She does state that she did forget to get the x-ray before she left and right now she feels like she might not need it that it has improved and the swelling has gone down dramatically. Patient is currently managed with gabapentin 800 mg 4 times a day from our office. She denies any side effects from this medication. She is requesting if we can do a muscle relaxer. She states in the past she was prescribed Zanaflex and that it did help improve her symptoms. She is also on Suboxone therapy from an outside provider. At our last visit we had submitted to insurance for her spinal cord stimulator replacement due to her current one being at end-of-life and no longer functioning. Patient is unable to charge her device and states that the recreation programmer will not even respond. Patient states she has not heard any updated information regarding her replacement. Patient has had her current device in place for 6 years and while was working it did provide significant improvement of her symptoms. She is still interested in replacing this device. Her Leonid is [id number]. Its been reviewed and appropriate. Review of Systems: General: No recent weight changes, no fever, no sleep disturbances Respiratory: No cough, no shortness of air, no recurring pulmonary infections Cardiovascular/peripheral vascular: No chest pain, no palpitations, no edema, no shortness of breath Gastrointestinal: No new onset incontinence, normal bowel movements reported Genitourinary: No new onset incontinence Musculoskeletal: Low back pain, bilateral leg pain Psychiatric: [Normal mood/affect] Neurological: [Denies weakness in extremities], [denies balance issues] Objective:: Physical Exam: General: Alert and oriented x3, no acute distress, pleasant and cooperative Lungs: Respirations even and unlabored, symmetrical chest expansion Eyes: PERRL Musculoskeletal: Flexion and extension of lumbar [spine] somewhat guarded secondary to pain, [antalgic gait noted] Neurological: Speech clear, no gross sensory deficit Assessment:: Degenerative disc disease of lumbar spine with lumbar radiculopathy symptoms, bilateral hip pain, sacroiliitis, right knee pain, right ankle pain Plan:: I will refill the patient's gabapentin 800 mg 4 times a day and also send in a new prescription of tizanidine 4 mg 3 times a day and provide a 1 month supply of these medications. I will follow-up on her spinal cord stimulator replacement submission and contact the patient once we have updated news regarding this procedure. Patient will return to clinic in 1 month for reevaluation of symptoms and plan of care. Patient has been instructed to contact the clinic with any concerns before the next appointment. Dr. Kohler has reviewed this note and agrees with this plan of care. This note was dictated using voice recognition software and make contain errors or omissions. [facility] Disclaimer: The information contained in this section may have been updated after the patient was seen, as this information can be updated by other users. Medical History Carotid artery stenosis Diastolic dysfunction Edema Fibromyalgia Insomnia Left leg pain Neuropathy Family History Other No significant family history Social History Smoking Status: Former smoker tobacc
[2023-05-14 12:36] VITALS: BP 138/93; PULSE 79; RESP 18; O2SAT 94; BMI 37.3
== END | disposition home or self-care (01) ==
PROVIDERS: Visit Provider Nurse Practitioner Family
DX: M51.16 Intervertebral disc disorders with radiculopathy, lumbar region (principal); M25.551 Pain in right hip; M25.552 Pain in left hip; M46.1 Sacroiliitis, not elsewhere classified; M25.561 Pain in right knee; M25.571 Pain in right ankle and joints of right foot
CPT/HCPCS: 99212; G0463

== ENCOUNTER → 2023-06-15 08:42 | Outpatient (POV) | payer OTHER, SELFPAY ==
--- NOTE | 2023-06-15 08:56 | EXP.PAIN.SOA ---
[facility] Pain Management SOAP Note Subjective:: Patient is a pleasant 47-year-old female who presents today for medication refill and follow-up. We are currently treating the patient for degenerative disc disease of lumbar spine with lumbar radiculopathy symptoms, sacroiliitis, right knee pain, right ankle pain. Today she rates her pain a 6 out of 10. Patient denies any new trauma or injury from our last visit. She does state that her right knee continues to cause additional pain and that the cold weather change has worsened her symptoms. At her last visit we did submit for her spinal cord stimulator replacement and she does state today that she did get a letter in the mail stating this was approved however she does not have a date and time for the procedure yet from our office. Patient is currently managed with gabapentin 800 mg 4 times a day from our office and tizanidine 4 mg 3 times a day. She denies any side effects from these medications. She is also on Suboxone therapy from an outside provider. Her Leonid has been reviewed and is appropriate. Review of Systems: General: No recent weight changes, no fever, no sleep disturbances Respiratory: No cough, no shortness of air, no recurring pulmonary infections Cardiovascular/peripheral vascular: No chest pain, no palpitations, no edema, no shortness of breath Gastrointestinal: No new onset incontinence, normal bowel movements reported Genitourinary: No new onset incontinence Musculoskeletal: Right knee pain Psychiatric: [Normal mood/affect] Neurological: [Denies weakness in extremities], [denies balance issues] Objective:: Physical Exam: General: Alert and oriented x3, no acute distress, pleasant and cooperative Lungs: Respirations even and unlabored, symmetrical chest expansion Eyes: PERRL Musculoskeletal: Flexion and extension of lumbar [spine] somewhat guarded secondary to pain, [antalgic gait noted] Neurological: Speech clear, no gross sensory deficit Assessment:: Degenerative disc disease of lumbar spine with lumbar radiculopathy symptoms, right knee pain, sacroiliitis right ankle pain Plan:: I will refill the patient's gabapentin 800 mg 4 times a day and tizanidine 4 mg 3 times a day and provide a 1 month supply of these medications. We will give the patient a date and time for her SCS replacement at today's visit. Patient is not on any blood thinners. Patient has been instructed to contact the clinic with any concerns before the next appointment. Dr. Kohler has reviewed this note and agrees with this plan of care. This note was dictated using voice recognition software and make contain errors or omissions. [facility] Disclaimer: The information contained in this section may have been updated after the patient was seen, as this information can be updated by other users. Medical History Carotid artery stenosis Diastolic dysfunction Edema Fibromyalgia Insomnia Left leg pain Neuropathy Family History Other No significant family history Social History Smoking Status: Former smoker tobacco type: cigarettes packs per day: 0 how long ago did patient quit smokin weeks as of 04/08/22 (still vaping but trying to stop) second hand exposure: Yes alcohol intake: never counseling provided: none substance use type: former substance user and marijuana current occupational status: other Travel in the last 8 weeks: None household members: spouse housing: house number of children: 2 current occupational exposures/hazards: No caffeine: No
[2023-06-15 09:02] VITALS: BP 153/90; PULSE 74; RESP 18; O2SAT 94; BMI 37.3
== END | disposition home or self-care (01) ==
PROVIDERS: PCP Family Medicine; Visit Provider Nurse Practitioner Family
DX: M51.16 Intervertebral disc disorders with radiculopathy, lumbar region (principal); M25.561 Pain in right knee; M46.1 Sacroiliitis, not elsewhere classified; M25.571 Pain in right ankle and joints of right foot
CPT/HCPCS: 99212; G0463

== ENCOUNTER → 2023-06-22 14:15 | Outpatient (CLI) | payer OTHER, SELFPAY ==
[2023-06-22 14:56] LABS: Basophils % 0.6 % (0.1-2.0); Eosinophils # 0.2 K/mm3 (0.0-0.4); Eosinophils % 2.2 % (0.1-12.0); Hematocrit 41.5 % (37.0-47.0); Hemoglobin 14.1 g/dL (12.2-16.2); Mean Corpuscular HGB Conc 33.9 g/dL (31.8-35.4); Mean Corpuscular Hemoglobin 30.7 pg (27.0-31.2); Mean Corpuscular Volume 90.5 fl (81-99); Mean Platelet Volume 8.3 fl (7.4-10.4); Monocytes # 0.3 K/mm3 (0.1-1.0); Monocytes % 4.2 % (1.7-9.3); Neutrophils # 3.6 K/mm3 (1.8-7.8); Neutrophils % 50.9 % (37.0-80.0); Platelet Count 220 K/mm3 (142-424); Red Blood Count 4.59 M/mm3 (4.20-5.40)
[2023-06-22 15:32] LABS: Anion Gap 10.8 mEq/L (5-15); Blood Urea Nitrogen 15 mg/dl (7-17); Calcium 9.1 mg/dl (8.4-10.2); Carbon Dioxide 31 mmol/L (22.0-30.0); Chloride 101 mmol/L (98-107); Estimated Glomerular Filt Rate 90 ml/min (>60); GFR (African American) 109 ML/MIN (>60); Glucose 127 mg/dl (74-100); Potassium 3.8 mmoL/L (3.5-5.1); Sodium 139 mmol/L (136-145)
== END ==
PROVIDERS: PCP Family Medicine; Visit Provider Anesthesiology
DX: Z01.812 Encounter for preprocedural laboratory examination (principal)
CPT/HCPCS: 36415; 80048; 85025

== ENCOUNTER 2023-06-26 08:53 | Day surgery (SDC) | payer OTHER, SELFPAY ==
[2023-06-23 17:02] VITALS: BMI 37.3
[2023-06-26 09:17] VITALS: BP 144/83; PULSE 79; RESP 17; TEMP 36.1; O2SAT 95; BMI 37.3
[2023-06-26 09:19] LABS: Urine Pregnancy, HCG Qual. Negative (Negative)
--- NOTE | 2023-06-26 11:15 | EXP.ANES.CKL ---
[facility] Disclaimer: The information contained in this section may have been updated after the patient was seen, as this information can be updated by other users. Medical History Carotid artery stenosis Diastolic dysfunction Edema Fibromyalgia Insomnia Left leg pain Neuropathy Surgical History History of appendectomy History of tubal ligation Family History Other Family history of [place] (myocardial infarction) Family history of coronary artery disease Social History Smoking Status: Former smoker tobacco type: cigarettes packs per day: 0 how long ago did patient quit smokin weeks as of 04/08/22 (still vaping but trying to stop) second hand exposure: Yes alcohol intake: never counseling provided: none substance use type: former substance user and marijuana current occupational status: other Travel in the last 8 weeks: None household members: spouse housing: house number of children: 2 current occupational exposures/hazards: No caffeine: No [facility] Anesthesia Checklist Patient Identification Patient Identification: Verbal (Name & ) Structural Data Admitted From: Home Planned Operative Procedure/s: nerve stim redo Consent for Planned Operative Procedure(s) Verified: Yes Additional verifications Anesthesia Reactions: No Hx Blood Transfusions: No Blood Transfusion Reaction: No Airway Assessment Mallampati Score:: Class II C-Spine Mobility Assessed: Yes TMJ Mobility Assessed: Yes Dentition: Good Dentition Neurological Assessment Level of Consciousness: Awake, Alert and Appropriate Anesthesia Plan Anesthesia Risk discussed: Yes Anesthesia Plan: Verified ASA Class: II Anesthesia Type: MAC
[2023-06-26 12:28] VITALS: BP 143/67; PULSE 68; RESP 16; TEMP 36.8; O2SAT 98
[2023-06-26 12:38] VITALS: BP 144/83; PULSE 63; RESP 18; O2SAT 98
--- NOTE | 2023-06-26 12:43 | P.OP_ITS ---
Date of procedure: 06/26/23 Pre-op Diagnosis:: End-of-life spinal cord stimulator battery Post-op Diagnosis:: Same Procedure performed:: Replacement of spinal cord stimulator battery Surgeon:: Girma Kohler MD [employer]OCIATE:: Jaylon Urbina Anesthesia: MAC Estimated blood loss (mL): 5 Clinical Note:: Patient is a pleasant 47-year-old white female who we have been treating for low back pain with lumbar radicular symptoms. She had a [employer] spinal cord stimulator system in place which was working very well. Her battery is now at end-of-life. It has been for 6 months. She presents for placement of her battery today. When her stimulator was working it was working very well. Operative findings:: None Operative note:: Informed consent was obtained and the risk and benefits of the procedure were explained to the patient. Patient was taken the operating room placed prone on the procedure table. She was prepped and draped in sterile fashion. C-arm fluoroscopy was used to view the leads and battery. The leads were found to be at the T9-T10 and T11 interspace. The skin and subcutaneous tissues overlying the battery were anesthetized using lidocaine. I made an incision and dissected out the battery. I disconnected the leads and reconnected to the new battery. Impedances were checked and found to be okay. We did test the stimulation intraoperatively to make sure the patient felt in all areas of pain. We had good coverage of all areas of pain. The bag was placed in the pocket the pocket was irrigated with antibiotic solution. The pocket was then closed with 2-0 Vicryl followed by 4-0 nylon and subcutaneous ulysses. The patient tolerated the procedure well no complications. Patient was discharged home neurologic intact with good relief of pain symptoms. Plan and disposition: Follow-up with this patient in 1 week for wound check. We will follow-up in 2 to 3 weeks for suture removal. Condition: stable Disposition: PACU Complications:: None
[2023-06-26 12:48] VITALS: BP 151/85; PULSE 68; RESP 16; O2SAT 97
[2023-06-26 12:58] VITALS: BP 147/80; PULSE 66; RESP 16; O2SAT 98
[2023-06-26 13:28] VITALS: BP 144/76; PULSE 66; RESP 16; O2SAT 99
== END 2023-06-26 13:30 | disposition home or self-care (01) ==
PROVIDERS: PCP Family Medicine; Visit Provider Anesthesiology
PROC: (CPT 63685; principal; 2023-06-26 10:30)
DX: Z45.49 Encounter for adjustment and management of other implanted nervous system device (principal); M54.16 Radiculopathy, lumbar region
CPT/HCPCS: 63685; 81025; 96374; C1820

== ENCOUNTER → 2023-07-06 14:41 | Outpatient (POV) | payer OTHER, SELFPAY ==
--- NOTE | 2023-07-06 15:04 | EXP.PAIN.SOA ---
[facility] Pain Management SOAP Note Subjective:: Patient is a pleasant 47-year-old female who presents today for follow-up of spinal cord stimulator battery change on 06/26/2023. We are currently treating the patient for degenerative disc disease of lumbar spine with lumbar radiculopathy symptoms, sacroiliitis, right knee pain, right ankle pain. Today she rates her pain an 8 out of 10. Patient does state that she has been able to increase her activity and has much better pain coverage following her battery change patient states today her pain is mostly in her right knee and thinks it is more related to the cold weather and arthritis. Patient denies any issues following her surgical procedure. Patient is currently managed with gabapentin 800 mg 4 times a day and tizanidine 4 mg 3 times a day. She denies any side effects from this medication. Her Leonid has been reviewed and is appropriate. Review of Systems: General: No recent weight changes, no fever, no sleep disturbances Respiratory: No cough, no shortness of air, no recurring pulmonary infections Cardiovascular/peripheral vascular: No chest pain, no palpitations, no edema, no shortness of breath Gastrointestinal: No new onset incontinence, normal bowel movements reported Genitourinary: No new onset incontinence Musculoskeletal: Right knee pain Psychiatric: [Normal mood/affect] Neurological: [Denies weakness in extremities], [denies balance issues] Objective:: Physical Exam: General: Alert and oriented x3, no acute distress, pleasant and cooperative Lungs: Respirations even and unlabored, symmetrical chest expansion Eyes: PERRL Musculoskeletal: Flexion and extension of right knee somewhat guarded secondary to pain, [antalgic gait noted] Neurological: Speech clear, no gross sensory deficit Skin: Incision site is clean, dry, well-approximated with no erythema noted and sutures intact Assessment:: Degenerative disc disease of lumbar spine with lumbar radiculopathy symptoms, sacroiliitis, right knee pain, right ankle pain Plan:: Patient is continuing to do well following her spinal cord stimulator battery change. Her incision site is clean, dry, well-approximated with no erythema noted and sutures intact. I have discussed with the patient to continue her postop restrictions and that we will plan on taking out her sutures next week. Patient will return to clinic in 1 week for reevaluation of symptoms and plan of care. Patient has been instructed to contact the clinic with any concerns before the next appointment. Dr. Kohler has reviewed this note and agrees with this plan of care. This note was dictated using voice recognition software and make contain errors or omissions. [facility] Disclaimer: The information contained in this section may have been updated after the patient was seen, as this information can be updated by other users. Medical History Carotid artery stenosis Diastolic dysfunction Edema Fibromyalgia Insomnia Left leg pain Neuropathy Surgical History History of appendectomy History of tubal ligation Family History Other Family history of [place] (myocardial infarction) Family history of coronary artery disease Social History Smoking Status: Former smoker tobacco type: cigarettes packs per day: 0 how long ago did patient quit smokin weeks as of 04/08/22 (still vaping but trying to stop) second hand exposure: Yes alcohol intake: never counseling provided: none substance use type: former substance user and marijuana current occupational status: other Travel in the last 8 weeks: None household members: spouse housing: house number of children: 2 current occupational exposures/hazards: No caffeine: No
[2023-07-06 16:28] VITALS: BP 152/92; PULSE 79; RESP 18; O2SAT 100; BMI 37.3
== END | disposition home or self-care (01) ==
PROVIDERS: PCP Family Medicine; Visit Provider Nurse Practitioner Family
DX: M51.16 Intervertebral disc disorders with radiculopathy, lumbar region (principal); M46.1 Sacroiliitis, not elsewhere classified; M25.561 Pain in right knee; M25.571 Pain in right ankle and joints of right foot; Z96.82 Presence of neurostimulator
CPT/HCPCS: 99212; G0463

== ENCOUNTER → 2023-07-23 08:47 | Outpatient (POV) | payer OTHER, SELFPAY ==
--- NOTE | 2023-07-23 09:58 | EXP.PAIN.SOA ---
[facility] Pain Management SOAP Note Subjective:: Patient is a pleasant 47-year-old female who presents today for follow-up. We are currently treating the patient for degenerative disc disease of lumbar spine with lumbar radiculopathy symptoms, sacroiliitis, right knee pain, right ankle pain. Today she rates her pain an 8 out of 10. Patient denies any new injury or trauma. She does state that she has been experiencing worsening pain down her left arm. Patient does state it is an aching, sharp shooting pain with some tingling sensations. Patient states that she has noticed it progressing over the last 2 months and that the shooting pains just started last night. Patient states the pain is interfering with her ability perform activities of daily living such as cooking and cleaning. Patient states that she is unsure whether or not if it may be a pinched nerve or pulled muscle. She states she has had neck pain for several years and that occasionally it will bother her on some days than others. Patient does have a spinal cord stimulator in place that she states is working well. She is managed with gabapentin 800 mg 4 times a day and tizanidine 4 mg 3 times a day. She denies any side effects from these medications. Her Leonid has been reviewed and is appropriate. Review of Systems: General: No recent weight changes, no fever, no sleep disturbances Respiratory: No cough, no shortness of air, no recurring pulmonary infections Cardiovascular/peripheral vascular: No chest pain, no palpitations, no edema, no shortness of breath Gastrointestinal: No new onset incontinence, normal bowel movements reported Genitourinary: No new onset incontinence Musculoskeletal: Left arm numbness/tingling/pain Psychiatric: [Normal mood/affect] Neurological: [Denies weakness in extremities], [denies balance issues] Objective:: Physical Exam: General: Alert and oriented x3, no acute distress, pleasant and cooperative Lungs: Respirations even and unlabored, symmetrical chest expansion Eyes: PERRL Musculoskeletal: Flexion and extension of cervical [spine] somewhat guarded secondary to pain, [antalgic gait noted] Neurological: Speech clear, no gross sensory deficit Assessment:: Degenerative disc disease of lumbar spine with lumbar radiculopathy symptoms, sacroiliitis, right knee pain, right ankle pain, neck pain with cervical radiculopathy symptoms Plan:: Patient is experiencing worsening pain in her left arm with limited range of motion of her cervical spine. I have discussed with the patient that she may benefit from a cervical epidural steroid injection. Risk and benefits were discussed with the patient and she would like to proceed forward with this plan of care. Patient is not on any blood thinners. I will also refill her gabapentin 800 mg 4 times a day and tizanidine 4 mg 3 times a day. I have counseled the patient that she may also benefit from trying a different muscle relaxer to rule out a pulled muscle in her left arm. I will send a prescription for methocarbamol 500 mg with 7 tablets. Patient will be scheduled for a JOESPH C6-C7. All epidurals are done under fluoroscopic guidance for accuracy and safety. Patient has been instructed to contact the clinic with any concerns before the next appointment. Dr. Kohler has reviewed this note and agrees with this plan of care. This note was dictated using voice recognition software and make contain errors or omissions. [facility] Disclaimer: The information contained in this section may have been updated after the patient was seen, as this information can be updated by other users. Medical History Carotid artery stenosis Diastolic dysfunction Edema Fibromyalgia Insomnia Left leg pain Neuropathy Surgical History History of appendectomy History of tubal ligation Family History
[2023-07-23 10:36] VITALS: BP 141/95; PULSE 78; RESP 18; O2SAT 98; BMI 37.3
== END | disposition home or self-care (01) ==
PROVIDERS: Visit Provider Nurse Practitioner Family
DX: M51.16 Intervertebral disc disorders with radiculopathy, lumbar region (principal); M46.1 Sacroiliitis, not elsewhere classified; M25.561 Pain in right knee; M25.571 Pain in right ankle and joints of right foot; M54.12 Radiculopathy, cervical region
CPT/HCPCS: 99212; 99213; G0463

== ENCOUNTER → 2023-09-28 08:16 | Outpatient (POV) | payer OTHER, SELFPAY ==
[2023-09-28 08:28] VITALS: BP 156/92; PULSE 73; RESP 20; BMI 39.7
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
== END | disposition home or self-care (01) ==
PROVIDERS: PCP Family Medicine; Visit Provider Nurse Practitioner Family
DX: M51.16 Intervertebral disc disorders with radiculopathy, lumbar region (principal); M46.1 Sacroiliitis, not elsewhere classified; G89.29 Other chronic pain; M25.561 Pain in right knee; M25.571 Pain in right ankle and joints of right foot
CPT/HCPCS: 99212; G0463

== ENCOUNTER 2023-10-13 12:59 | Outpatient (CLI) | payer OTHER, SELFPAY ==
[2023-10-13] MEDS: IOPAMIDOL-300 (61%) 100ML VIAL 100 ML IV (12:00)
--- NOTE | 2023-10-13 13:02 | CT_ITS ---
FINAL REPORT CLINICAL HISTORY: Right Parietal lobe COMPARISON: 01/25/2020 FINDINGS: CT HEAD WITH CONTRAST: CT examination of the head is compared to the prior examination of 2019. The ventricles are normal in size and configuration. No extra-axial fluid collections are noted. No mass effect or midline shift is seen. There is an 11 x 10 mm mass present in the medial right parietal lobe with a small focus of calcification. This mass was present on the prior CT examination, when it measured 9 x 9 mm in size. On today's examination there is likely contrast-enhancement adjacent to the calcification. No other focal parenchymal masses are identified. IMPRESSION: 11 x 10 mm mass present in the medial right parietal lobe with a small focus of calcification and likely mild contrast-enhancement. This mass was present on the prior CT examination, and a slightly larger. The appearance is worrisome for a primary neoplasm, nonaggressive, and would recommend MR of the head with and without contrast for further evaluation. Reviewed, Interpreted and Dictated by Delfino Costa III, MD Transcribed by Yumi Nelson Authenticated and [facility]
== END 2023-10-13 23:59 ==
PROVIDERS: PCP Family Medicine; Visit Provider Family Medicine
DX: D32.9 Benign neoplasm of meninges, unspecified (principal)
CPT/HCPCS: 70460; Q9967

== ENCOUNTER 2023-12-11 09:34 | Outpatient (POV) | payer OTHER, SELFPAY ==
[2023-12-11 10:12] VITALS: BP 150/97; PULSE 80; RESP 16; O2SAT 95; BMI 38.9
--- NOTE | 2023-12-11 10:21 | EXP.PAIN.SOA ---
[facility] Pain Management SOAP Note Subjective:: Patient is a pleasant 48-year-old female who presents today for follow-up and medication refill. Today she rates her pain a 5 out of 10. Patient denies any new trauma or injury from her last visit. She does state however that for about a month ago she did have a CT due to continued headaches and they did find possibly to brain tumors. She states that she is waiting for an appointment with neurology for possible surgical intervention and evaluation. Patient is currently managed from our office with gabapentin 800 mg 4 times a day and tizanidine 4 mg 3 times a day. She denies any side effects from this medication. Her Leonid has been reviewed and is appropriate. Review of Systems: General: No recent weight changes, no fever, no sleep disturbances Respiratory: No cough, no shortness of air, no recurring pulmonary infections Cardiovascular/peripheral vascular: No chest pain, no palpitations, no edema, no shortness of breath Gastrointestinal: No new onset incontinence, normal bowel movements reported Genitourinary: No new onset incontinence Musculoskeletal: Low back pain Psychiatric: [Normal mood/affect] Neurological: [Denies weakness in extremities], [denies balance issues] Objective:: Physical Exam: General: Alert and oriented x3, no acute distress, pleasant and cooperative Lungs: Respirations even and unlabored, symmetrical chest expansion Eyes: PERRL Musculoskeletal: Flexion and extension of lumbar [spine] somewhat guarded secondary to pain, [antalgic gait noted] Neurological: Speech clear, no gross sensory deficit Assessment:: Degenerative disc disease of lumbar spine with lumbar radiculopathy symptoms, chronic sacroiliitis, right knee pain, right ankle pain Plan:: I have counseled the patient to contact us with any additional issues that she may need help with regarding to her recent diagnosis. I will refill the patient's gabapentin 800 mg 4 times a day and tizanidine 4 mg 3 times a day and provide a 3-month supply of this medication. Patient will return to clinic in 3 months for reevaluation of symptoms and plan of care. Patient has been instructed to contact the clinic with any concerns before the next appointment. Dr. Kohler has reviewed this note and agrees with this plan of care. This note was dictated using voice recognition software and make contain errors or omissions. [facility] Disclaimer: The information contained in this section may have been updated after the patient was seen, as this information can be updated by other users. Medical History Carotid artery stenosis Left leg pain Fibromyalgia Edema Diastolic dysfunction Insomnia Neuropathy Surgical History History of tubal ligation History of appendectomy Family History Other Family history of [place] (myocardial infarction) Family history of coronary artery disease Social History Smoking Status: Former smoker tobacco type: cigarettes packs per day: 0 how long ago did patient quit smokin weeks as of 04/08/22 (still vaping but trying to stop) second hand exposure: Yes alcohol intake: never counseling provided: none substance use type: former substance user and marijuana current occupational status: other Travel in the last 8 weeks: None household members: spouse housing: house number of children: 2 current occupational exposures/hazards: No caffeine: No
== END 2023-12-11 23:59 | disposition home or self-care (01) ==
PROVIDERS: PCP Family Medicine; Visit Provider Nurse Practitioner Family
DX: M51.16 Intervertebral disc disorders with radiculopathy, lumbar region (principal); M46.1 Sacroiliitis, not elsewhere classified; G89.29 Other chronic pain; M25.561 Pain in right knee; M25.571 Pain in right ankle and joints of right foot
CPT/HCPCS: 99212; G0463

== ENCOUNTER 2024-02-08 20:10 | Emergency (ER) | payer OTHER, SELFPAY ==
[2024-02-08 20:20] VITALS: BP 140/81; PULSE 75; RESP 16; TEMP 36.7; O2SAT 99; BMI 39.9
--- NOTE | 2024-02-08 20:27 | XR_ITS ---
PROCEDURE INFORMATION: Exam: XR Right Knee Exam date and time: 02/08/2024 8:23 PM Age: 48 years old Clinical indication: Injury or trauma; Fall; Blunt trauma; Knee; Right; Additional info: Fall, knee injury TECHNIQUE: Imaging protocol: Radiologic exam of the right knee. Views: 4 or more views. COMPARISON: CT KNEE RT WO CON 11/03/2022 3:16 PM FINDINGS: Bones/joints: There is moderate tricompartmental osteoarthritis, lateral compartment predominant. No acute fracture is evident. There is no joint effusion. Soft tissues: Normal. IMPRESSION: No acute fracture. Moderate tricompartmental osteoarthritis, lateral compartment predominant.
--- NOTE | 2024-02-08 20:30 | ED_ITS ---
Discharge Plan Disposition Patient Disposition: Home, Self-Care Prescriptions Prescriptions: No Action levothyroxine [Synthroid] 50 mcg tablet 50 mcg PO DAILY Qty: 90 3RF albuterol sulfate 90 mcg/actuation HFA aerosol inhaler 2 inh IH Q4-6H PRN (Reason: shortness of breath or wheezing) Qty: 8.5 10RF aripiprazole 10 mg tablet 10 mg PO QHS Qty: 30 10RF topiramate 25 mg tablet 25 mg PO BID Qty: 60 2RF spironolactone 25 mg tablet See Rx Instructions .ROUTE .COMPLEX Qty: 30 5RF Dose Instruction: TAKE ONE TABLET BY MOUTH ONCE A DAY Rx Instructions: TAKE ONE TABLET BY MOUTH ONCE A DAY furosemide 40 mg tablet See Rx Instructions .ROUTE .COMPLEX Qty: 30 1RF Dose Instruction: TAKE ONE TABLET BY MOUTH ONCE A DAY NEEDED FOR EDEMA Rx Instructions: TAKE ONE TABLET BY MOUTH ONCE A DAY NEEDED FOR EDEMA amitriptyline 50 mg tablet See Rx Instructions .ROUTE .COMPLEX Qty: 30 1RF Dose Instruction: TAKE ONE TABLET BY MOUTH AT BEDTIME FOR DEPRESSION Rx Instructions: TAKE ONE TABLET BY MOUTH AT BEDTIME FOR DEPRESSION duloxetine 30 mg capsule,delayed release(DR/EC) See Rx Instructions .ROUTE .COMPLEX Qty: 30 1RF Dose Instruction: TAKE ONE CAPSULE BY MOUTH ONCE A DAY WITH 60MG CAPSULE Rx Instructions: TAKE ONE CAPSULE BY MOUTH ONCE A DAY WITH 60MG CAPSULE duloxetine 60 mg capsule,delayed release(DR/EC) See Rx Instructions .ROUTE .COMPLEX Qty: 30 1RF Dose Instruction: TAKE ONE CAPSULE BY MOUTH ONCE A DAY FOR MOOD Rx Instructions: TAKE ONE CAPSULE BY MOUTH ONCE A DAY FOR MOOD pantoprazole 40 mg tablet,delayed release (DR/EC) See Rx Instructions .ROUTE .COMPLEX Qty: 30 1RF Dose Instruction: TAKE ONE TABLET BY MOUTH ONCE A DAY Rx Instructions: TAKE ONE TABLET BY MOUTH ONCE A DAY buprenorphine-naloxone 8-2 mg tablet, sublingual 1 tab SUBLINGUAL BID tizanidine [Zanaflex] 4 mg tablet 4 mg PO TID Qty: 90 2RF gabapentin [Neurontin] 800 mg tablet 800 mg PO QID Qty: 120 2RF Referrals Follow up/Referrals: Elian Taylor MD [Primary Care Provider] - See instructions Activity Restrictions/Add. Instructions Additional Instructions/Restrictions: No evidence of fracture or dislocation please follow-up with orthopedic surgery in 1-2 weeks if you are not improving to consider outpatient advanced imaging such as MRI. You may bear weight as tolerated. Clinical Impressions Clinical Impression: Contusion of knee Discharge ED Provider: Sinan Dorado General Adult HPI General Chief complaint: Extremity Injury, Lower Stated complaint: AO 02/06 fall, right knee pain Time Seen by Provider: 02/08/24 20:24 Mode of Arrival: Family Vehicle Source of Information: Patient Limitations: No Limitations Description of Symptoms (Recalled from ER Triage Doc. by RN): 48 yo presents after falling yesterday and injuring right knee. States she got her toe caught on a baby gate and fell landing directly on her knee on the kitchen floor. Prev ious surgery included debrided knee. History of Present Illness HPI narrative: Patient is a 48-year-old female presenting today with right knee pain. States she fell directly onto the right knee while tripping over a baby gate yesterday at a friend's house. She fell directly onto hardwood floor. She has been able to ambulate since that time but has had swelling and bruising of the right knee. No injuries elsewhere she is not on any anticoagulants. 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 04/02/22 02/01/24 sublingual tablet recovery Previous Rx's Medication Instructions Recorded levothyroxine 50 mcg tablet 50 mcg PO DAILY #90 tabs 05/21/23 (Synthroid) spironolactone 25 mg tablet See Rx Instructions .Route 07/14/23 .COMPLEX #30 tabs aripiprazole 10 mg tablet 10 mg PO QHS antipsychotic #30 tabs 07/16/23 albuterol sulfate 90 mcg/actuation 2 inh inhalation Q4-6H PRN 09/09/23 aerosol inhaler shortness of breath or wheezing #8.5 grams gabapentin 800 mg tablet 800 mg PO QID #120 tabs 12/11/23 (Neurontin) tizanidine 4 mg tablet (Zanaflex) 4 mg PO TID #90 tabs 12/11/23 topiramate 25 mg tablet 25 mg PO BID #60 tabs 02/01/24 amitriptyline 50 mg tablet See Rx Instructions .Route 02/08/24 .COMPLEX #30 tabs duloxetine 30 mg capsule,delayed See Rx Instructions .Route 02/08/24 release .COMPLEX #30 caps duloxetine 60 mg capsule,delayed See Rx Instructions .Route 02/08/24 release .COMPLEX #30 caps furosemide 40 mg tablet See Rx Instructions .Route 02/08/24 .COMPLEX #30 tabs pantoprazole 40 mg tablet,delayed See Rx Instructions .Route 02/08/24 release .COMPLEX #30 tabs Allergies Allergy/AdvReac Type Severity Reaction Status Date / Time codeine [CODEINE] Allergy Intermediate Verified 02/01/24 13:14 Penicillins Allergy Intermediate Verified 02/01/24 13:14 Sulfa (Sulfonamide Allergy Intermediate Rash Verified 02/01/24 13:14 Antibiotics) tramadol Allergy Rash Verified 02/01/24 13:14 [facility] Disclaimer: The information contained in this section may have been updated after the patient was seen, as this information can be updated by other users. Medical History (Updated 02/08/24 @ 21:10 by Sinan Dorado MD) Migraine Primary brain neoplasm Carotid artery stenosis Left leg pain Fibromyalgia Edema Diastolic dysfunction Insomnia Neuropathy Surgical History History of tubal ligation History of appendectomy Family History Other Family history of [place] (myocardial infarction) Family history of coronary artery disease Social History Smoking Status: Unknown if ever smoked how long ago did patient quit smokin weeks as of 04/08/22 (still vaping but trying to stop) second hand exposure: Yes alcohol intake: never counseling provided: none substance use type: former substance user and marijuana current occupational status: other Travel in the last 8 weeks: None household members: spouse housing: house number of children: 2 current occupational exposures/hazards: No caffeine: No ROS Obtained: Yes All systems reviewed & no additional complaints except as documented Physical Exam General General appearance: alert and in no apparent distress Respiratory Respiratory exam: Present normal lung sounds bilaterally Cardiovascular Cardiovascular exam: Present regular rate Extremities Exam Extremities exam: Present other (Right knee normal range of motion and ligaments all types there is swelling and ecchymosis over the anterior aspect of the patella neurovascular intact distally) Neurological Exam Neurological exam: Present alert and oriented X3 Medical Decision Making Leonid Inquiry Pt receiving controlled substance: No Vital Signs: 02/08/24 20:20 Temperature 98.1 F Temperature Source Oral Pulse Rate [Right Brachial] 75 Respiratory Rate 16 Blood Pressure [Right Arm] 140/81 Blood Pressure Mean [Right Arm] 100 Blood Pressure Source [Right Arm] Automatic Cuff Blood Pressure Position [Right Arm] Sitting 02 Sat by Pulse Oximetry 99 Oxygen Delivery Method Room Air Orders (Tests/Meds): ORDERS Category Date Time Status Knee XR right 4 views [XR knee RT 4V] Stat Exams 02/08/24 20:27 Taken Medical Decision Narrative: 48-year-old with above history and physical she has obvious swelling and ecchymosis of the anterior aspect of her right knee differential includes fracture dislocation specifically patella fracture. Will get a 4 view including a sunrise view of the right knee and reassess. X-rays performed which I first interpreted which show no fracture or dislocation. Patient was given an Cameron wrap able to ambulate without any further assist devices. She will follow-up with orthopedic surgery in 1 to 2 weeks if she does not have a trajectory of improvement. Patient was discharged in stable condition with supportive care emphasized. Critical Care Critical Care Time Critical Care Time: No
--- NOTE | 2024-02-08 21:10 | PC.NURSE ---
Pt's mother called out because she stated the patient was having a seizure. MD bedside determined it was not a seizure. Pt and mother informed. [id number]
[2024-02-08 21:20] VITALS: BP 138/74; PULSE 71; RESP 16; TEMP 36.7
== END 2024-02-08 21:23 | disposition home or self-care (01) ==
PROVIDERS: Emergency Provider Student in an Organized Health Care Education/Training Program; PCP Family Medicine
DX: S80.01XA Contusion of right knee, initial encounter (principal); W01.10XA Fall on same level from slipping, tripping and stumbling with subsequent striking against unspecified object, initial encounter; M25.561 Pain in right knee
CPT/HCPCS: 73564; 99283

== ENCOUNTER 2024-03-10 08:17 | Outpatient (POV) | payer OTHER, SELFPAY ==
[2024-03-10 08:26] VITALS: BP 139/81; PULSE 74; RESP 16; O2SAT 98; BMI 40.6
--- NOTE | 2024-03-10 08:54 | A.OFFVIS_ITS ---
[facility] Disclaimer: The information contained in this section may have been updated after the patient was seen, as this information can be updated by other users. Medical History (Updated 03/10/24 @ 09:01 by Rica Mckeon APRN) Migraine Primary brain neoplasm Carotid artery stenosis Left leg pain Fibromyalgia Edema Diastolic dysfunction Insomnia Neuropathy Surgical History History of tubal ligation History of appendectomy Family History Other Family history of [place] (myocardial infarction) Family history of coronary artery disease Social History Smoking Status: Unknown if ever smoked how long ago did patient quit smokin weeks as of 04/08/22 (still vaping but trying to stop) second hand exposure: Yes alcohol intake: never counseling provided: none substance use type: former substance user and marijuana current occupational status: unemployed Travel in the last 8 weeks: None household members: spouse housing: house number of children: 2 current occupational exposures/hazards: No caffeine: No PM Subjective & Objective Subjective Subjective:: Patient is a pleasant 48-year-old female who presents today for medication refill and follow-up. Today she rates her pain a 7 out of 10. Patient states from her last visit she did end up having a fall about a month ago where she landed on her right knee. Patient states that she is continue to have issues since. Patient does state her knee is still numb and has a burning pain in the front. Patient does state that she had x-ray imaging with no acute fractures or findings. Patient does also state from her last visit her mother did pass away unexpectedly. Patient states due to this she was unable to go get her CT for her continued headaches. Patient is currently managed with gabapentin 800 mg 4 times a day and tizanidine 4 mg 3 times a day. She denies any side effects from this medication. Her Leonid has been reviewed and is appropriate. Review of Systems: General: No recent weight changes, no fever, no sleep disturbances Respiratory: No cough, no shortness of air, no recurring pulmonary infections Cardiovascular/peripheral vascular: No chest pain, no palpitations, no edema, no shortness of breath Gastrointestinal: No new onset incontinence, normal bowel movements reported Genitourinary: No new onset incontinence Musculoskeletal: Right knee pain Psychiatric: [Normal mood/affect] Neurological: [Denies weakness in extremities], [denies balance issues] Pain at rest (0-10 scale): 7 Objective Objective:: Physical Exam: General: Alert and oriented x3, no acute distress, pleasant and cooperative Lungs: Respirations even and unlabored, symmetrical chest expansion Eyes: PERRL Musculoskeletal: Flexion and extension of right knee somewhat guarded secondary to pain, [antalgic gait noted] Neurological: Speech clear, no gross sensory deficit Has patient had previous pain injection?: No Conservative treatment options previously tried: Home exercise plan Length of treatment: Longer than 6 weeks and Prescription medications Length of treatment: Longer than 6-week Meds Home Medications and Allergies Home Medications ?Medication ?Instructions ?Recorded ?Confirmed ?Type 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 04/02/22 03/10/24 History sublingual tablet recovery levothyroxine 50 mcg tablet 50 mcg PO DAILY #90 tabs 05/21/23 03/10/24 Rx (Synthroid) spironolactone 25 mg tablet See Rx Instructions .Route 07/14/23 03/10/24 Rx .COMPLEX #30 tabs aripiprazole 10 mg tablet 10 mg PO QHS antipsychotic #30 tabs 07/16/23 03/10/24 Rx albuterol sulfate 90 mcg/actuation 2 inh inhalation Q4-6H PRN 09/09/23 03/10/24 Rx aerosol inhaler shortness of breath or wheezing #8.5 grams gabapentin 800 mg tablet 800 mg PO QID #120 tabs 12/11/23 03/10/24 Rx (Neurontin) tizanidine 4 mg tablet (Zanaflex) 4 mg PO TID #90 tabs 12/11/23 03/10/24 Rx topiramate 25 mg tablet 25 mg PO BID #60 tabs 02/01/24 03/10/24 Rx amitriptyline 50 mg tablet See Rx Instructions .Route 02/08/24 03/10/24 Rx .COMPLEX #30 tabs duloxetine 30 mg capsule,delayed See Rx Instructions .Route 02/08/24 03/10/24 Rx release .COMPLEX #30 caps duloxetine 60 mg capsule,delayed See Rx Instructions .Route 02/08/24 03/10/24 Rx release .COMPLEX #30 caps furosemide 40 mg tablet See Rx Instructions .Route 02/08/24 03/10/24 Rx .COMPLEX #30 tabs pantoprazole 40 mg tablet,delayed See Rx Instructions .Route 02/08/24 03/10/24 Rx release .COMPLEX #30 tabs New Prescriptions to Start Prescriptions: Allergies Allergy/AdvReac Type Severity Reaction Status Date / Time codeine [CODEINE] Allergy Intermediate Verified 02/01/24 13:14 Penicillins Allergy Intermediate Verified 02/01/24 13:14 Sulfa (Sulfonamide Allergy Intermediate Rash Verified 02/01/24 13:14 Antibiotics) tramadol Allergy Rash Verified 02/01/24 13:14 Assessment and Plan *Assessment and plan (1) Right knee pain: Status: Acute Qualifiers: Chronicity: acute Qualified Code(s): M25.561 - Pain in right knee Category: Medical Code(s): M25.561 - Pain in right knee Plan Patient continues to experience significant pain related to a recent fall on her right knee. I have discussed with the patient that it may be something like a meniscus tear. We will order CT without contrast of her right knee for evaluation due to the continued pain over the last month. I will refill the patient's gabapentin and tizanidine and provide a 3-month supply of this medication. Patient will return to clinic in 1 month for reevaluation of symptoms and plan of care. Patient has been instructed to contact the clinic with any concerns before the next appointment. Dr. Kohler has reviewed this note and agrees with this plan of care. This note was dictated using voice recognition software and make contain errors or omissions. All injections are used with Lidocaine or Bupivacaine and Depo Medrol.
== END 2024-03-10 23:59 | disposition home or self-care (01) ==
PROVIDERS: PCP Family Medicine; Visit Provider Nurse Practitioner Family
DX: M25.561 Pain in right knee (principal); F17.290 Nicotine dependence, other tobacco product, uncomplicated; Z79.899 Other long term (current) drug therapy
CPT/HCPCS: 99212; G0463

== ENCOUNTER 2024-03-21 07:55 | Outpatient (CLI) | payer OTHER, SELFPAY ==
--- NOTE | 2024-03-21 07:59 | MM_ITS ---
PROCEDURE INFORMATION: Exam: MG Bilateral Screening 3D Mammography Exam date and time: 03/21/2024 7:45 AM Age: 48 years old Clinical indication: Screening examination TECHNIQUE: Imaging protocol: Bilateral Screening tomosynthesis and 2D mammography including computer-aided detection (CAD) when performed. COMPARISON: 1. MG DMDXUWAL DIG MAMM-DX UNI LT W/AVS W/CAD 01/26/2017 2:19 PM 2. MG DMSB DIG MAMM-SCREEN YOVANI W/CAD 01/02/2017 9:09 AM FINDINGS: MAMMOGRAPHY: Breast composition: There are scattered areas of fibroglandular density. Mass: None. Architectural distortion: None. Calcifications: No suspicious calcifications. Asymmetric density: None. Skin thickening: None. Axillary adenopathy: None. IMPRESSION: No mammographic evidence of malignancy. Annual screening is recommended unless otherwise clinically indicated. ASSESSMENT: BI-RADS Category 1: Negative
== END 2024-03-21 23:59 | disposition home or self-care (01) ==
LOC: RAD 07:55
PROVIDERS: PCP Family Medicine; Visit Provider Nurse Practitioner
DX: Z12.31 Encounter for screening mammogram for malignant neoplasm of breast (principal)
CPT/HCPCS: 77063; 77067

== ENCOUNTER 2024-06-27 09:39 | Outpatient (POV) | payer OTHER, SELFPAY ==
[2024-06-27 10:40] VITALS: BP 125/88; PULSE 69; RESP 16; O2SAT 96; BMI 40.6
--- NOTE | 2024-06-27 13:01 | A.OFFVIS_ITS ---
[facility] Disclaimer: The information contained in this section may have been updated after the patient was seen, as this information can be updated by other users. Medical History Migraine Primary brain neoplasm Carotid artery stenosis Left leg pain Fibromyalgia Edema Diastolic dysfunction Insomnia Neuropathy Surgical History History of tubal ligation History of appendectomy Family History Other Family history of [place] (myocardial infarction) Family history of coronary artery disease Social History Smoking Status: Unknown if ever smoked how long ago did patient quit smokin weeks as of 04/08/22 (still vaping but trying to stop) second hand exposure: Yes alcohol intake: never counseling provided: none substance use type: former substance user and marijuana current occupational status: other Travel in the last 8 weeks: None household members: spouse housing: house number of children: 2 current occupational exposures/hazards: No caffeine: No PM Subjective & Objective Subjective Subjective:: Patient is a pleasant 48-year-old female who presents today for medication refill and 3-month follow-up. Today she rates her pain a 7 out of 10. Patient denies any new trauma or injury. Patient does state that she continues to have her chronic aches and pains in her knee as well as increased headaches. Patient states that she is still not had the MRI of her brain that was ordered by Dr. Taylor's office. She states that they were going to do it here at [facility] but once they realized she had the [employer] stimulator that they told her that she would have to go to [place]. Patient states that she has not heard anything additional following this. Patient is asking whether or not our office can be of any assistance to also see about this referral. Patient states the last she knew that she had been told that it had been sent to however she is never heard from this office. Patient states she does continue to have the chronic headaches with brain fog and tunnel vision symptoms. Patient does have a history of brain tumors. Patient does also have a history of heart related problems and had to stop her meloxicam in the past. Patient is currently managed with gabapentin 800 mg 4 times a day and tizanidine 4 mg 3 times a day. She denies any side effects from this medication and is requesting refills. Patient does also state that her stimulator programming is doing fine however she is still never been able to get the remote to work. Her Leonid has been reviewed and is appropriate. Review of Systems: General: No recent weight changes, no fever, no sleep disturbances Respiratory: No cough, no shortness of air, no recurring pulmonary infections Cardiovascular/peripheral vascular: No chest pain, no palpitations, no edema, no shortness of breath Gastrointestinal: No new onset incontinence, normal bowel movements reported Genitourinary: No new onset incontinence Musculoskeletal: Headaches, tunnel vision, brain fog, right knee pain Psychiatric: [Normal mood/affect] Neurological: [Denies weakness in extremities], [denies balance issues] Pain at rest (0-10 scale): 7 Objective Objective:: Physical Exam: General: Alert and oriented x3, no acute distress, pleasant and cooperative Lungs: Respirations even and unlabored, symmetrical chest expansion Eyes: PERRL Musculoskeletal: Flexion and extension of cervical [spine] somewhat guarded secondary to pain, [antalgic gait noted] Neurological: Speech clear, no gross sensory deficit 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 04/02/22 03/25/24 History sublingual tablet recovery spironolactone 25 mg tablet See Rx Instructions .Route 07/14/23 03/25/24 Rx .COMPLEX #30 tabs albuterol sulfate 90 mcg/actuation 2 inh inhalation Q4-6H PRN 09/09/23 03/25/24 Rx aerosol inhaler shortness of breath or wheezing #8.5 grams hydroxyzine pamoate 25 mg capsule 25 mg PO TID PRN itching #60 caps 03/25/24 03/25/24 Rx (Vistaril) rimegepant 75 mg disintegrating 75 mg PO Q OTHER DAY PRN migraine 03/25/24 03/25/24 Rx tablet (Nurtec ODT) headache #10 tabs topiramate 25 mg tablet 25 mg PO BID #60 tabs 09/30/24 Rx amitriptyline 50 mg tablet See Rx Instructions .Route 06/07/24 Rx .COMPLEX #30 tabs aripiprazole 10 mg tablet 10 mg PO QHS antipsychotic #30 tabs 06/07/24 Rx duloxetine 30 mg capsule,delayed See Rx Instructions .Route 06/07/24 Rx release .COMPLEX #30 caps duloxetine 60 mg capsule,delayed See Rx Instructions .Route 06/07/24 Rx release .COMPLEX #30 caps furosemide 40 mg tablet See Rx Instructions .Route 06/07/24 Rx .COMPLEX #30 tabs levothyroxine 50 mcg tablet 50 mcg PO DAILY #90 tabs 06/07/24 Rx (Synthroid) pantoprazole 40 mg tablet,delayed See Rx Instructions .Route 06/07/24 Rx release .COMPLEX #30 tabs gabapentin 800 mg tablet 800 mg PO QID #120 tabs 06/27/24 Rx (Neurontin) tizanidine 4 mg tablet (Zanaflex) 4 mg PO TID #90 tabs 06/27/24 Rx New Prescriptions to Start Prescriptions: gabapentin [Neurontin] Rica Mckeon A tizanidine [Zanaflex] Rica Mckeon Allergies Allergy/AdvReac Type Severity Reaction Status Date / Time codeine (CODEINE) Allergy Intermediate Verified 03/25/24 08:33 Penicillins Allergy Intermediate Verified 03/25/24 08:33 Sulfa (Sulfonamide Allergy Intermediate Rash Verified 03/25/24 08:33 Antibiotics) tramadol Allergy Rash Verified 03/25/24 08:33 Assessment and Plan *Assessment and plan (1) Right knee pain: Status: Acute Qualifiers: Chronicity: acute Qualified Code(s): M25.561 - Pain in right knee Category: Medical Code(s): M25.561 - Pain in right knee (2) Brain lesion: Status: Acute Category: Medical Code(s): G93.9 - Disorder of brain, unspecified (3) Chronic pain: Status: Acute Qualifiers: Chronic pain type: other chronic pain Qualified Code(s): G89.29 - Other chronic pain Category: Medical Code(s): G89.29 - Other chronic pain Plan Patient is experiencing chronic headache with brain fog and tunnel vision with a history of brain lesions. We will also send in a referral to for a MRI with and without without contrast of her brain. We will also reach out to [employer] representatives and see about getting her controller looked at for possible replacement. Patient will be refilled on her gabapentin and tizanidine with a 3-month supply. Patient will return to clinic in 3 months for reevaluation of symptoms and plan of care. Patient has been instructed to contact the clinic with any concerns before the next appointment. Dr. Kohler has reviewed this note and agrees with this plan of care. This note was dictated using voice recognition software and make contain errors or omissions. All injections are used with Lidocaine or Bupivacaine and Depo Medrol.
== END 2024-06-27 23:59 | disposition home or self-care (01) ==
PROVIDERS: PCP Family Medicine; Visit Provider Nurse Practitioner Family
DX: M25.561 Pain in right knee (principal); G89.29 Other chronic pain; G93.9 Disorder of brain, unspecified; Z96.89 Presence of other specified functional implants; Z79.899 Other long term (current) drug therapy
CPT/HCPCS: 99212; G0463

== ENCOUNTER 2024-10-05 10:25 | Outpatient (POV) | payer OTHER, SELFPAY ==
[2024-10-05 10:45] VITALS: BP 140/90; PULSE 80; RESP 18; O2SAT 99; BMI 36.3
--- NOTE | 2024-10-05 10:48 | EXP.PAIN.SOA ---
[facility] Disclaimer: The information contained in this section may have been updated after the patient was seen, as this information can be updated by other users. Medical History Migraine Primary brain neoplasm Carotid artery stenosis Left leg pain Fibromyalgia Edema Diastolic dysfunction Insomnia Neuropathy Surgical History History of tubal ligation History of appendectomy Family History Other Family history of [place] (myocardial infarction) Family history of coronary artery disease Social History Smoking Status: Unknown if ever smoked how long ago did patient quit smokin weeks as of 04/08/22 (still vaping but trying to stop) second hand exposure: Yes alcohol intake: never counseling provided: none substance use type: former substance user and marijuana current occupational status: other Travel in the last 8 weeks: None household members: spouse housing: house number of children: 2 current occupational exposures/hazards: No caffeine: No PM Subjective & Objective Subjective Subjective:: Patient is a pleasant 48-year-old female who presents today for medication refill and worsening pain. Today she rates her pain an 8 out of 10. Patient denies any new trauma or injury however she does state that about 3 weeks ago she started having bilateral feet pain that does radiate into her big toes with swelling and redness. She describes this as a constant pain and does state that she has not made it into see her primary care regarding this however does question whether or not it could be gout. Patient states that she has never had gout before in the past. She does state that she has moved and is in [place] and that Dr. Taylor where she had saw him was found meth. She is in the process of trying to get the provider location closer. Patient is currently managed with gabapentin 800 mg 4 times a day and tizanidine 4 mg 3 times a day from our office. She denies any side effects however does state that the last time she did not get her tizanidine. She states that they did not mention anything about it however it was just not given. Her Leonid has been reviewed and is appropriate. Review of Systems: General: No recent weight changes, no fever, no sleep disturbances Respiratory: No cough, no shortness of air, no recurring pulmonary infections Cardiovascular/peripheral vascular: No chest pain, no palpitations, no edema, no shortness of breath Gastrointestinal: No new onset incontinence, normal bowel movements reported Genitourinary: No new onset incontinence Musculoskeletal: Bilateral feet pain swelling, chronic right knee pain Psychiatric: [Normal mood/affect] Neurological: [Denies weakness in extremities], [denies balance issues] Pain at rest (0-10 scale): 8 Objective Objective:: Physical Exam: General: Alert and oriented x3, no acute distress, pleasant and cooperative Lungs: Respirations even and unlabored, symmetrical chest expansion Eyes: PERRL Musculoskeletal: Flexion and extension of right knee somewhat guarded secondary to pain, [antalgic gait noted] Neurological: Speech clear, no gross sensory deficit Has patient had previous pain injection?: No Conservative treatment options previously tried: Home exercise plan Length of treatment: Longer than 12-week Meds Home Medications and Allergies Home Medications ?Medication ?Instructions ?Recorded ?Confirmed ?Type 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 04/02/22 06/27/24 History sublingual tablet recovery spironolactone 25 mg tablet See Rx Instructions .Route 07/14/23 06/27/24 Rx .COMPLEX #30 tabs hydroxyzine pamoate 25 mg capsule 25 mg PO TID PRN itching #60 caps 03/25/24 06/27/24 Rx (Vistaril) rimegepant 75 mg disintegrating 75 mg PO Q OTHER DAY PRN migraine 03/25/24 06/27/24 Rx tablet (Nurtec ODT) headache #10 tabs gabapentin 800 mg tablet 800 mg PO QID #120 tabs 06/27/24 Rx (Neurontin) tizanidine 4 mg tablet (Zanaflex) 4 mg PO TID #90 tabs 06/27/24 Rx furosemide 40 mg tablet See Rx Instructions .Route 08/04/24 Rx .COMPLEX #30 tabs albuterol sulfate 90 mcg/actuation See Rx Instructions .Route 09/08/24 Rx aerosol inhaler .COMPLEX #8.5 grams amitriptyline 50 mg tablet See Rx Instructions .Route 09/08/24 Rx .COMPLEX #30 tabs aripiprazole 10 mg tablet See Rx Instructions .Route 09/08/24 Rx .COMPLEX #30 tabs duloxetine 30 mg capsule,delayed See Rx Instructions .Route 09/08/24 Rx release .COMPLEX #30 caps duloxetine 60 mg capsule,delayed See Rx Instructions .Route 09/08/24 Rx release .COMPLEX #30 caps levothyroxine 50 mcg tablet See Rx Instructions .Route 09/08/24 Rx .COMPLEX #30 tabs pantoprazole 40 mg tablet,delayed See Rx Instructions .Route 09/08/24 Rx release .COMPLEX #30 tabs topiramate 25 mg tablet See Rx Instructions .Route 10/05/24 Rx .COMPLEX #60 tabs New Prescriptions to Start Prescriptions: Allergies Allergy/AdvReac Type Severity Reaction Status Date / Time codeine (CODEINE) Allergy Intermediate Verified 03/25/24 08:33 Penicillins Allergy Intermediate Verified 03/25/24 08:33 Sulfa (Sulfonamide Allergy Intermediate Rash Verified 03/25/24 08:33 Antibiotics) tramadol Allergy Rash Verified 03/25/24 08:33 Assessment and Plan *Assessment and plan (1) Bilateral foot pain: Status: Acute Category: Medical Code(s): M79.671 - Pain in right foot; M79.672 - Pain in left foot (2) Right knee pain: Status: Acute Qualifiers: Chronicity: acute Qualified Code(s): M25.561 - Pain in right knee Category: Medical Code(s): M25.561 - Pain in right knee Plan Patient is having worsening pain and swelling with redness in her bilateral feet. I did review over with her that I can order a uric acid level to see whether or not if it is elevated to rule out gout. I have recommended that she make a follow-up appointment with her primary care as soon as possible and did discuss with her that she may be able to go to the [facility]'s clinic on [address] [facility] that is still in connection with Dr. Taylor's office. Patient acknowledges understanding agrees with this plan of care. I will send in a 3-month supply of the gabapentin and tizanidine. Patient will return to clinic in 3 months. Patient has been instructed to contact the clinic with any concerns before the next appointment. Dr. Kohler has reviewed this note and agrees with this plan of care. This note was dictated using voice recognition software and make contain errors or omissions. All injections are used with Lidocaine, Bupivacaine and Depo Medrol. Occasionally urine drug screen is needed to verify patient's compliance with our office pain contract. This is ordered based off specific treatments related to chronic pain with the potential to abuse certain medications.
[2024-10-05 16:34] LABS: Uric Acid 7.1 mg/dl (2.5-6.2)
== END 2024-10-05 23:59 | disposition home or self-care (01) ==
PROVIDERS: PCP Family Medicine; Visit Provider Nurse Practitioner Family
DX: M79.671 Pain in right foot (principal); M79.672 Pain in left foot; M25.561 Pain in right knee; Z79.899 Other long term (current) drug therapy
CPT/HCPCS: 36415; 84550; 99212; G0463

== ENCOUNTER 2024-10-17 11:36 | Outpatient (CLI) | payer OTHER, SELFPAY ==
--- NOTE | 2024-10-17 11:39 | XR_ITS ---
FINAL REPORT TECHNIQUE: Left foot 4 views CLINICAL HISTORY: L ankle/foot pain COMPARISON: None FINDINGS: LEFT FOOT: 4 views of the left foot were obtained without prior films available for comparison purposes. No acute bony abnormality is identified. There is a cyst or erosion involving the medial aspect of the first metatarsal head. IMPRESSION: No acute bony abnormality. Cystoscopy erosion involving the medial aspect of the first metatarsal head. Reviewed, Interpreted and Dictated by Jean West MD Transcribed by Yumi Nelson Authenticated and [facility]
--- NOTE | 2024-10-17 11:39 | XR_ITS ---
FINAL REPORT TECHNIQUE: Left ankle 3 views CLINICAL HISTORY: L foot pain COMPARISON: None FINDINGS: LEFT ANKLE: 3 views of the left ankle were obtained with no prior films available for comparison purposes. The ankle mortise is intact. No acute fracture or dislocation is present. Mild soft tissue swelling is noted about the ankle. IMPRESSION: Mild soft tissue swelling about the ankle, without acute bony abnormality. Reviewed, Interpreted and Dictated by Jean West MD Transcribed by Yumi Nelson Authenticated and [facility]
== END 2024-10-17 23:59 | disposition home or self-care (01) ==
LOC: RAD 11:38
PROVIDERS: PCP Family Medicine; Visit Provider Student in an Organized Health Care Education/Training Program
DX: M79.672 Pain in left foot (principal); M25.572 Pain in left ankle and joints of left foot
CPT/HCPCS: 73610; 73630

== ENCOUNTER 2024-12-29 10:05 | Outpatient (POV) | payer OTHER, SELFPAY ==
--- NOTE | 2024-12-29 10:24 | EXP.PAIN.SOA ---
[facility] Disclaimer: The information contained in this section may have been updated after the patient was seen, as this information can be updated by other users. Medical History Migraine Primary brain neoplasm Carotid artery stenosis Left leg pain Fibromyalgia Edema Diastolic dysfunction Insomnia Neuropathy Surgical History History of tubal ligation History of appendectomy Family History Other Family history of [place] (myocardial infarction) Family history of coronary artery disease Social History (Updated 10/17/24 @ 15:04 by Lisseth Clayton MA) Smoking Status: Current every day smoker tobacco type: e-cigarettes how long ago did patient quit smokin weeks as of 04/08/22 (still vaping but trying to stop) second hand exposure: Yes alcohol intake: never counseling provided: none substance use type: former substance user and marijuana current occupational status: other Travel in the last 8 weeks?: None household members: spouse housing: house number of children: 2 current occupational exposures/hazards: No caffeine: No PM Subjective & Objective Subjective Subjective:: Patient is a pleasant 49-year-old female who presents today for medication refill and follow-up. Today she rates her pain a 7 out of 10. She denies any new trauma or injury. She is currently managed with gabapentin 800 mg 4 times a day and tizanidine 4 mg 3 times a day. She denies any side effects. She does state that she still been having trouble with her pharmacy only giving her a 1 month supply of the tizanidine. Patient is requesting a pharmacy to be at [facility] in [place]. She denies any other changes. Her Leonid has been reviewed and is appropriate. Review of Systems: General: No recent weight changes, no fever, no sleep disturbances Respiratory: No cough, no shortness of air, no recurring pulmonary infections Cardiovascular/peripheral vascular: No chest pain, no palpitations, no edema, no shortness of breath Gastrointestinal: No new onset incontinence, normal bowel movements reported Genitourinary: No new onset incontinence Musculoskeletal: Low back pain Psychiatric: [Normal mood/affect] Neurological: [Denies weakness in extremities], [denies balance issues] Pain at rest (0-10 scale): 7 Objective Objective:: Physical Exam: General: Alert and oriented x3, no acute distress, pleasant and cooperative Lungs: Respirations even and unlabored, symmetrical chest expansion Eyes: PERRL Musculoskeletal: Flexion and extension of lumbar [spine] somewhat guarded secondary to pain, [antalgic gait noted] Neurological: Speech clear, no gross sensory deficit Has patient had previous pain injection?: No Conservative treatment options previously tried: Prescription medications Length of treatment: Longer than 12 weeks Meds Home Medications and Allergies Home Medications ?Medication ?Instructions ?Recorded ?Confirmed ?Type 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 04/02/22 10/17/24 History sublingual tablet recovery gabapentin 800 mg tablet 800 mg PO QID #120 tabs 10/06/24 10/17/24 Rx (Neurontin) tizanidine 4 mg tablet (Zanaflex) 4 mg PO TID #90 tabs 10/06/24 10/17/24 Rx indomethacin 50 mg capsule 50 mg PO TID 7 days #21 caps 10/17/24 10/17/24 Rx prednisone 20 mg tablet See Rx Instructions .Route 10/17/24 10/17/24 Rx .COMPLEX #15 tabs albuterol sulfate 90 mcg/actuation See Rx Instructions .Route 11/02/24 Rx aerosol inhaler .COMPLEX #8.5 grams buspirone 15 mg tablet 15 mg PO BID #60 tabs 11/02/24 Rx hydroxyzine pamoate 25 mg capsule 25 mg PO TID PRN itching #60 caps 11/02/24 Rx (Vistaril) levothyroxine 50 mcg tablet See Rx Instructions .Route 11/02/24 Rx .COMPLEX #30 tabs pantoprazole 40 mg tablet,delayed See Rx Instructions .Route 11/02/24 Rx release .COMPLEX #30 tabs topiramate 25 mg tablet See Rx Instructions .Route 11/02/24 Rx .COMPLEX #60 tabs duloxetine 30 mg capsule,delayed See Rx Instructions .Route 11/07/24 Rx release .COMPLEX #30 caps amitriptyline 50 mg tablet See Rx Instructions .Route 11/08/24 Rx .COMPLEX #30 tabs aripiprazole 10 mg tablet See Rx Instructions .Route 11/08/24 Rx .COMPLEX #30 tabs duloxetine 60 mg capsule,delayed See Rx Instructions .Route 11/08/24 Rx release .COMPLEX #30 caps furosemide 40 mg tablet See Rx Instructions .Route 11/16/24 Rx .COMPLEX #30 tabs New Prescriptions to Start Prescriptions: Allergies Allergy/AdvReac Type Severity Reaction Status Date / Time codeine (CODEINE) Allergy Intermediate Verified 10/17/24 15:02 Penicillins Allergy Intermediate Verified 10/17/24 15:02 Sulfa (Sulfonamide Allergy Intermediate Rash Verified 10/17/24 15:02 Antibiotics) tramadol Allergy Rash Verified 10/17/24 15:02 Assessment and Plan *Assessment and plan (1) Neuropathy: Status: Chronic Category: Medical Code(s): G62.9 - Polyneuropathy, unspecified Plan I will refill her gabapentin and tizanidine and do a 90-day supply there at [facility] in [place]. Patient was counseled where we have been sending in typically a 1 month supply with 2 refills. Patient agrees with this plan of care. Patient will return to clinic in 3 months. Patient has been instructed to contact the clinic with any concerns before the next appointment. Dr. Kohler has reviewed this note and agrees with this plan of care. This note was dictated using voice recognition software and make contain errors or omissions. All injections are used with Lidocaine, Bupivacaine and dexamethasone. Occasionally urine drug screen is needed to verify patient's compliance with our office pain contract. This is ordered based off specific treatments related to chronic pain with the potential to abuse certain medications.
[2024-12-29 10:34] VITALS: BP 110/72; PULSE 71; RESP 14; O2SAT 100; BMI 34.0
== END 2024-12-29 23:59 | disposition home or self-care (01) ==
PROVIDERS: PCP Family Medicine; Visit Provider Nurse Practitioner Family
DX: G62.9 Polyneuropathy, unspecified (principal); F17.290 Nicotine dependence, other tobacco product, uncomplicated; Z79.899 Other long term (current) drug therapy
CPT/HCPCS: 99212; G0463

== ENCOUNTER 2025-03-30 09:29 | Outpatient (POV) | payer OTHER, SELFPAY ==
--- OUTSIDE RECORDS SUMMARY | 2025-03-30 09:45 | XMS_ITS | Encounter Summary ---
Author Organization [facility] Address [address] [place] [address] Care Team Providers Care Test Equipment Mechanic Name Role Phone Jeevan Kevin MD Primary Care Provider + [phone] Reason for Referral * Consultation (Routine) - Authorized Specialty Diagnoses / Procedures Referred By Contac t Referred To Contact Neurosurgery Diagnoses Neoplasm of brain (CMS/HCC) Elian Taylor MD [address] [place] [address] Phone: tel: fax: Referral ID Status Reason Start Date Expiration Date Visits Requested Visits Authorized [id number] Authorized Specialty Services Required 02/02/2024 08/03/2025 1 1 Encounter Details Date Type Department Care Team (Late st Contact Info) Description 02/02/2024 Community [facility] [address] [place] [address] [place] [address] [place] [id number] Neoplasm of brain (CMS/HCC) (Primary Dx) Social History Tobacco Use Types Packs/Day Years Used Date Smoking Tobacco: Every Day Comments:Smokes 11 to 20 cig arettes per day Alcohol Use Standard Drinks/Week Comments No 0 (1 standard drink = 0.6 oz pur e alcohol) Comments Unknown Sex and Gender Information Value Date Recorded Sex Assigned at Not on file Legal Sex Female 6:33 PM EDT Gender Identity Not on file Sexual Orientation Not on file documented as of this encounter Plan of Treatment Scheduled Referrals Name Type Priority Associated Diagnoses Order Schedule Ambulatory Referral to Neurosurgery Outpatient Referral Routine Neoplasm of brain (CMS/HCC) Expected: 02/02/2024 (Approximate), Expires: 08/03/2025 documented as of this encounter Visit Diagnoses Diagnosis Neoplasm of brain (CMS/HCC)- Primary Neoplasm of unspecified nature of brain documented in this encounter Care Teams Test Equipment Mechanic Relationship Specialty Start Date End Date Jeevan Kevin MD [address] [place] [address] PCP - General 12/21/20 documented as of this encounter
--- OUTSIDE RECORDS SUMMARY | 2025-03-30 09:45 | XMS_ITS | Encounter Summary ---
Author Organization [facility] Address [address] [place] [address] Care Team Providers Care Line Construction Superintendent Name Role Phone Jeevan Kevin MD Primary Care Provider + [phone] Encounter Details Date Type Department Care Team (Late st Contact Info) Description 11/08/2024 Orders Only External Location [address] [place] [address] Provider, External Social History Tobacco Use Types Packs/Day Years [...] as of this encounter Plan of Treatment Not on file documented as of this encounter Procedures Procedure Name Priority Date/Time Associated Diagnosis Comments CT NEURO OUTSIDE IMAGES 11/08/2024 9:46 AM EDT documented in this encounter Results * CT NEURO OUTSIDE IMAGES (11/08/2024 9:46 AM EDT) Anatomical Region Laterality Modality Computed Tomogra phy 11/08/2024 9:46 AM EDT us External Provider IMG CT PROCEDURES Final Result documented in this encounter Visit Diagnoses Not on filedocumented in this encounter Care Teams Line Construction Superintendent Relationship Specialty Start Date End Date Jeevan Kevin MD [address] [place] [address] [id number] PCP - General 12/21/20 documented as of this encounter
--- OUTSIDE RECORDS SUMMARY | 2025-03-30 09:45 | XMS_ITS | Encounter Summary ---
Author Organization [facility] Address [address] [place] [address] Care Team Providers Care Latex Foam Worker Name Role Phone Jeevan Kevin MD Primary Care Provider [phone] Reason for Referral * Consultation (Routine) - Closed Specialty Diagnoses / Procedures Referred By Contac t Referred To Contact Neurosurgery Diagnoses Brain disorder Elian Taylor MD [address] [place] [address] Phone: tel: fax: Ross Loya MD [id number] [place] [address] Phone: tel: fax: Referral ID Status Reason Start Date Expiration Date V isits Requested Visits Authorized [id number] Closed Specialty Services Required 10/19/2024 04/20/2026 1 1 Encounter Details Date Type Department Care Team (Late st Contact Info) Description 10/19/2024 [facility] [address] [place] [address] Elian Taylor MD [address] [place] [address] Brain disorder (Primary Dx) Social History Tobacco Use Types [...] Ambulatory Referral to Neurosurgery Outpatient Referral Routine Brain disorder Expected: 10/19/2024 (Approximate), Expires: 04/21/2026 documented as of this encounter Visit Diagnoses Diagnosis Brain disorder- Primary Unspecified condition of brain documented in this encounter Care Teams Latex Foam Worker Relationship Specialty Start Date End Date Jeevan Kevin MD [address] [place] [address] PCP - General 12/21/20 documented as of this encounter
--- OUTSIDE RECORDS SUMMARY | 2025-03-30 09:45 | XMS_ITS | Clinical Summary ---
Author Organization [facility] Address [address] [place] [address] Care Team Providers Care Allocation Analyst Name Role Phone Jeevan Kevin MD Primary Care Provider + [phone] Allergies Active Allergy Reactions Criticality Noted Date Comments Codeine Unknown - Patient st ates they do not know rxn details High 01/28/2017 Penicillins Unknown - Patient st ates they do not know rxn details High 01/28/2017 Tramadol Hives Medium 02/01/2024 Medications indomethacin (Indocin) 50 MG capsule 5 Active meloxicam (Mobic) 7.5 MG tablet Take 1 tablet by mouth 1 time each day. Active aspirin 81 MG EC tablet 9 Active buprenorphine-n aloxone (Suboxone) 8-2 MG SL tablet DISSOLVE ONE AND 3/4 tablets UNDER THE TONGUE EVERY DAY Active busPIRone (Buspar) 10 MG tablet Take 1 tablet by mouth 3 times a day. Active hydrOXYzine pamoate (Vistaril) 25 MG capsule TAKE 1 CAPSULE BY MOUTH THREE TIMES DAILY NEEDED FOR ITCHING 5 Active albuterol 108 (90 Base) MCG/ACT inhaler INHALE 2 PUFFS BY MOUTH EVERY 4 TO 6 HOURS NEEDED FOR SHORTNESS OF BREATH OR WHEEZING Active gabapentin (Neurontin) 800 MG tablet 1 tablet. 9 Active Topiramate ER 25 MG capsule extended-releas e 24 hour sprinkle 9 Active DULoxetine (Cymbalta) [address] capsule 5 Active DULoxetine (Cymbalta) [address] capsule 5 Active ARIPiprazole (Abilify) 10 MG tablet 1 tablet. 3 Active predniSONE (Deltasone) 20 MG tablet 5 Active furosemide (Lasix) 40 MG tablet .COMPLEX 9 Active tiZANidine (Zanaflex) 4 MG tablet 1 tablet. 4 Active levothyroxine (Synthroid, Levoxyl) 50 MCG tablet daily. 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 Family History Medical History Relation Name Comments Diabetes Father Cardiac disorder Mother Emphysema Mother Seizures Mother Relation Name Status Comments Father Mother Social History Tobacco Use Types Packs/Day Years Used Date Smoking Tobacco: Former Cigarettes Smokeless Tobacco: Current Tobacco Cessation:Ready to Q uit: Not Asked; Counseling Given: Not Answered Comments:Smokes 11 to 20 cigarettes per day Alcohol Use Standard Drinks/Week Comments No 0 (1 standard drink = 0.6 oz pur e alcohol) Comments Unknown Sex and Gender Information Value Date Recorded Sex Assigned at Not on file Legal Sex Female 6:33 PM EDT Gender Identity Not on file Sexual Orientation Not on file Last Filed Vital Signs Vital Sign Reading Time Taken Comments Blood Pressure 126/88 12/08/2024 9:21 AM EDT Pulse 81 04/25/2020 2:42 PM EDT Temperature 37.1 C (98.8 F) 04/25/2020 2:42 PM EDT Respiratory Rate - - Oxygen Saturation - - Inhaled Oxygen Concentration - - Weight 106 kg (233 lb) 12/08/2024 9:21 AM EDT Height 175.3 cm (5' 9 ) 12/08/2024 9:21 AM EDT Body Mass Index 34.41 12/08/2024 9:21 AM EDT Plan of Treatment Health Maintenance Due Date Last Done Comments [facility]-Depression Screening 1976 [facility]-/Child/Adol SDOH Screenings 1976 [facility]- SDOH Screenings 1994 [facility]-Adult SDOH Screenings 1994 [facility]-DTaP,Tdap,and Td Vaccines (1 - Tdap) 10/13/1995 [facility]-Hepatitis B Vaccines (1 of 3 - 19+ 3-dose series) 10/13/1995 [facility]-Pap Smear 1997 [facility]-Cervical Cancer Screening 2006 [facility]-HPV/Cotest 2006 CT Colonography 2021 Colonoscopy 2021 FIT-DNA 2021 FIT 2021 FOBT 2021 Sigmoidoscopy 2021 [facility]-Colorectal Cancer Screening 2021 [id number]-99 Vaccine ( season) 2024 05/09/2023, 11/17/2021, 01/26/2021, Additional history exists [facility]-Influenza Vaccine (#1) 04/10/202510/17, 06/02/2023, 06/16/2022, Additional history exists [facility]-Zoster Vaccines (1 of 2) 2026 [facility]-Pneumococcal Vaccine: Pediatrics (0 to 5 Years) and At-Risk Patients (6 to 49 Years) Aged Out 05/27/2017, 05/27/2017 No longer eligibl e based on patient's age to complete this topic HPV Vaccines Aged Out No longer eligi ble based on patient's age to complete this topic [facility]-HIB Vaccines Aged Out No longer e ligible based on patient's age to complete this topic [facility]-Hepatitis A Vaccines Aged Out No longer eligible based on patient's age to complete this topic [facility]-IPV Vaccines Aged Out No longer e ligible based on patient's age to complete this topic [facility]-Rotavirus Vaccines Aged Out No lo nger eligible based on patient's age to complete this topic Insurance [facility] MEDICAID Care Teams Allocation Analyst Relationship Specialty Start Date End Date Jeevan Kevin MD [address] [place] [address] PCP - General 12/21/20
--- OUTSIDE RECORDS SUMMARY | 2025-03-30 09:45 | XMS_ITS | Encounter Summary ---
Author Organization [facility] Address [address] [place] [address] Care Team Providers Care Literary Writer Name Role Phone Jeevan Kevin MD Primary Care Provider [phone] Reason for Referral * Consultation (Routine) - Authorized Specialty Diagnoses / Procedures Referred By Jono t Referred To Contact Neurosurgery Diagnoses Brain neoplasm (CMS/HCC) Kiko Barnard APRN [address] [place] [address] Phone: tel: fax: Referral ID Status Reason Start Date Expiration Date Visits Requested Visits Authorized [id number] Authorized Specialty Services Required 03/28/2024 09/27/2025 1 1 Encounter Details Date Type Department Care Team (Late st Contact Info) Description 03/28/2024 [facility] [address] [place] [address] Kiko Barnard APRN [address] [place] [address] Brain neoplasm (CMS/HCC) (Primary Dx) Social History Tobacco Use [...] Referral to Neurosurgery Outpatient Referral Routine Brain neoplasm (CMS/HCC) 1 Occurrences starting 03/28/2024 until 09/28/2025 documented as of this encounter Visit Diagnoses Diagnosis Brain neoplasm (CMS/HCC)- Primary Neoplasm of unspecified nature of brain documented in this encounter Care Teams Literary Writer Relationship Specialty Start Date End Date Jeevan Kevin MD [address] [place] [address] PCP - General 12/21/20 documented as of this encounter
[2025-03-30 10:04] VITALS: BP 129/78; PULSE 74; RESP 14; O2SAT 100; BMI 31.3
--- NOTE | 2025-03-30 10:35 | XR_ITS ---
FINAL REPORT CLINICAL HISTORY: RT KNEE PAIN FINDINGS: RIGHT KNEE 3 views of the right knee were obtained. There is no acute fracture or dislocation. Mild hypertrophic changes are seen of the medial and lateral joint. There is a minimal joint effusion. Visualized joint spaces are normally aligned. Soft tissues are unremarkable. IMPRESSION: Mild to moderate changes of osteoarthritis without acute bony abnormality. Reviewed, Interpreted and Dictated by Jean West MD Transcribed by Lori Walls Authenticated and [facility]
--- NOTE | 2025-03-30 10:39 | A.OFFVIS_ITS ---
[facility] Disclaimer: The information contained in this section may have been updated after the patient was seen, as this information can be updated by other users. Medical History Migraine Primary brain neoplasm Carotid artery stenosis Left leg pain Fibromyalgia Edema Diastolic dysfunction Insomnia Neuropathy Surgical History History of tubal ligation History of appendectomy Family History Other Family history of [place] (myocardial infarction) Family history of coronary artery disease Social History (Updated 10/17/24 @ 15:04 by Lisseth Clayton MA) Smoking Status: Current every day smoker tobacco type: e-cigarettes how long ago did patient quit smokin weeks as of 04/08/22 (still vaping but trying to stop) second hand exposure: Yes alcohol intake: never counseling provided: none substance use type: former substance user and marijuana current occupational status: other Travel in the last 8 weeks?: None household members: spouse housing: house number of children: 2 current occupational exposures/hazards: No caffeine: No PM Subjective & Objective Subjective Subjective:: Patient is a pleasant 49-year-old female who presents today for her 3-month follow-up and medication refill. Patient is also complaining of a lot more pain still in her right knee which is chronic. She rates that as 7 out of 10. Patient has had this pain for 1 to 2 years unrelated to any specific trauma or injury. Patient did see an orthopedic provider here at [facility] who did x-ray imaging and stated there was not anything there for him to do. She denies ever trying advanced imaging. Patient does have complaints of worsening pain when she is up walking or moving and does state that she has a lot of swelling in the right knee. Patient is concerned that she may have something more going on. Patient is currently managed with gabapentin 800 mg 4 times a day and tizanidine 4 mg 3 times a day from our office. She denies any side effects. Her Leonid has been reviewed and is appropriate. Review of Systems: General: No recent weight changes, no fever, no sleep disturbances Respiratory: No cough, no shortness of air, no recurring pulmonary infections Cardiovascular/peripheral vascular: No chest pain, no palpitations, no edema, no shortness of breath Gastrointestinal: No new onset incontinence, normal bowel movements reported Genitourinary: No new onset incontinence Musculoskeletal: Chronic right knee pain Psychiatric: [Normal mood/affect] Neurological: [Denies weakness in extremities], [denies balance issues] Pain at rest (0-10 scale): 7 Objective Objective:: Physical Exam: General: Alert and oriented x3, no acute distress, pleasant and cooperative Lungs: Respirations even and unlabored, symmetrical chest expansion Eyes: PERRL Musculoskeletal: Flexion and extension of right knee somewhat guarded secondary to pain, [antalgic gait noted] Neurological: Speech clear, no gross sensory deficit FINDINGS: Bones/joints: There is moderate tricompartmental osteoarthritis, lateral compartment predominant. No acute fracture is evident. There is no joint effusion. Soft tissues: Normal. IMPRESSION: No acute fracture. Moderate tricompartmental osteoarthritis, lateral compartment predominant. 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 04/02/22 03/30/25 History sublingual tablet recovery prednisone 20 mg tablet See Rx Instructions .Route 0 10/17/24 03/30/25 Rx .COMPLEX #15 tabs gabapentin 800 mg tablet 800 mg PO QID #360 tabs 12/0903/30/25 Rx (Neurontin) tizanidine 4 mg tablet (Zanaflex) 4 mg PO TID #270 tab s 12/29/24 03/30/25 Rx albuterol sulfate 90 mcg/actuation See Rx Instructions .Route 02/03/25 03/30/25 Rx aerosol inhaler .COMPLEX #8.5 grams amitriptyline 50 mg tablet See Rx Instructions .Route 02/03/25 03/30/25 Rx .COMPLEX #30 tabs aripiprazole 10 mg tablet See Rx Instructions .Route 0 02/03/25 03/30/25 Rx .COMPLEX #30 tabs buspirone 15 mg tablet 15 mg PO BID #60 tabs 03/30/25 Rx duloxetine 60 mg capsule,delayed See Rx Instructions . Route 02/03/25 03/30/25 Rx release .COMPLEX #30 caps furosemide 40 mg tablet See Rx Instructions .Route 0 02/03/25 03/30/25 Rx .COMPLEX #30 tabs hydroxyzine pamoate 25 mg capsule 25 mg PO TID PRN itc dagmar #60 caps 02/03/25 03/30/25 Rx (Vistaril) levothyroxine 50 mcg tablet See Rx Instructions .Route 02/03/25 03/30/25 Rx .COMPLEX #30 tabs pantoprazole 40 mg tablet,delayed See Rx Instructions .Route 02/03/25 03/30/25 Rx release .COMPLEX #30 tabs topiramate 25 mg tablet See Rx Instructions .Route 0 02/03/25 03/30/25 Rx .COMPLEX #60 tabs New Prescriptions to Start Prescriptions: Allergies Allergy/AdvReac Type Severity Reaction Status Date / Time codeine (CODEINE) Allergy Intermediate Verified 10/17/24 15:02 Penicillins Allergy Intermediate Verified 10/17/24 15:02 Sulfa (Sulfonamide Allergy Intermediate Rash Verified 10/17/24 15:02 Antibiotics) tramadol Allergy Rash Verified 10/17/24 15:02 Assessment and Plan *Assessment and plan (1) Right knee pain: Status: Acute Qualifiers: Chronicity: acute Qualified Code(s): M25.561 - Pain in right knee Category: Medical Code(s): M25.561 - Pain in right knee Plan Patient is experiencing worsening pain in her right knee that is a chronic issue that is going on nearly 2 years. Patient has tried and failed conservative therapy including oral medication, heat and ice, topicals, physical therapy and continued at home stretching exercise for longer than 12 weeks that was physician guided. I did discuss with the patient that I will order x-ray imaging of her right knee as well as an MRI without contrast of her right knee to follow. Patient is requesting this to be done in [place]. We will send a paper order of the x-ray and submit for the MRI once we have a copy of the findings from the initial imaging. I did also discuss with patient in future we will plan on proceeding forward to send a referral to another orthopedic office for a second opinion. I will refill her gabapentin and tizanidine and make sure she has a 3-month supply of this medication. Patient will return to clinic in 1 month following her imaging results. Patient has been instructed to contact the clinic with any concerns before the next appointment. Dr. Kohler has reviewed this note and agrees with this plan of care. This note was dictated using voice recognition software and make contain errors or omissions. All injections are used with Lidocaine, Bupivacaine and dexamethasone. Occasionally urine drug screen is needed to verify patient's compliance with our office pain contract. This is ordered based off specific treatments related to chronic pain with the potential to abuse certain medications.
== END 2025-03-30 23:59 | disposition home or self-care (01) ==
PROVIDERS: PCP Family Medicine; Visit Provider Nurse Practitioner Family
DX: M25.561 Pain in right knee (principal); Z79.899 Other long term (current) drug therapy
CPT/HCPCS: 73562; 99212; G0463

== ENCOUNTER 2025-07-05 10:45 | Outpatient (CLI) | payer OTHER, SELFPAY ==
[2025-07-05 18:16] LABS: Alanine Aminotransferase 18 U/L (12-78); Albumin Level 4.5 g/dl (3.5-5.0); Albumin/Globulin Ratio 1.6 (1.1-1.8); Alkaline Phosphatase 78 U/L (38-126); Anion Gap 9.9 mEq/L (5-15); Aspartate Amino Transferase 25 U/L (14-36); Bilirubin,Total 0.7 mg/dl (0.2-1.3); Blood Urea Nitrogen 11 mg/dl (7-17); Calcium 9.4 mg/dl (8.4-10.2); Carbon Dioxide 26 mmol/L (22.0-30.0); Chloride 104 mmol/L (98-107); Cholesterol 152 mg/dl (140-200); Creatinine,Serum 0.80 mg/dl (0.52-1.04); Estimated Glomerular Filt Rate 77 ml/min (>60); GFR (African American) 93 ML/MIN (>60); Globulin 2.9 g/dL (1.3-3.2); Glucose 74 mg/dl (74-100); HDL Cholesterol 72 mg/dl (40-60); Potassium 3.9 mmoL/L (3.5-5.1); Sodium 136 mmol/L (136-145); Total Protein,Serum 7.4 g/dl (6.3-8.2); Triglycerides 78 mg/dl (30-150)
[2025-07-05 18:23] LABS: Hematocrit 43.4 % (37.0-47.0); Hemoglobin 13.8 g/dL (12.2-16.2); Immature Granulocytes % 0.3 %; Mean Corpuscular HGB Conc 31.8 g/dL (31.8-35.4); Mean Corpuscular Hemoglobin 29.0 pg (27.0-31.2); Mean Corpuscular Volume 91.2 fl (81-99); Nucleated Red Blood Cells % 0 %; Platelet Count 208 K/mm3 (142-424); Red Blood Count 4.76 M/mm3 (4.20-5.40); Red Cell Distribution Width-SD 47.4 fL; White Blood Count 7.1 K/mm3 (4.8-10.8)
[2025-07-05 18:47] LABS: Thyroid Stimulating Hormone 0.75 uIU/mL (0.465-4.68)
[2025-07-05 20:29] LABS: Hepatitis C Ab Qual. W/ RFX NEGATIVE (Negative)
[2025-07-08 03:36] LABS: Hepatitis B Surface Antigen Negative (Negative)
--- OUTSIDE RECORDS SUMMARY | 2025-07-10 11:34 | XMS_ITS | Clinical Summary ---
Author Organization [facility] Address [address] [place] [address] Care Team Providers Care Flight Attendant Name Role Phone Jeevan Kevin MD Primary Care Provider + [phone] Allergies Active Allergy Reactions Criticality Noted Date [...] Date Last Done Comments [facility]-Depression Screening 1976 [facility]-HIV Screening 1976 [facility]-/Child/Adol SDOH Screenings 1976 [facility]- SDOH Screenings 1994 [facility]-Adult SDOH Screenings 1994 [facility]-DTaP,Tdap,and Td Vaccines (1 - Tdap) 10/13/1995 [facility]-Hepatitis B Vaccines (1 of 3 - 19+ 3-dose series) 10/13/1995 [facility]-Zoster Vaccines (1 of 2) 10/13/1995 CT Colonography 2021 Colonoscopy 2021 FIT-DNA 2021 FIT 2021 FOBT 2021 Sigmoidoscopy 2021 [facility]-Colorectal Cancer Screening 2021 [id number] Vaccine ( season) 2025 05/09/2023, 11/17/2021, 01/26/2021, Additional history exists [facility]-Influenza Vaccine (#1) 04/10/202510/17, 06/02/2023, 06/16/2022, Additional history exists [facility]-Pneumococcal Vaccine: Pediatrics (0 to 5 Years) and At-Risk Patients (6 to 49 Years) Aged Out 05/27/2017, 05/27/2017 No longer eligibl e based on patient's age to complete this topic [facility]-Hepatitis C Screening Completed 01/19/2019 [facility]-Obesity Intervention Completed 12/08/2024 HPV Vaccines Aged Out No longer eligi [...] on patient's age to complete this topic Medical Devices Implanted Type Area Contracting Manager Device Identifier Shelf Expiration Date Model / Serial / Lot Wavewriter Alpha 16 Contact Ipg Implanted:06/10 (Quantity not on file) Spinal Cord Stimulator Back Reocar [id number] / [id number] / Description:LEAD qty2, MODEL : [id number], implant date 08/31/2019 Procedures Procedure Name Priority Date/Time Associated Diagnosis Comments HEPATITIS C ANTIBODY W/REFLEX TO HCV QUANT PCR Routine 01/19/2019 1:40 PM EDT from Last 3 Months or Most Recently Relevant to Health Maintenance Results * Hepatitis C Antibody (01/19/2019 1:40 PM EDT) Hepatitis C Antibody NEGATIVE Reference Range: Negative SUNQUEST 01/19/2019 1:40 PM EDT 01/19/2019 3:46 PM EDT us Shaneka Waffdenisse REAL ESTATE DIRECTOR LAB BLOOD ORDERABLES Final Res ult SUNQUEST from Last 3 Months or Most Recently Relevant to Health Maintenance Insurance [employer]ICA[employer] Care Teams Flight Attendant Relationship Specialty Start Date End Date Jeevan Kevin MD [address] [place] [id number] PCP - General 12/21/20
--- OUTSIDE RECORDS SUMMARY | 2025-07-10 11:34 | XMS_ITS | Encounter Summary ---
Author Organization [facility] Address [address] [place] [address] Care Team Providers Care Manager Chemical Name Role Phone Jeevan Kevin MD Primary Care Provider + [phone] Encounter Details Date Type Department Care Team (Late st Contact Info) Description 11/08/2024 Orders Only External Location [address] [place] [address] Provider, External Social History Tobacco Use Types [...] on filedocumented in this encounter Care Teams Manager Chemical Relationship Specialty Start Date End Date Jeevan Kevin MD [address] [place] [address] [id number] PCP - General 12/21/20 documented as of this encounter
--- OUTSIDE RECORDS SUMMARY | 2025-07-10 11:34 | XMS_ITS | Encounter Summary ---
Author Organization [facility] Address [address] [place] [address] Care Team Providers Care Erosion Control Specialist Name Role Phone Jeevan Kevin MD Primary Care Provider [phone] Reason for Referral * Consultation (Routine) - Closed Specialty Diagnoses / Procedures Referred By Contac t Referred To Contact Neurosurgery Diagnoses Brain disorder Elian Taylor MD [address] [place] [address] Phone: tel: fax: Ross Loya MD [id number] [place] [address] Phone: tel: fax: Referral ID Status Reason Start Date Expiration Date V isits Requested Visits Authorized [id number] Closed Specialty Services Required 10/19/2024 04/20/2026 1 1 Encounter Details Date Type Department Care Team (Late st Contact Info) Description 10/19/2024 Community [facility] [address] [place] [address] Elian Taylor MD [address] [place] [address] Brain disorder (Primary Dx) Social History Tobacco [...] brain documented in this encounter Care Teams Erosion Control Specialist Relationship Specialty Start Date End Date Jeevan Kevin MD [address] [place] [address] PCP - General 12/21/20 documented as of this encounter
--- OUTSIDE RECORDS SUMMARY | 2025-07-10 11:34 | XMS_ITS | Encounter Summary ---
Author Organization [facility] Address [address] [place] [address] Care Team Providers Care Accounts Manager Name Role Phone Jeevan Kevin MD Primary Care Provider [phone] Reason for Referral * Consultation (Routine) - Authorized Specialty Diagnoses / Procedures Referred By Jono t Referred To Contact Neurosurgery Diagnoses Brain neoplasm (CMS/HCC) Kiko Barnard APRN [address] [place] [address] Phone: tel: fax: Referral ID Status Reason Start Date Expiration Date Visits Requested Visits Authorized [id number] Authorized Specialty Services Required 03/28/2024 09/27/2025 1 1 Encounter Details Date Type Department Care Team (Late st Contact Info) Description 03/28/2024 Community [facility] [address] [place] [address] Kiko Barnard APRN [address] [place] [address] Brain neoplasm (CMS/HCC) (Primary Dx) Social History [...] brain documented in this encounter Care Teams Accounts Manager Relationship Specialty Start Date End Date Jeevan Kevin MD [address] [place] [address] PCP - General 12/21/20 documented as of this encounter
--- OUTSIDE RECORDS SUMMARY | 2025-07-10 11:34 | XMS_ITS | Encounter Summary ---
Author Organization [facility] Address [address] [place] [address] Care Team Providers Care Cloth Desizing Range Tender Name Role Phone Jeevan Kevin MD Primary Care Provider + [phone] Reason for Referral * Consultation (Routine) - Authorized Specialty Diagnoses / Procedures Referred By Contac t Referred To Contact Neurosurgery Diagnoses Neoplasm of brain (CMS/HCC) Elian Taylor MD [address] [place] [address] Phone: tel: fax: Referral ID Status Reason Start Date Expiration Date Visits Requested Visits Authorized [id number] Authorized Specialty Services Required 02/02/2024 08/03/2025 1 1 Encounter Details Date Type Department Care Team (Late st Contact Info) Description 02/02/2024 Community [facility] [address] [place] [address] [place] [address] [place] [phone] Neoplasm of brain (CMS/HCC) (Primary Dx) Social [...] brain documented in this encounter Care Teams Cloth Desizing Range Tender Relationship Specialty Start Date End Date Jeevan Kevin MD [address] [place] [address] PCP - General 12/21/20 documented as of this encounter
== END 2025-07-05 23:59 ==
LOC: LAB.DROPOF 07-10 10:46
PROVIDERS: PCP Family Medicine; Visit Provider Family Medicine
DX: E78.2 Mixed hyperlipidemia (principal); G62.9 Polyneuropathy, unspecified; I10 Essential (primary) hypertension; Z11.59 Encounter for screening for other viral diseases
CPT/HCPCS: 80053; 80061; 84443; 85025; 86803; 87340; 87389